=== PATIENT | female | born 1960 | race Caucasian/White ===

== ENCOUNTER 2019-05-18 10:47 | Emergency (ER) | payer MEDICAID, SELFPAY ==
[2019-05-18 10:53] VITALS: BP 131/78; PULSE 50; RESP 18; TEMP 36.4; O2SAT 96; BMI 44.4
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
--- NOTE | 2019-05-18 11:34 | ECG_ITS ---
Measurements Intervals [place] Rate: 46 P: 26 [place]: 130 QRS: -39 QRSD: 111 T: -3 QT: 452 QTc: 397 SINUS BRADYCARDIA LEFT AXIS DEVIATION [QRS AXIS < -30] MODERATE INTRAVENTRICULAR CONDUCTION DELAY [110+ ms QRS DURATION] VOLTAGE CRITERIA FOR LVH [MEETS CRITERIA IN ONE OF: R(aVL), S(V1), R(V5), R(V5 (V5/V6)+S(V1)] INTERPRETATION BASED ON A DEFAULT AGE OF 40 YEARS Compared to ECG 09/27/2018 12:28:13 Intraventricular conduction delay now present Sinus rhythm no longer present Electronically Signed On 05-18-2019 15:07:35 SIX PACK PACKER by Naun Vizcarra M.D. [id number]
--- NOTE | 2019-05-18 11:34 | XR_ITS ---
WS: [id number] PORTABLE CHEST HISTORY: chest pain COMPARISON: 09/27/2018 Lungs are clear and well expanded. No pleural effusion or pneumothorax. Cardiac size: Normal. Mediastinum/Aorta: Normal mediastinum. [place] placement in the LEFT humeral head. XR/XR chest 1V portable [id number] IMPRESSION: Unremarkable portable chest.
[2019-05-18 12:27] LABS: Basophils # 0.1 10^3/uL (0.0-0.1); Basophils % 0.9 %; Eosinophils # 0.2 10^3/uL (0.0-0.8); Hematocrit 41.1 % (37.0-47.0); Hemoglobin 12.9 g/dL (11.5-15.3); Lymphocytes # 1.7 10^3/uL (0.8-4.8); Lymphocytes % 32.7 %; Mean Corpuscular HGB Conc 31.4 g/dL (30.0-36.0); Mean Corpuscular Hemoglobin 28.7 pg (28.0-34.0); Mean Corpuscular Volume 91.3 fL (81-99); Mean Platelet Volume 10.1 fL (7.4-10.4); Monocytes # 0.4 10^3/uL (0.2-0.9); Monocytes % 8.3 %; Neutrophils # 2.9 10^3/uL (1.8-7.7); Neutrophils % 53.9 %; Nucleated Red Blood Cells % 0 %; Platelet Count 355 10^3/cmm (130-400); Red Cell Distribution Width 12.2 % (12.1-15.1); White Blood Count 5.3 10^3/uL (4.0-10.0)
[2019-05-18] MEDS: acetaminophen 500 mg Tablet PO (12:56)
[2019-05-18] MEDS: aspirin 325 mg Tablet PO (12:56)
[2019-05-18 12:58] LABS: Alanine Aminotransferase 14 U/L (0-33); Albumin Level 4.3 g/dL (3.5-5.2); Alkaline Phosphatase 91 IU/L (35-105); Anion Gap 16.3 (5-19); Aspartate Amino Transferase 16 U/L (0-32); Blood Urea Nitrogen 15 mg/dL (8-23); Calcium 9.2 mg/Dl (8.8-10.2); Carbon Dioxide 20 mmol/L (22-29); Chloride 106 mmol/L (98-107); Globulin 2.5 g/dL (1.3-4.6); Glomerular Filtration Rate 73.2 mL/min (90-130); Glucose 199 mg/dL (74-106); NT Pro B Type Natriuretic Pept 165 pg/mL (0-125); Potassium 4.3 mmol/L (3.5-5.1); Sodium 138 mmol/L (136-145); Total Bilirubin 0.2 mg/dL (0.15-1.2); Total Protein 6.8 g/dL (6.6-8.7)
[2019-05-18 13:28] LABS: Troponin(5th) Baseline 36 ng/mL (0-10)
[2019-05-18 15:03] LABS: Troponin 5 2HR 39.11 ng/mL (0-10)
[2019-05-18 15:08] LABS: Troponin 5 2HR Delta 3.11 ABS# (0-10)
[2019-05-18 15:38] VITALS: BP 133/64; PULSE 52; RESP 20; O2SAT 94
--- NOTE | 2019-05-18 17:34 | ECG_ITS ---
Measurements Intervals [place] Rate: 46 P: 24 [place]: 129 QRS: -38 QRSD: 94 T: -8 QT: 459 QTc: 405 SINUS BRADYCARDIA LEFT AXIS DEVIATION [QRS AXIS < -30] VOLTAGE CRITERIA FOR LVH [MEETS CRITERIA IN ONE OF: R(aVL), S(V1), R(V5), R (V5/V6)+S(V1)] Compared to ECG 09/27/2018 12:28:13 Sinus rhythm no longer present Electronically Signed On 05-18-2019 15:08:42 HYDROELECTRIC PLANT OPERATOR by Naun Vizcarra M.D. [id number]
--- NOTE | 2019-05-21 15:56 | DCPLANNER ---
environmental department manager had message to schedule a follow up appointment for patient with [facility]. environmental department manager called [facility], spoke with Latrice, a follow up appointment is scheduled for Wednesday, May 22, 2019 at 11:[address] Mitchell. Clinic will call patient with appointment information.
--- NOTE | 2019-05-25 14:48 | DCPLANNER ---
Patient attended appointment scheduled with [facility].
== END 2019-05-18 15:32 | disposition home or self-care (01) ==
PROVIDERS: Emergency Provider Family Medicine; Family Provider Internal Medicine; PCP Internal Medicine
DX: R07.9 Chest pain, unspecified (principal); I25.10 Atherosclerotic heart disease of native coronary artery without angina pectoris
CPT/HCPCS: 36415; 71045; 80053; 83880; 84484; 85025; 93005; 99281

== ENCOUNTER 2019-06-19 14:12 | Outpatient (CLI) | payer MEDICAID, SELFPAY ==
--- NOTE | 2019-06-19 14:17 | XR_ITS ---
WS: [id number] CHEST 2 VIEWS HISTORY: HYPOXEMIA, FEVER, COUGH COMPARISON: 05/18/2019 Lungs: Clear with no abnormality. No pleural effusion or pneumothorax. Cardiac size: Normal. Mediastinum/Aorta: Normal mediastinum. Bones: Prior anchor placement LEFT humeral head from rotator cuff repair. Mild thoracic spondylosis. XR/XR chest 2V* [id number] IMPRESSION: No acute cardiopulmonary disease. No pneumonia.
== END 2019-06-19 14:13 | disposition home or self-care (01) ==
LOC: RADWPI 14:15
PROVIDERS: Family Provider Internal Medicine; PCP Internal Medicine; Visit Provider Nurse Practitioner Family
DX: R09.02 Hypoxemia (principal); R05 Cough; R50.9 Fever, unspecified
CPT/HCPCS: 71046

== ENCOUNTER 2019-07-24 12:25 | Outpatient (CLI) | payer MEDICAID, SELFPAY ==
--- NOTE | 2019-07-24 12:33 | XR_ITS ---
WS: [id number] Right arm and humerus, 2 views, 07/24/2019 Clinical Data: R SHOULDER ARM PAIN Comparison: None. Findings: No fractures or dislocations are seen. The shaft of the humerus is intact. Soft tissues are normal. The visualized right elbow shows no abnormalities. XR/[place] [id number] Impression: Negative right arm and humerus.
--- NOTE | 2019-07-24 12:33 | XR_ITS ---
WS: [id number] Right shoulder, 2 views, 07/24/2019 Clinical Data: R SHOULDER ARM PAIN Comparison: None. Findings: No fractures or dislocations are seen. The AC joint is normal. The adjacent right clavicle, right sca pula and ribs are normal. The soft tissues are unremarkable. XR/XR shoulder RT min 2V* [id number] Impression: Negative right shoulder.
== END 2019-07-24 12:26 | disposition home or self-care (01) ==
PROVIDERS: Family Provider Internal Medicine; PCP Internal Medicine; Visit Provider Internal Medicine
DX: M25.511 Pain in right shoulder (principal); M79.621 Pain in right upper arm
CPT/HCPCS: 73030; 73060

== ENCOUNTER 2020-01-25 10:35 | Outpatient (CLI) | payer MEDICAID, SELFPAY ==
--- NOTE | 2020-01-25 10:43 | XR_ITS ---
WS: [id number] Right knee, 3 views, 01/25/2020 Clinical Data: R KNEE PAIN Comparison: None. Findings: There is lateral joint compartment narrowing with an osteophyte of the lateral tibial plateau and the lateral femoral condyle. The patella is intact with a small spur of the anterior superior and information systems auditor ior superior margins. There is a larger spur at the anterior inferior aspect. There are no fractures or dislocations. The soft tissues are normal. XR/XR knee RT 4V [id number] Impression: 1. Severe lateral joint compartment narrowing. 2. Mild posterior patellofemoral osteoarthritis.
--- NOTE | 2020-01-25 11:22 | MM_ITS ---
WS: [id number] BILATERAL DIGITAL SCREENING MAMMOGRAM WITH CAD CLINICAL INFORMATION: SCREEN HISTORY: Screening mammogram. No current complaints. COMPARISON: TECHNIQUE: Bilateral CC and MLO views. FINDINGS: Fatty-replaced breasts bilaterally. No suspicious focal mass, asymmetry, calcifications, or ui architect ural distortion. No evidence of malignancy. Lucent centered calcifications. MM/[place] [id number] IMPRESSION: BI-RADS: 2-Benign FOLLOW UP: 1 Year Follow-up Recommend return to annual screening mammography.
== END 2020-01-25 10:36 | disposition home or self-care (01) ==
PROVIDERS: PCP Internal Medicine; Visit Provider Internal Medicine
DX: Z12.31 Encounter for screening mammogram for malignant neoplasm of breast (principal); M17.11 Unilateral primary osteoarthritis, right knee
CPT/HCPCS: 73564; 77067

== ENCOUNTER 2020-02-26 09:29 | Outpatient (CLI) | payer MEDICAID, SELFPAY ==
--- NOTE | 2020-02-26 09:46 | XR_ITS ---
WS: [id number] PROCEDURE: XR chest 2V* [id number] CLINICAL INFORMATION: COUGH, VIRAL SYNDROME COMPARISON: June 19, 2019 FINDINGS: Heart: Normal cardiac silhouette. Lungs: Lungs are clear. No consolidation or pleural fluid. No acute pulmonary infiltrates. Bones: Left rotator cuff anchors. Hypertrophic changes thoracic spine with mild thoracic kyphosis. XR/XR chest 2V* [id number] IMPRESSION: Mild chronic emphysematous changes. Lungs appear well aerated. No acute pulmona ry infiltrates.
== END 2020-02-26 09:30 | disposition home or self-care (01) ==
PROVIDERS: PCP Internal Medicine; Visit Provider Nurse Practitioner Family
DX: R05 Cough (principal); B97.89 Other viral agents as the cause of diseases classified elsewhere
CPT/HCPCS: 71046

== ENCOUNTER 2020-07-08 12:17 | Outpatient (CLI) | payer MEDICAID, SELFPAY ==
--- NOTE | 2020-07-08 12:35 | USCV_ITS ---
Angelica Acevedo Age: 60 Gender: F : 1960 Exam Date: 07/08/2020 12:49 Ordering Phys: Concha Whitaker Technologist: Desirae Roman Exam Location: [facility] [place] Indication: RLE PAIN AND SWELLING HISTORY: Lower extremity swelling. Lower extremity pain. PROCEDURES: Venous duplex imaging was performed in only the right lower extremity. The following venous structures were evaluated: common femoral vein, profunda vein, proximal portion of the greater saphenous vein, superficial femoral vein, and the popliteal vein. In addition, the posterior tibial veins were evaluated. Serial compression, augmentation maneuvers, and spectral Doppler flow evaluation were performed. FINDINGS: No evidence of DVT seen in any vessel visualized at this time. CONCLUSIONS No evidence of right lower extremity DVT. Brandon Emmanuel MD (Electronically Signed) Final Date: 08 July 2020 15:10 S
== END 2020-07-08 12:18 | disposition home or self-care (01) ==
LOC: RAD 12:20
PROVIDERS: PCP Internal Medicine; Visit Provider Nurse Practitioner Family
DX: M79.604 Pain in right leg (principal); R22.41 Localized swelling, mass and lump, right lower limb
CPT/HCPCS: 93971

== ENCOUNTER 2020-08-30 19:56 | Emergency (ER) | payer MEDICAID, SELFPAY ==
[2020-08-30 20:01] VITALS: BP 169/89; PULSE 83; RESP 18; TEMP 36.4; O2SAT 97; BMI 45.7
[2020-08-30 21:31] LABS: Add Urine Microscopic? NO; Charge for UA Resulting for Rev
--- NOTE | 2020-08-30 21:33 | CTR_ITS ---
PROCEDURE INFORMATION: Exam: CT Head Without Contrast Exam date and time: 08/30/2020 10:16 PM Age: 60 years old Clinical indication: Patient HX: C/O dizziness and weakness w elev blood sugar TECHNIQUE: Imaging protocol: Computed tomography of the head without contrast. Radiation optimization: All CT scans at this facility use at least one of these dose optimization techniques: automated exposure control; mA and/or kV adjustment per patient size (includes targeted exams where dose is matched to clinical indication); or iterative reconstruction. COMPARISON: CT head wo con* [id number] 10/09/2016 5:23 PM RADIATION DOSE METRICS: Total DLP (mGy-cm): 867 FINDINGS: Brain: There is mild diffuse cerebral atrophy. Patchy areas of hypoattenuation are seen in the deep white matter of the cerebral hemispheres bilaterally compatible with deep white matter microvascular disease. There is some subtle hypoattenuation seen in the right subthalamic region appears more distinct today compared with 10/09/2016 possibly representing lacunar infarction of indeterminate age. Follow-up MRI evaluation with diffusion-weighted imaging sequences is suggested. Cerebral ventricles: No ventriculomegaly. Bones/joints: Unremarkable. No acute fracture. Paranasal sinuses: Visualized sinuses are unremarkable. No fluid levels. Mastoid air cells: Visualized mastoid air cells are well aerated. Soft tissues: Unremarkable. CT/CT head wo con* [id number] IMPRESSION: Patchy area hypoattenuation seen in the subthalamic region on the right possibly representing a lacunar infarction of indeterminate age. Follow-up evaluation with MRI including diffusion-weighted imaging sequences is suggested. Radiation Dose CTDIVOL = (mGy): DLP = 867 (mGy-cm)
--- NOTE | 2020-08-30 21:33 | ECG_ITS ---
[facility] Test Date: 2020-08-30 Pat Name: Angelica Acevedo Department: Room: Gender: Female Wind Field Manager: : 1960 Requested By: Justin Ribeiro Order Number: [id number] Shayy MD: Linda Mcpherson M.D. Measurements Intervals [place] Rate: 76 P: 41 [place]: 136 QRS: -44 QRSD: 113 T: 46 QT: 389 QTc: 439 Interpretive Statements SINUS RHYTHM LEFT AXIS DEVIATION [QRS AXIS < -30] MODERATE INTRAVENTRICULAR CONDUCTION DELAY [110+ ms QRS DURATION] VOLTAGE CRITERIA FOR LVH [MEETS CRITERIA IN ONE OF: R(aVL), S(V1), R(V5), R(V5/V6)+S(V1)] Compared to ECG 05/18/2019 13:13:41 Intraventricular conduction delay now present Sinus bradycardia no longer present Electronically Signed On 08-31-2020 10:28:09 CDT by Linda Mcpherson M.D. [id number] f
--- NOTE | 2020-08-30 21:33 | XRR_ITS ---
PROCEDURE INFORMATION: Exam: XR Chest Exam date and time: 08/30/2020 9:34 PM Age: 60 years old Clinical indication: Other: Weakness TECHNIQUE: Imaging protocol: XR of the chest. Views: 1 view. COMPARISON: CR XR chest 2V* [id number] 02/26/2020 9:53 AM FINDINGS: Lungs: Unremarkable. No consolidation. Pleural spaces: Unremarkable. No pleural effusion. No pneumothorax. Heart/Mediastinum: Unremarkable. No cardiomegaly. Bones/joints: Unremarkable. XR/XR chest 1V portable [id number] IMPRESSION: No acute findings.
--- NOTE | 2020-08-30 21:38 | W.ED.GENADLT ---
HPI - General Adult General: Chief complaint: General Medical Stated complaint: HIGH BLOOD SUGAR Time Seen by Provider: 08/30/20 21:19 Source: patient Mode of arrival: ambulatory Limitations: no limitations History of Present Illness: HPI narrative: 60-year-old female states that her blood sugars been running high throughout the day and was 550 earlier today. States that she woke up this morning and felt dizzy and weak. She states she is had some blurred vision along with some slurred speech. Patient here has had no slurred speech currently. She states that she has had no vomiting or diarrhea. Denies any headache. Denies any worsening improving factors. Associated symptoms: Deny chest pain, dyspnea, nausea, rash or vomiting Review of Systems Const: Denies: fever(s), chills, body aches or change in appetite Eyes: Denies: blurry vision or eye discomfort ENMT: Denies: throat pain or dental pain Card: Denies: chest pain Resp: Denies: dyspnea GI: Denies: abdominal pain, nausea, vomiting or diarrhea : Denies: dysuria Musc: Denies: neck pain or back pain Skin/Breast: Denies: rash Neuro: Reports: numbness in extremities and Slurred speech present Psych: Denies: depression Alec/Lymph: Denies: easy bruising All/Imm: Denies: urticaria PFSH ED PFSH: Medical History (Updated 08/30/20 @ 22:59 by Justin Ribeiro MD) CHF (congestive heart failure) Chronic diastolic heart failure secondary to coronary artery disease Coronary artery disease Hyperlipidemia Hypertension Hypothyroid Umbilical hernia Surgical History History of carpal tunnel surgery History of heart artery stent History of shoulder surgery Family History Other CAD (coronary artery disease) Cancer Hyperlipidemia Hypertension Social History Smoking and tobacco status: never smoked Alcohol intake: never Physical Exam Const: COMMON NORMALS: no acute distress, patient oriented x3, healthy appearing and alert ORIENTATION/CONSCIOUSNESS: Yes oriented to person, Yes oriented to place and Yes oriented to time HENMT: COMMON NORMALS: normocephalic and atraumatic HEAD & SCALP: normocephalic and atraumatic Eye: COMMON NORMALS: Equal, round and reactive pupils present and EOMs intact bilaterally PUPIL: Yes Equal, round and reactive pupils present Neck/C-Spine: COMMON NORMALS: full ROM and supple Chest: COMMONS NORMALS: normal inspection of the chest and normal palpation of entire chest wall Resp: COMMON NORMALS: normal respiratory effort, No retractions, No use of accessory muscles and clear to auscultation bilaterally AUSCULTATION: clear to auscultation bilaterally Cardio: COMMON NORMALS: regular rate, regular rhythm and No murmurs present (Cardio) RATE: regular rate RHYTHM: regular rhythm GI: COMMON NORMALS: Normal to inspection, nondistended, normoactive bowel sounds present, Soft to palpation, non-tender and no masses PALPATION: Yes Soft to palpation Extremity: COMMON NORMALS: normal to inspection and full ROM Neuro: COMMON NORMALS: patient oriented x3, moves all extremities and no focal motor deficits SENSORIUM/ORIENTATION: Yes alert, Yes oriented to person, Yes oriented to place and Yes oriented to time SPEECH: speech normal GAIT: Yes Normal gait present MOTOR EXAM: 5/5 motor strength present throughout Psych: COMMON NORMALS: mental status grossly normal, Normal thought process present and cooperative THOUGHT PROCESS: Normal thought process present Skin: COMMON NORMALS: no rashes or lesions noted and no wounds GENERAL SKIN EXAM: no rashes or lesions noted Course Vital Signs: Vital signs: Vital Signs Temperature 97.6 F 08/30/20 20:01 Pulse Rate 87 08/30/20 23:13 Respiratory Rate 17 08/30/20 23:13 Blood Pressure 145/79 08/30/20 23:13 Pulse Oximetry 99 08/30/20 23:13 MDM - General Adult MDM Narrative: Medical decision making narrative: Angelica presents with hyperglycemia is improved. Her blood sugar is back to normal level. All her symptoms have resolved and she feels much improved. I did go over CT findings informed her there is a concern of a possible stroke. I strongly recommended admission for an MRI. She states she feels improved and does not want stay in the hospital. She states she has a appoint with her PCP on and would rather get an MRI outpatient. I informed her that she could have a worsening stroke. She understands this and has decision made capacity. She decide to sign out AMA. Will start on glipizide and she is return if worsening or if she changes her mind. She understands agrees to plan. Lab Data: Labs: Lab Results 08/30/20 08/30/20 08/30/20 Range/Units 21:00 22:01 22:01 WBC 6.9 (4.0-10.0) 10^3/ uL RBC 4.50 (4.1-5.3) 10^6/u L Hgb 13.4 (11.5-15.3) g/dL Hct 40.7 (37.0-47.0) % MCV 90.4 (81-99) fL MCH 29.8 (28.0-34.0) pg MCHC 32.9 (30.0-36.0) g/dL RDW 12.0 L (12.1-15.1) % Plt Count 370 (130-400) 10^3/c mm MPV 10.0 (7.4-10.4) fL Neut % (Auto) 60.1 % Lymph % (Auto) 29.5 % Reynolds % (Auto) 7.1 % Eos % (Auto) 2.5 % Baso % (Auto) 0.7 % Neut # (Auto) 4.14 (1.8-7.7) 10^3/u L Lymph # (Auto) 2.0 (0.8-4.8) 10^3/u L Reynolds # (Auto) 0.5 (0.2-0.9) 10^3/u L Eos # (Auto) 0.2 (0.0-0.8) 10^3/u L Baso # (Auto) 0.1 (0.0-0.1) 10^3/u L Nucleated RBC % (a uto) 0 % Nucleated RBCs # 0.0 /100WBC Sodium 134 L (136-145) mmol/L Potassium 4.5 (3.5-5.1) mmol/L Chloride 98 (98-107) mmol/L Carbon Dioxide 27 (22-29) mmol/L Anion Gap 13.5 (5-19) BUN 17 (8-23) mg/dL Creatinine 0.7 (0.5-0.9) mg/dL GFR Calculation 84.8 L (90-130) mL/min Glucose 341 H (65-115) mg/dL POC Glucose (70-110) mg/dL Calculated Osmolal ity 293 (285-295) mOsm/k g Calcium 8.9 (8.5-10.5) mg/dL Total Bilirubin 0.3 (0.15-1.2) mg/dL AST 17 (0-32) U/L ALT 20 (0-33) U/L Alkaline Phosphata se 107 H (35-105) IU/L Total Protein 7.5 (6.6-8.7) g/dL Albumin 4.1 (3.5-5.2) g/dL Globulin 3.4 (1.3-4.6) g/dL Urine Color Yellow (Yellow) Urine Appearance Clear (CLEAR) Urine pH 5 (5-7) Ur Specific Gravit y 1.010 (1.005-1.030) Urine Protein Neg (Negative) Urine Glucose (UA) 4+ H (Normal) Urine Ketones Negative (Negative) Urine Blood Neg (Negative) Urine Nitrate Negative (Negative) Urine Bilirubin Neg (Negative) Urine Urobilinogen Norm (Negative) mg/dL Ur Leukocyte Jacklyn ase Negative (Negative) Serum Ketones (Negative) 08/30/20 08/30/20 08/30/20 Range/Units 22:01 22:08 22:46 WBC (4.0-10.0) 10^3/ uL RBC (4.1-5.3) 10^6/u L Hgb (11.5-15.3) g/dL Hct (37.0-47.0) % MCV (81-99) fL MCH (28.0-34.0) pg MCHC (30.0-36.0) g/dL RDW (12.1-15.1) % Plt Count (130-400) 10^3/c mm MPV (7.4-10.4) fL Neut % (Auto) % Lymph % (Auto) % Reynolds % (Auto) % Eos % (Auto) % Baso % (Auto) % Neut # (Auto) (1.8-7.7) 10^3/u L Lymph # (Auto) (0.8-4.8) 10^3/u L Reynolds # (Auto) (0.2-0.9) 10^3/u L Eos # (Auto) (0.0-0.8) 10^3/u L Baso # (Auto) (0.0-0.1) 10^3/u L Nucleated RBC % (a uto) % Nucleated RBCs # /100WBC Sodium (136-145) mmol/L Potassium (3.5-5.1) mmol/L Chloride (98-107) mmol/L Carbon Dioxide (22-29) mmol/L Anion Gap (5-19) BUN (8-23) mg/dL Creatinine (0.5-0.9) mg/dL GFR Calculation (90-130) mL/min Glucose (65-115) mg/dL POC Glucose 353 H 164 H (70-110) mg/dL Calculated Osmolal ity (285-295) mOsm/k g Calcium (8.5-10.5) mg/dL Total Bilirubin (0.15-1.2) mg/dL AST (0-32) U/L ALT (0-33) U/L Alkaline Phosphata se (35-105) IU/L Total Protein (6.6-8.7) g/dL Albumin (3.5-5.2) g/dL Globulin (1.3-4.6) g/dL Urine Color (Yellow) Urine Appearance (CLEAR) Urine pH (5-7) Ur Specific Gravit y (1.005-1.030) Urine Protein (Negative) Urine Glucose (UA) (Normal) Urine Ketones (Negative) Urine Blood (Negative) Urine Nitrate (Negative) Urine Bilirubin (Negative) Urine Urobilinogen (Negative) mg/dL Ur Leukocyte Jacklyn ase (Negative) Serum Ketones Negative (Negative) Imaging Data^: CT Head: Attestation: I personally reviewed and interpreted this imaging study as follows: My impression: [address] [address] [address] Scan Report Signed Patient: Angelica Acevedo Unit #: [id number] : 1960 Age/Sex: 60 / F ADM Date: 08/30/20 Loc: ER Room/Bed: Attending Dr: Ordering Provider/Ordering MD: Justin Ribeiro MD Date of Service: 08/30/20 Procedure(s): CT head wo con* [id number] Accession Number(s): [id number] Report Number: [id number] PROCEDURE INFORMATION: Exam: CT Head Without Contrast Exam date and time: 08/30/2020 10:16 PM Age: 60 years old Clinical indication: Patient HX: C/O dizziness and weakness w elev blood sugar TECHNIQUE: Imaging protocol: Computed tomography of the head without contrast. Radiation optimization: All CT scans at this facility use at least one of these dose optimization techniques: automated exposure control; mA and/or kV adjustment per patient size (includes targeted exams where dose is matched to clinical indication); or iterative reconstruction. COMPARISON: CT head wo con* [id number] 10/09/2016 5:23 PM RADIATION DOSE METRICS: Total DLP (mGy-cm): 867 FINDINGS: Brain: There is mild diffuse cerebral atrophy. Patchy areas of hypoattenuation are seen in the deep white matter of the cerebral hemispheres bilaterally compatible with deep white matter microvascular disease. There is some subtle hypoattenuation seen in the right subthalamic region appears more distinct today compared with 10/09/2016 possibly representing lacunar infarction of indeterminate age. Follow-up MRI evaluation with diffusion-weighted imaging sequences is suggested. Cerebral ventricles: No ventriculomegaly. Bones/joints: Unremarkable. No acute fracture. Paranasal sinuses: Visualized sinuses are unremarkable. No fluid levels. Mastoid air cells: Visualized mastoid air cells are well aerated. Soft tissues: Unremarkable. CT/CT head wo con* [id number] IMPRESSION: Patchy area hypoattenuation seen in the subthalamic region on the right possibly representing a lacunar infarction of indeterminate age. Follow-up evaluation with MRI including diffusion-weighted imaging sequences is suggested. EKG Data^: EKG 1: Attestation: I personally reviewed and interpreted this EKG as follows: EKG interpretation date: 08/30/20 EKG interpretation time: 22:13 Interpretation: nsr hr [address] or t wave abnormalities qrs 113 qtc 419 Computer generated interpretation: Head CT 08/30/20 21:33 IMPRESSION: Patchy area hypoattenuation seen in the subthalamic region on the right possibly representing a lacunar infarction of indeterminate age. Follow-up evaluation with MRI including diffusion-weighted imaging sequences is suggested. Radiation Dose CTDIVOL = (mGy): DLP = 867 (mGy-cm) Discharge Plan Discharge Patient Disposition: Left Against Medical Advice Clinical Impression: Hyperglycemia, Brain TIA Condition: Stable Prescriptions: New glipizide 5 mg tablet extended release 24hr 5 mg PO DAILY Qty: 30 RF: 0 No Action (DME) Diabetic Shoes Qty: 1 RF: 0 Plavix 75 mg tablet 75 mg PO DAILY Qty: 90 RF: 3 metoprolol tartrate 25 mg tablet 12.5 mg PO BID Qty: 30 RF: 1 isosorbide mononitrate 30 mg tablet extended release 24 hr See Rx Instructions .ROUTE .COMPLEX Qty: 60 RF: 1 Aspir-81 81 mg Tablet,Delayed Release (Dr/Ec) 81 mg PO DAILY RF: 0 levothyroxine 150 mcg Tablet 150 mcg PO DAILY RF: 0 Referrals: Leslie Hansen DO [Primary Care Provider] - 1-3 days Discharge Diet: Advance as tolerated Discharge Activity: Resume usual activity Patient Instructions: Hyperglycemia, Transient Ischemic Attack (ED) Coding Level of Care Code ED Hospital Medical Assistant for Philip Alexandre Exam Comprehensive NIH stroke score NIHSS Level Of Consciousness - 1a: 0 Level Of Consciousness Questions - 1b: Both Correct Level Of Consciousness Commands - 1c: Both Correct Best Gaze - 2: Normal Visual [place] - 3: No Visual Loss Facial Palsy - 4: Normal Motor Arm Right - 5: No Drift Motor Arm Left - 5: No Drift Motor Leg Right - 6: No Drift Motor Leg Left - 6: No Drift Limb Ataxia - 7: Absent Sensory - 8: Normal Best Language - 9: No Aphasia Dysarthia - 10: Normal Extinction And Inattention - 11: 0 Score Total Score: 0
[2020-08-30 21:51] LABS: Bilirubin Urine Neg (Negative); Blood Urine Neg (Negative); Glucose Urine UA 4+ (Normal); Ketones Urine Negative (Negative); Nitrate Urine Negative (Negative); Protein Urine Neg (Negative); Urine Appearance Clear (CLEAR); Urine Color Yellow (Yellow); pH Urine 5 (5-7)
[2020-08-30 21:52] LABS: Leukocyte Esterase Urine Negative (Negative); Urobilinogen Urine Norm (Negative)
[2020-08-30] MEDS: sodium chloride 0.9% 1,000 ML 999 ML IV (22:01)
[2020-08-30] MEDS: insulin regular-human 100 units/1 mL 10 UNIT IVP (22:01)
[2020-08-30 22:11] LABS: Basophils # 0.1 10^3/uL (0.0-0.1); Basophils % 0.7 %; Eosinophils # 0.2 10^3/uL (0.0-0.8); Eosinophils % 2.5 %; Hematocrit 40.7 % (37.0-47.0); Hemoglobin 13.4 g/dL (11.5-15.3); Lymphocytes % 29.5 %; Mean Corpuscular HGB Conc 32.9 g/dL (30.0-36.0); Mean Corpuscular Hemoglobin 29.8 pg (28.0-34.0); Mean Corpuscular Volume 90.4 fL (81-99); Monocytes # 0.5 10^3/uL (0.2-0.9); Monocytes % 7.1 %; Neutrophils # 4.14 10^3/uL (1.8-7.7); Neutrophils % 60.1 %; Nucleated Red Blood Cells % 0 %; Platelet Count 370 10^3/cmm (130-400); White Blood Count 6.9 10^3/uL (4.0-10.0)
[2020-08-30 22:13] LABS: Glucose Point of Care 353 mg/dL (70-110)
--- NOTE | 2020-08-30 22:16 | PC.NURSE ---
EKG taken and given to Dr. Ribeiro
[2020-08-30 22:17] VITALS: BP 112/78; PULSE 102; RESP 16; O2SAT 98
[2020-08-30 22:30] LABS: Ketone (Acetest) Serum Negative (Negative)
[2020-08-30 22:35] LABS: Alanine Aminotransferase 20 U/L (0-33); Albumin Level 4.1 g/dL (3.5-5.2); Alkaline Phosphatase 107 IU/L (35-105); Anion Gap 13.5 (5-19); Aspartate Amino Transferase 17 U/L (0-32); Blood Urea Nitrogen 17 mg/dL (8-23); Calcium 8.9 mg/dL (8.5-10.5); Carbon Dioxide 27 mmol/L (22-29); Chloride 98 mmol/L (98-107); Globulin 3.4 g/dL (1.3-4.6); Glomerular Filtration Rate 84.8 mL/min (90-130); Glucose 341 mg/dL (65-115); Osmolality Calculated 293 mOsm/kg (285-295); Potassium 4.5 mmol/L (3.5-5.1); Sodium 134 mmol/L (136-145); Total Bilirubin 0.3 mg/dL (0.15-1.2); Total Protein 7.5 g/dL (6.6-8.7)
[2020-08-30 22:49] LABS: Glucose Point of Care 164 mg/dL (70-110)
[2020-08-30 23:13] VITALS: BP 145/79; PULSE 87; RESP 17; O2SAT 99
== END 2020-08-30 23:13 | disposition left against medical advice (07) ==
PROVIDERS: Emergency Provider Emergency Medicine; PCP Internal Medicine
DX: R73.9 Hyperglycemia, unspecified (principal); Z79.02 Long term (current) use of antithrombotics/antiplatelets; Z79.82 Long term (current) use of aspirin; I11.0 Hypertensive heart disease with heart failure; I50.30 Unspecified diastolic (congestive) heart failure; I25.10 Atherosclerotic heart disease of native coronary artery without angina pectoris; E78.5 Hyperlipidemia, unspecified
CPT/HCPCS: 36416; 70450; 71045; 80053; 81003; 82009; 82962; 85025; 93005; 96361; 96374; 99283; J1815; J7030

== ENCOUNTER 2020-09-08 16:38 | Emergency (ER) | payer MEDICAID, SELFPAY ==
[2020-09-08 16:45] VITALS: BP 186/86; PULSE 87; RESP 20; TEMP 36.1; O2SAT 95; BMI 45.7
--- NOTE | 2020-09-08 18:51 | XR_ITS ---
WS: [id number] Exam: XR chest 1V portable [id number] Date/Time of Exam: 09/08/2020 7:02 PM Reason For Exam: cp Comparison 08/30/2020. Findings: The lungs are clear and fully expanded. Costophrenic angles are sharp. No infiltrates. Bronchovascula r relief appears normal. Cardiac silhouette is unremarkable. Bony elements are intact. Anchoring scre ws in the left humeral head. XR/XR chest 1V portable [id number] IMPRESSION: Unremarkable chest radiograph.
--- NOTE | 2020-09-08 18:51 | ECG_ITS ---
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1960 Requested By: Justni Ribeiro Order Number: [id number] Reading MD: JOHNATHAN FISHMAN Measurements Intervals [place] Rate: 89 P: 23 MO: 140 QRS: -41 QRSD: 97 T: 42 QT: 352 QTc: 430 Interpretive Statements SINUS RHYTHM LEFT AXIS DEVIATION [QRS AXIS < -30] PATTERN CONSISTENT WITH PULMONARY DISEASE VOLTAGE CRITERIA FOR LVH [MEETS CRITERIA IN ONE OF: R(aVL), S(V1), R(V5), R(V5/V6)+S(V1)] Compared to ECG 08/30/2020 22:13:11 Intraventricular conduction delay no longer present Electronically Signed On 09-08-2020 21:23:17 CDT by JOHNATHAN FISHMAN [id number]
--- NOTE | 2020-09-08 19:00 | ED_ITS ---
HPI - Chest Pain General: Chief Complaint: Chest Pain Stated Complaint: chest pain twice today Time Seen by Provider: 09/08/20 18:37 Source: patient Mode of arrival: ambulatory Limitations: no limitations History of Present Illness: HPI narrative: 60-year-old female who has a history of coronary disease had stent placed years ago. She states that she has had 2 severe episodes of chest pain today that felt like her previous heart attack. She states it was relieved with nitro. States her pain is currently a 3 out of 10. Denies any vomiting or diaphoresis. She denies any shortness of breath. Denies any worsening factors and it was improved with nitro. Associated symptoms: Deny abdominal pain, dyspnea, fever(s), nausea or vomiting Review of Systems Const: Denies: fever(s), chills, body aches or change in appetite Eyes: Denies: blurry vision or eye discomfort ENMT: Denies: throat pain or dental pain Card: Reports: chest pain Resp: Denies: dyspnea GI: Denies: abdominal pain, nausea, vomiting or diarrhea : Denies: dysuria Musc: Denies: neck pain or back pain Skin/Breast: Denies: rash Neuro: Denies: headache(s) Psych: Denies: depression Alec/Lymph: Denies: easy bruising All/Imm: Denies: urticaria PFSH ED PFSH: Medical History (Updated 09/08/20 @ 23:14 by Justin Ribeiro MD) CHF (congestive heart failure) Chronic diastolic heart failure secondary to coronary artery disease Coronary artery disease The EKG on 08/30/2020 revealed sinus rhythm with a left axis deviation. LVH. No acute ST-T changes. Hyperlipidemia Hypertension Hypothyroid Umbilical hernia Surgical History History of carpal tunnel surgery History of heart artery stent History of shoulder surgery Family History Father Anesthesia complication Clotting disorder CAD (coronary artery disease) Dementia Mother Clotting disorder CAD (coronary artery disease) Diabetes Brother Clotting disorder Other Hyperlipidemia Hypertension Denies family history of Chronic kidney disease (CKD) Suicide Bleeding disorder Lung disease Cancer Stroke Social History Smoking and tobacco status: never smoked Alcohol intake: never Physical Exam Const: COMMON NORMALS: no acute distress, patient oriented x3 and healthy appearing HENMT: COMMON NORMALS: normocephalic and atraumatic HEAD & SCALP: normocephalic and atraumatic Eye: COMMON NORMALS: Equal, round and reactive pupils present and EOMs intact bilaterally PUPIL: Yes Equal, round and reactive pupils present Neck/C-Spine: COMMON NORMALS: full ROM and supple Chest: COMMONS NORMALS: normal inspection of the chest and normal palpation of entire chest wall Resp: COMMON NORMALS: normal respiratory effort, No retractions, No use of accessory muscles and clear to auscultation bilaterally AUSCULTATION: clear to auscultation bilaterally Cardio: COMMON NORMALS: regular rate, regular rhythm and No murmurs present (Cardio) RATE: regular rate RHYTHM: regular rhythm GI: COMMON NORMALS: Normal to inspection, nondistended, normoactive bowel sounds present, Soft to palpation, non-tender and no masses PALPATION: Yes Soft to palpation Extremity: COMMON NORMALS: normal to inspection and full ROM Neuro: COMMON NORMALS: patient oriented x3, moves all extremities and no focal motor deficits Psych: COMMON NORMALS: mental status grossly normal, Normal thought process present and cooperative THOUGHT PROCESS: Normal thought process present Skin: COMMON NORMALS: no rashes or lesions noted and no wounds GENERAL SKIN EXAM: no rashes or lesions noted Course Vital Signs: Vital signs: Vital Signs Temperature 96.9 F L 09/08/20 16:45 Pulse Rate 63 09/08/20 23:30 Respiratory Rate 15 09/08/20 23:30 Blood Pressure 176/82 09/08/20 23:30 Pulse Oximetry 96 09/08/20 23:30 MDM - Chest Pain MDM Narrative: Medical decision making narrative: Patient presents with chest pains atypical in nature. She has been pain-free here and her EKG and troponins are normal. 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 She has no signs of acute coronary syndrome or pulmonary embolism Lab Data: Labs: Lab Results 09/08/20 09/08/20 09/08/20 Range/Units 19:15 19:15 19:15 WBC 6.6 (4.0-10.0) 10^3/ uL RBC 4.29 (4.1-5.3) 10^6/u L Hgb 12.8 (11.5-15.3) g/dL Hct 38.8 (37.0-47.0) % MCV 90.4 (81-99) fL MCH 29.8 (28.0-34.0) pg MCHC 33.0 (30.0-36.0) g/dL RDW 12.4 (12.1-15.1) % Plt Count 379 (130-400) 10^3/c mm MPV 10.3 (7.4-10.4) fL Neut % (Auto) 64.0 % Lymph % (Auto) 25.5 % Ponce % (Auto) 7.1 % Eos % (Auto) 2.1 % Baso % (Auto) 0.8 % Neut # (Auto) 4.25 (1.8-7.7) 10^3/u L Lymph # (Auto) 1.7 (0.8-4.8) 10^3/u L Ponce # (Auto) 0.5 (0.2-0.9) 10^3/u L Eos # (Auto) 0.1 (0.0-0.8) 10^3/u L Baso # (Auto) 0.1 (0.0-0.1) 10^3/u L Nucleated RBC % (a uto) 0 % Nucleated RBCs # 0.0 /100WBC Sodium Cancelled Potassium Cancelled Chloride Cancelled Carbon Dioxide Cancelled Anion Gap Cancelled BUN Cancelled Creatinine Cancelled GFR Calculation Cancelled Glucose Cancelled Calculated Osmolal ity Cancelled Calcium Cancelled Total Bilirubin Cancelled AST Cancelled ALT Cancelled Alkaline Phosphata se Cancelled Troponin T Baselin e Cancelled Troponin T 120 Min cocopah (0-10) ng/L Delta Troponin T (0-10) ABS# Total Protein Cancelled Albumin Cancelled Globulin Cancelled 09/08/20 09/08/20 09/08/20 Range/Units 20:18 20:18 22:32 WBC (4.0-10.0) 10^3/ uL RBC (4.1-5.3) 10^6/u L Hgb (11.5-15.3) g/dL Hct (37.0-47.0) % MCV (81-99) fL MCH (28.0-34.0) pg MCHC (30.0-36.0) g/dL RDW (12.1-15.1) % Plt Count (130-400) 10^3/c mm MPV (7.4-10.4) fL Neut % (Auto) % Lymph % (Auto) % Ponce % (Auto) % Eos % (Auto) % Baso % (Auto) % Neut # (Auto) (1.8-7.7) 10^3/u L Lymph # (Auto) (0.8-4.8) 10^3/u L Ponce # (Auto) (0.2-0.9) 10^3/u L Eos # (Auto) (0.0-0.8) 10^3/u L Baso # (Auto) (0.0-0.1) 10^3/u L Nucleated RBC % (a uto) % Nucleated RBCs # /100WBC Sodium 136 Potassium 4.2 Chloride 101 Carbon Dioxide 23 Anion Gap 16.2 BUN 20 Creatinine 0.7 GFR Calculation 84.8 L Glucose 244 H Calculated Osmolal ity 293 Calcium 8.8 Total Bilirubin 0.4 AST 26 ALT 22 Alkaline Phosphata se 88 Troponin T Baselin e 12 H Troponin T 120 Min cocopah 13.50 H (0-10) ng/L Delta Troponin T 1.50 (0-10) ABS# Total Protein 7.4 Albumin 3.8 Globulin 3.6 Imaging Data^: CXR: Attestation: I personally reviewed and interpreted this imaging study as follows: My impression: no acute abnornakutues EKG Data^: EKG 1: Attestation: I personally reviewed and interpreted this EKG as follows: EKG interpretation date: 09/08/20 EKG interpretation time: 16:50 Interpretation: nsr hr [address] or t wave abnormalities qrs 106 qtc 395 EKG 2: Attestation: I personally reviewed and interpreted this EKG as follows: EKG interpretation date: 09/08/20 EKG interpretation time: 19:36 Interpretation: nsr hr [address] or t wave abnormalities qrs 97 qtc 399 Discharge Plan Discharge Patient Disposition: Home Clinical Impression: Chest pain Qualifiers: Chest pain type: unspecified Qualified Code(s): R07.9 - Chest pain, unspecified Condition: Stable Prescriptions: No Action (DME) Diabetic Shoes Qty: 1 RF: 0 Lantus Solostar U-100 Insulin 100 unit/mL (3 mL) insulin pen 20 unit SUBCUT BEDTIME@2200 RF: 0 nitroglycerin [Nitrostat] 0.4 mg tablet, sublingual 0.4 mg sublingual Q5M PRN (Reason: chest pain) Qty: 25 RF: 3 Aspir-81 81 mg Tablet,Delayed Release (Dr/Ec) 81 mg PO DAILY@2200 RF: 0 levothyroxine 125 mcg tablet 125 mcg PO DAILY@0700 RF: 0 Plavix 75 mg tablet 75 mg PO DAILY@0700 RF: 0 isosorbide mononitrate 30 mg tablet extended release 24 hr 30 mg PO BID@0700,2200 RF: 0 glipizide 5 mg tablet extended release 24hr 5 mg PO DAILY Qty: 30 RF: 0 Discharge Orders: Discharge ED (Routine); Ordered 09/08/20 Ordered By: Justin Ribeiro Referrals: Leslie Hansen DO [Primary Care Provider] - 1-3 days Discharge Diet: Advance as tolerated Discharge Activity: Resume usual activity Patient Instructions: Chest Pain (ED) Coding Level of Care Code ED Revolving Inventory Clerk for Chg Fwd Exam Comprehensive
[2020-09-08 19:21] LABS: Basophils # 0.1 10^3/uL (0.0-0.1); Basophils % 0.8 %; Eosinophils # 0.1 10^3/uL (0.0-0.8); Eosinophils % 2.1 %; Hematocrit 38.8 % (37.0-47.0); Hemoglobin 12.8 g/dL (11.5-15.3); Lymphocytes # 1.7 10^3/uL (0.8-4.8); Lymphocytes % 25.5 %; Mean Corpuscular Hemoglobin 29.8 pg (28.0-34.0); Mean Corpuscular Volume 90.4 fL (81-99); Mean Platelet Volume 10.3 fL (7.4-10.4); Monocytes # 0.5 10^3/uL (0.2-0.9); Monocytes % 7.1 %; Neutrophils # 4.25 10^3/uL (1.8-7.7); Nucleated Red Blood Cells % 0 %; Platelet Count 379 10^3/cmm (130-400); Red Blood Count 4.29 10^6/uL (4.1-5.3); Red Cell Distribution Width 12.4 % (12.1-15.1); White Blood Count 6.6 10^3/uL (4.0-10.0)
[2020-09-08] MEDS: aspirin 81 mg Chew Tablet 324 MG PO (19:26)
[2020-09-08] MEDS: nitroglycerin 0.4 mg sublingual Tablet SUBLINGUAL (19:27)
--- NOTE | 2020-09-08 20:51 | ECG_ITS ---
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 Measurements Intervals [place] Rate: 74 P: 34 AL: 144 QRS: -39 QRSD: 106 T: 45 QT: 368 QTc: 409 Interpretive Statements SINUS RHYTHM MARKED LEFT AXIS DEVIATION [QRS AXIS < -30] VOLTAGE CRITERIA FOR LVH POSSIBLE SEPTAL MYOCARDIAL INFARCTION, PROBABLY OLD Compared to ECG 08/30/2020 22:13:11 Myocardial infarct finding now present Intraventricular conduction delay no longer present Electronically Signed On 09-09-2020 17:50:37 CDT by Linda Mcpherson M.D. [id number]
[2020-09-08 20:52] LABS: Alanine Aminotransferase 22 U/L (0-33); Albumin Level 3.8 g/dL (3.5-5.2); Alkaline Phosphatase 88 IU/L (35-105); Anion Gap 16.2 (5-19); Aspartate Amino Transferase 26 U/L (0-32); Blood Urea Nitrogen 20 mg/dL (8-23); Calcium 8.8 mg/dL (8.5-10.5); Carbon Dioxide 23 mmol/L (22-29); Chloride 101 mmol/L (98-107); Globulin 3.6 g/dL (1.3-4.6); Glomerular Filtration Rate 84.8 mL/min (90-130); Glucose 244 mg/dL (65-115); Osmolality Calculated 293 mOsm/kg (285-295); Potassium 4.2 mmol/L (3.5-5.1); Sodium 136 mmol/L (136-145); Total Bilirubin 0.4 mg/dL (0.15-1.2); Total Protein 7.4 g/dL (6.6-8.7)
[2020-09-08 20:53] LABS: Troponin(5th) Baseline 12 ng/L (0-10)
[2020-09-08 21:31] VITALS: BP 163/95; PULSE 78; RESP 15; O2SAT 95
[2020-09-08 22:39] VITALS: BP 168/75; PULSE 60; RESP 18; O2SAT 94
[2020-09-08 23:30] VITALS: BP 176/82; PULSE 63; RESP 15; O2SAT 96
== END 2020-09-08 23:45 | disposition home or self-care (01) ==
PROVIDERS: Emergency Provider Emergency Medicine; PCP Internal Medicine
DX: R07.9 Chest pain, unspecified (principal); Z79.02 Long term (current) use of antithrombotics/antiplatelets; Z79.82 Long term (current) use of aspirin; Z79.4 Long term (current) use of insulin; I11.0 Hypertensive heart disease with heart failure; I50.32 Chronic diastolic (congestive) heart failure; I25.10 Atherosclerotic heart disease of native coronary artery without angina pectoris; E78.5 Hyperlipidemia, unspecified
CPT/HCPCS: 36415; 71045; 80053; 84484; 85025; 93005; 99284

== ENCOUNTER 2020-09-19 13:09 | Outpatient (CLI) | payer MEDICAID, SELFPAY ==
--- NOTE | 2020-09-19 13:30 | USCV_ITS ---
Angelica Acevedo Age: 60 Gender: F : 1960 Exam Date: 09/19/2020 13:21 Ordering Phys: Rebel Mitchell MD ([email or web address]) Technologist: Alysha Talavera Exam Location: [facility] [place] Indication: disorder of arteries and arterioles Risk Factors: diabetes Previous Vascular Surgery: none Right Brachial BP: / Left Brachial BP: / Right Left Velocity (cm/s) Spectral Plaque Velocity (cm/s) Spectral Plaque Syst/Diast Broadening Syst/Diast Broadening 115.80/14.30 Prox CCA 103.90/ 22.30 84.90/ 16.50 Mid CCA 66.80 / 11.70 90.40/ 19.80 Distal CCA 52.80 / 9.30 87.50/ 24.60 Prox ICA 95.90 / 12.10 74.70/ 14.90 Mid ICA 83.80 / 20.90 72.60/ 17.10 Distal ICA 71.60 / 15.10 133.40 ECA 85.40 0.76 ICA/CCA 0.92 Antegrade Vertebral Antegrade 61.50/ 15.40 cm/s 55.10/ 11.00 cm/s Tri Subclavian Tri 192.5 78.20 0 FINDINGS Minimal plaques of the bifurcations bilaterally. Intimal thickening in the common carotid arteries bilaterally. Antegrade flow in the vertebral arteries bilaterally. Slightly elevated Doppler flow velocities in the right subclavian artery CONCLUSIONS Minimal plaques of the bifurcations bilaterally. Intimal thickening in the common carotid arteries bilaterally. No significant stenosis in the extracranial arteries based on the above findings Elevated velocity in the right subclavian artery, could be physiological Dr Rebel Mitchell MD [facility] (Electronically Signed) Final Date: 19 Sep 2020 16:57 S
--- NOTE | 2020-09-19 14:15 | USCV_ITS ---
Angelica Acevedo Age: 60 Gender: F : 1960 Exam Date: 09/19/2020 13:46 Ordering Phys: Rebel Mitchell MD ([email or web address]) Technologist: Alysha Talavera Exam Location: [facility] Indication: other chest pain BP: 127 / 67 HR: 54 Rhythm: Sinus Technical Quality: Adequate MEASUREMENTS (Male / Female) Normal Values 2D ECHO LV Diastolic Diameter PLAX 4.6 cm 4.2 - 5.9 / 3.9 - 5.3 cm LV Systolic Diameter PLAX 2.4 cm IVS Diastolic Thickness 1.0 cm 0.6 - 1.0 / 0.6 - 0.9 cm IVS Systolic Thickness 1.3 cm LVPW Diastolic Thickness 1.0 cm 0.6 - 1.0 / 0.6 - 0.9 cm LVPW Systolic Thickness 1.6 cm LVOT Diameter 2.3 cm LV Ejection Fraction 2D Teich 78.7 % LV Ejection Fraction MOD 2C 46.2 % LV Ejection Fraction 2C AL 49.1 % LA Diameter 4.0 cm LA Width 3.5 cm LA Height 5.6 cm RA Width 2.6 cm Aorta at Sinotubular Diameter 2.8 cm M-MODE LV Diastolic Diameter MM 4.9 cm 4.2 - 5.9 / 3.9 - 5.3 cm LV Systolic Diameter MM 3.1 cm LV Ejection Fraction MM Teich 66.9 % IVS Diastolic Thickness MM 0.7 cm 0.6 - 1.0 / 0.6 - 0.9 cm IVS Systolic Thickness MM 1.1 cm LVPW Diastolic Thickness MM 0.8 cm 0.6 - 1.0 / 0.6 - 0.9 cm LVPW Systolic Thickness MM 1.5 cm Aortic Annulus Diameter 2.8 cm LA Ao Ratio MM 1.5 MV E Point Septal Separation 0.5 cm DOPPLER AV Peak Velocity 141.0 cm/s LVOT Peak Velocity 87.0 cm/s AV Area Cont Eq vti 3.7 cm squared AV Area Cont Eq pk 2.6 cm squared MV Peak Velocity 73.0 cm/s MV Area PHT 4.8 cm squared Mitral E to A Ratio 1.1 MV E' Velocity 72.0 cm/s TR Peak Velocity 67.0 cm/s TR Peak Gradient 1.8 mmHg Right Atrial Pressure 3.0 mmHg Pulmonary Artery Systolic Pressu 4.8 mmHg PV Peak Velocity 76.0 cm/s RV Acceleration Time 0.1 s RV Ejection Time 0.3 s RV AcT/ET 0.2 FINDINGS Left Ventricle Normal left ventricular size and systolic function, EF 55 %. No regional wall motion abnormalities. Right Ventricle The right ventricle is normal in size and function. Right Atrium The right atrium is normal in size. Left Atrium The left atrium is normal in size. Mitral Valve Trace mitral valve regurgitation. Aortic Valve No gross abnormalities noted Tricuspid Valve No gross abnormalities noted Pulmonic Valve Pulmonic valve not well visualized. Pericardium Normal pericardium without effusion. Aorta Normal ascending aorta dimension. CONCLUSIONS Normal left ventricular size and systolic function, EF 55 %. No regional wall motion abnormalities. Trace mitral valve regurgitation. Normal chamber sizes No significant stenotic or regurgitant lesions There is no pericardial effusion. Comparison with the previous study from 08/26/2017 is difficult because of the difference in technical quality. Possibly no significant change. Dr Rebel Mitchell MD FACC (Electronically Signed) Final Date: 19 Sep 2020 17:04 S
== END 2020-09-19 13:10 | disposition home or self-care (01) ==
PROVIDERS: PCP Internal Medicine; Visit Provider Internal Medicine Cardiovascular Disease
DX: I77.9 Disorder of arteries and arterioles, unspecified (principal); R07.89 Other chest pain; G45.9 Transient cerebral ischemic attack, unspecified; I34.0 Nonrheumatic mitral (valve) insufficiency
CPT/HCPCS: 93306; 93880

== ENCOUNTER → 2020-09-25 13:22 | Outpatient (BNVA) | payer MEDICAID, SELFPAY | PROVIDERS: PCP Nurse Practitioner; Visit Provider Internal Medicine Pulmonary Disease | DX: R06.02 Shortness of breath (principal); Z20.822 Contact with and (suspected) exposure to COVID-19 | CPT/HCPCS: 87635 ==

== ENCOUNTER → 2020-09-26 11:41 | Outpatient (BNVA) | payer MEDICAID, SELFPAY | PROVIDERS: PCP Nurse Practitioner; Visit Provider Nurse Practitioner | DX: E11.65 Type 2 diabetes mellitus with hyperglycemia (principal); Z79.4 Long term (current) use of insulin; E55.9 Vitamin D deficiency, unspecified; I69.30 Unspecified sequelae of cerebral infarction; I10 Essential (primary) hypertension | CPT/HCPCS: 80053; 82306; 82607; 83036; 84443 ==

== ENCOUNTER 2020-09-30 07:09 | Outpatient (CLI) | payer MEDICAID, SELFPAY ==
--- NOTE | 2020-09-30 09:17 | PFTS_ITS ---
Date of Study:09/30/20 Date of Dictation: MECHANICS: Forced vital capacity (FVC) is mildly reduced. Forced expiratory volume in one second (FEV1) is normal. FEV1/FVC is normal. FLOW VOLUME LOOP: Normal. LUNG VOLUMES: Not measured DIFFUSING CAPACITY FOR CARBON MONOXIDE: Normal INTERPRETATION: The prebronchodilator spirometry is consistent with moderate restriction. The postbronchodilator spirometry is consistent with minimal restriction. The patient has a significant postbronchodilator response. Gas exchange (DLCO) is normal. MTDD
== END 2020-09-30 07:10 | disposition home or self-care (01) ==
LOC: RT 07:12
PROVIDERS: PCP Nurse Practitioner; Visit Provider Internal Medicine Pulmonary Disease
DX: R06.02 Shortness of breath (principal)
CPT/HCPCS: 94060; 94729; J7611

== ENCOUNTER → 2020-10-15 08:02 | Outpatient (BNVA) | payer MEDICAID, SELFPAY | PROVIDERS: PCP Nurse Practitioner; Visit Provider Nurse Practitioner | DX: I69.398 Other sequelae of cerebral infarction (principal); H53.8 Other visual disturbances | CPT/HCPCS: 99204 ==

== ENCOUNTER → 2020-10-17 11:16 | Outpatient (BNVA) | payer MEDICAID, SELFPAY | PROVIDERS: PCP Nurse Practitioner; Visit Provider Nurse Practitioner Family | DX: E11.65 Type 2 diabetes mellitus with hyperglycemia (principal); R42 Dizziness and giddiness; Z79.4 Long term (current) use of insulin; R39.11 Hesitancy of micturition; M17.11 Unilateral primary osteoarthritis, right knee | CPT/HCPCS: 73562; 80053; 81003; 85025; 87077; 87086; 87184 ==

== ENCOUNTER 2020-11-05 14:31 | Outpatient (CLI) | payer MEDICAID, SELFPAY ==
--- NOTE | 2020-11-05 15:00 | US_ITS ---
WS: [id number] THYROID ULTRASOUND HISTORY: E03.8 - Other specified hypothyroidism COMPARISON: 01/25/2018 Right lobe: 1.6 cm x 1.6 cm x 5.3 cm (w x ap x l). Volume: 7.2 cm3. Very slightly enlarged RIGHT thyroid is similar to the prior study. Coarsened hepatic echotexture wit h no nodule. No increased vascularity. Left lobe: 1.1 cm x 1.3 cm x 4.2 cm (w x ap x l). Volume: 3.2 cm3. Coarsened echotexture. No nodules or increased vascularity. No adenopathy. Isthmus: 0.7 cm. Prominent isthmus similar to the prior study. US/US thyroid [id number] IMPRESSION: 1. Mildly enlarged heterogeneous RIGHT thyroid and isthmus consistent with goi ter most likely. 2. No suspicious thyroid nodules. 3. Thyroid ultrasound is very similar to the prior study from 01/25/2018.
== END 2020-11-05 14:32 | disposition home or self-care (01) ==
LOC: RAD 14:34
PROVIDERS: PCP Family Medicine; Visit Provider Nurse Practitioner
DX: E03.8 Other specified hypothyroidism (principal); E04.9 Nontoxic goiter, unspecified
CPT/HCPCS: 76536

== ENCOUNTER 2020-11-14 12:23 | Outpatient (CLI) | payer MEDICAID, SELFPAY ==
[2020-11-14 13:01] LABS: Basophils # 0.1 10^3/uL (0.0-0.1); Basophils % 0.7 %; Eosinophils # 0.3 10^3/uL (0.0-0.8); Eosinophils % 3.7 %; Hematocrit 38.1 % (37.0-47.0); Hemoglobin 12.4 g/dL (11.5-15.3); Lymphocytes # 1.4 10^3/uL (0.8-4.8); Lymphocytes % 15.5 %; Mean Corpuscular HGB Conc 32.5 g/dL (30.0-36.0); Mean Corpuscular Hemoglobin 30.2 pg (28.0-34.0); Mean Corpuscular Volume 92.9 fL (81-99); Mean Platelet Volume 9.9 fL (7.4-10.4); Monocytes # 0.6 10^3/uL (0.2-0.9); Monocytes % 6.9 %; Neutrophils # 6.43 10^3/uL (1.8-7.7); Nucleated Red Blood Cells % 0 %; Platelet Count 389 10^3/cmm (130-400); Red Cell Distribution Width 11.9 % (12.1-15.1); White Blood Count 8.8 10^3/uL (4.0-10.0)
[2020-11-14 13:17] LABS: Alanine Aminotransferase 10 U/L (0-33); Albumin Level 3.7 g/dL (3.5-5.2); Alkaline Phosphatase 83 IU/L (35-105); Anion Gap 15.4 (5-19); Aspartate Amino Transferase 14 U/L (0-32); Blood Urea Nitrogen 17 mg/dL (8-23); C Reactive Protein 16.7 mg/L (0.0-4.9); Calcium 8.6 mg/dL (8.5-10.5); Carbon Dioxide 26 mmol/L (22-29); Chloride 102 mmol/L (98-107); Cholesterol 128 mg/dL (0-200); Globulin 3.5 g/dL (1.3-4.6); Glomerular Filtration Rate 72.7 mL/min (90-130); Glucose 112 mg/dL (65-115); Osmolality Calculated 290 mOsm/kg (285-295); Potassium 4.4 mmol/L (3.5-5.1); Sodium 139 mmol/L (136-145); Total Bilirubin 0.5 mg/dL (0.15-1.2); Total Protein 7.2 g/dL (6.6-8.7)
[2020-11-14 14:00] LABS: Erythrocyte Sedimentation Rate 58 mm/hr (0-15)
[2020-11-20 09:21] LABS: Alternaria Alternata (M6) Ige <0.10 kU/L; Alternaria Class 0; Anti-Double Strand DNA AB 2 IU/mL; Bermuda Class 0/1; Bermuda Grass (G2) Ige 0.32 kU/L; Cat Dander (E1) Ige 0.45 kU/L; Cat Dander Class 1; Centromere B Antibody <1.0 NEG AI (<1.0 NEG); Common Ragweed (Short) (W1) Ig 0.25 kU/L; Cyclic Citrullinated Peptide <16 UNITS; D. Farinae Class 0/1; Dermatophagoides Class 0/1; Dermatophagoides Farinae (D2) 0.15 kU/L; Dermatophagoides Pteronyssinus 0.15 kU/L; Dog Dander (E5) Ige 1.22 kU/L; Dog Dander Class 2; Elm (T8) Ige 0.41 kU/L; Elm Class 1; English Plantain (W9) Ige 0.37 kU/L; English Plantain Class 1; House Dust (Greer) (H1) Ige 0.41 kU/L; House Dust (Hollister- Stier) 0.56 kU/L; House Dust Class 1; Immunoglobulin E 3809 kU/L (<OR=114); Immunoglobulin E 3836 kU/L (<OR=114); JO-1 Antibody <1.0 NEG AI (<1.0 NEG); Johnson Grass (G10) Ige 0.41 kU/L; Johnson Grass Cl 1; June Grass Class 1; June Grass(Kentucky Blue) (G8) 0.54 kU/L; Lamb'S Quarters (Goose Foot) 0.69 kU/L; Lamb'S Quarters Class 1; Maple (Box Elder) (T1) Ige 0.54 kU/L; Maple Class 1; Meadow Fescue (G4) Ige 0.62 kU/L; Meadow Fescue Class 1; Mucor Racemosus Class 0/1; Oak (T7) Ige 0.41 kU/L; Oak Class 1; Orchard Grass (Cocksfoot) (G3) 0.47 kU/L; Penicillium Class 0; Penicillium Notatum (M1) Ige <0.10 kU/L; Perennial Rye Grass Class 2; Ragweeed Class 0/1; Rough Marsh Elder (W16) Ige 0.46 kU/L; Rough Marsh Elder Class 1; SCL 70 <1.0 NEG AI (<1.0 NEG); SS A Ro Sjogrens Antibody <1.0 NEG AI (<1.0 NEG); SS-B/LA IGG <1.0 NEG AI (<1.0 NEG); Sm/RNP Antibody <1.0 NEG AI (<1.0 NEG); Smith Antibody <1.0 NEG AI (<1.0 NEG); Sweet Vernal Class 1; Sweet Vernal Grass (G1) Ige 0.51 kU/L; Timothy Grass (G6) Ige 0.47 kU/L; Timothy Grass Class 1
[2020-11-20 09:22] LABS: Anti-Nuclear Antibody Screen NEGATIVE (NEGATIVE)
== END 2020-11-14 12:24 | disposition home or self-care (01) ==
PROVIDERS: Internal Medicine Pulmonary Disease; PCP Family Medicine; Visit Provider Emergency Medicine
DX: M25.541 Pain in joints of right hand (principal); M25.542 Pain in joints of left hand; M79.89 Other specified soft tissue disorders; R06.02 Shortness of breath; J30.89 Other allergic rhinitis; I69.30 Unspecified sequelae of cerebral infarction
CPT/HCPCS: 36415; 80053; 82465; 82785; 85025; 85651; 86003; 86038; 86140; 86225; 86235; 86431; 87635

== ENCOUNTER → 2020-12-15 14:10 | Outpatient (BNVA) | payer MEDICAID, SELFPAY | PROVIDERS: PCP Nurse Practitioner; Visit Provider Nurse Practitioner | DX: E11.65 Type 2 diabetes mellitus with hyperglycemia (principal); Z79.4 Long term (current) use of insulin; E55.9 Vitamin D deficiency, unspecified; E03.8 Other specified hypothyroidism | CPT/HCPCS: 80053; 80061; 82306; 83036; 84443 ==

== ENCOUNTER 2020-12-16 14:48 | Outpatient (CLI) | payer MEDICAID, SELFPAY ==
--- NOTE | 2020-12-16 14:54 | CT_ITS ---
WS: [id number] CT scan of the neck. Additional two-dimensional coronal and sagittal reconstruction was performed. 12/16/2020 Clinical Data: LOCALIZED SWELLING MASS AND OR LUMP NECK Comparison: None. DLP: 1747.[address] scans at [facility] use at least one of these dose optimization techniques: automat ed exposure control; mA and/or kV adjustment per patient size (includes targeted exams where dose is matched to clinical indication); or iterative reconstruction. Findings: There is bilateral lymphadenopathy throughout the neck. The largest node measures 1.2 cm. The salivar y glands are unremarkable. There is no prevertebral soft tissue swelling. The larynx is symmetric. Th e thyroid gland appears normal. The floor of the mouth and parapharyngeal spaces are normal. The oral cavity is unremarkable. There is osteoarthritic change of the cervical spine but there is no prevertebral soft tissue swellin g. The lung apices show no abnormalities. The skull base is intact. The mastoid air cells, internal a uditory canals, paranasal sinuses and intraorbital contents are not remarkable. The sella turcica is normal. CT/CT neck wo con [id number] Impression: 1. Extensive lymphadenopathy 2. Negative for masses of the neck.
== END 2020-12-16 14:49 | disposition home or self-care (01) ==
PROVIDERS: PCP Nurse Practitioner; Visit Provider Specialist
DX: R22.1 Localized swelling, mass and lump, neck (principal)
CPT/HCPCS: 70490

== ENCOUNTER → 2020-12-23 16:03 | Outpatient (BNVA) | payer MEDICAID, SELFPAY | PROVIDERS: PCP Nurse Practitioner; Visit Provider Nurse Practitioner | DX: Z20.822 Contact with and (suspected) exposure to COVID-19 (principal); E11.65 Type 2 diabetes mellitus with hyperglycemia; Z79.4 Long term (current) use of insulin; E03.8 Other specified hypothyroidism; I10 Essential (primary) hypertension; E55.9 Vitamin D deficiency, unspecified | CPT/HCPCS: 87635 ==

== ENCOUNTER → 2021-01-13 10:56 | Outpatient (BNVA) | payer MEDICAID, SELFPAY | PROVIDERS: PCP Nurse Practitioner; Visit Provider Internal Medicine | DX: R13.10 Dysphagia, unspecified (principal); R94.6 Abnormal results of thyroid function studies; E03.8 Other specified hypothyroidism; I10 Essential (primary) hypertension | CPT/HCPCS: 83516; 84439; 86376 ==

== ENCOUNTER → 2021-03-16 14:44 | Outpatient (BNVA) | payer MEDICAID, SELFPAY | PROVIDERS: PCP Nurse Practitioner; Visit Provider Internal Medicine | DX: E11.65 Type 2 diabetes mellitus with hyperglycemia (principal); Z79.4 Long term (current) use of insulin; E03.8 Other specified hypothyroidism | CPT/HCPCS: 36415; 84439; 84443 ==

== ENCOUNTER → 2021-03-17 08:21 | Outpatient (BNVA) | payer MEDICAID, SELFPAY | PROVIDERS: PCP Nurse Practitioner; Visit Provider Nurse Practitioner | DX: E11.65 Type 2 diabetes mellitus with hyperglycemia (principal); Z79.4 Long term (current) use of insulin | CPT/HCPCS: 80053; 80061 ==

== ENCOUNTER → 2021-04-03 10:36 | Outpatient (BNVA) | payer MEDICAID, SELFPAY | PROVIDERS: PCP Nurse Practitioner; Visit Provider Nurse Practitioner | DX: R05.9 Cough, unspecified (principal); Z20.822 Contact with and (suspected) exposure to COVID-19 | CPT/HCPCS: 87400; 87635 ==

== ENCOUNTER 2021-04-13 16:04 | Emergency (ER) | payer MEDICAID, SELFPAY ==
[2021-04-13 16:40] VITALS: BP 112/79; PULSE 99; RESP 18; TEMP 36.4; O2SAT 93; BMI 41.3
--- NOTE | 2021-04-13 17:40 | XRR_ITS ---
PROCEDURE INFORMATION: Exam: XR Chest Exam date and time: 04/13/2021 5:40 PM Age: 60 years old Clinical indication: Shortness of breath; Additional info: Covid+ TECHNIQUE: Imaging protocol: XR of the chest. Views: 1 view. COMPARISON: CR XR chest 1V portable [id number] 09/08/2020 7:12 PM FINDINGS: Lungs: Left mid to lower lung field airspace infiltrate. Pleural spaces: Unremarkable. No pleural effusion. No pneumothorax. Heart/Mediastinum: Unremarkable. No cardiomegaly. Bones/joints: Unremarkable. XR/XR chest 1V portable [id number] IMPRESSION: Left mid to lower lung field airspace infiltrate. Radiation Dose CTDIVOL = (mGy): DLP = (mGy-cm)
--- NOTE | 2021-04-13 17:40 | ECG_ITS ---
[facility] Test Date: 2021-04-13 Pat Name: Angelica Acevedo Department: Room: Gender: Female Java Sdet: : 1960 Requested By: Sunny Brown Order Number: [id number] Shayy MD: Linda Mcpherson M.D. Measurements Intervals [place] Rate: 97 P: 20 ID: [id number] QRS: -42 QRSD: 103 T: 64 QT: 361 QTc: 459 Interpretive Statements SINUS RHYTHM LEFT AXIS DEVIATION [QRS AXIS < -30] PATTERN CONSISTENT WITH PULMONARY DISEASE VOLTAGE CRITERIA FOR LVH [MEETS CRITERIA IN ONE OF: R(aVL), S(V1), R(V5), R(V5/V6)+S(V1)] Compared to ECG 09/08/2020 19:36:10 No significant changes Electronically Signed On 04-14-2021 17:58:18 APPLIANCE REPAIR TECHNICIAN by Linda Mcpherson M.D. [email or web address]
--- NOTE | 2021-04-13 17:52 | CTR_ITS ---
PROCEDURE INFORMATION: Exam: CTA Chest With Contrast Exam date and time: 04/13/2021 5:52 PM Age: 60 years old Clinical indication: Shortness of breath; Prior surgery; Surgery type: Stents; Additional info: Eval blod clots per pcp TECHNIQUE: Imaging protocol: Computed tomographic angiography of the chest with contrast. 3D rendering (Not supervised by radiologist): MIP and/or 3D reconstructed images were created by the technologist. Radiation optimization: All CT scans at this facility use at least one of these dose optimization techniques: automated exposure control; mA and/or kV adjustment per patient size (includes targeted exams where dose is matched to clinical indication); or iterative reconstruction. Contrast material: OMNI 350; Contrast volume: 72 ml; Contrast route: INTRAVENOUS (IV); COMPARISON: CTA Chest-Pulmonary Emb [id number] 08/26/2017 1:38 AM RADIATION DOSE METRICS: Total DLP (mGy-cm): 541.7 FINDINGS: Pulmonary arteries: Normal. No pulmonary emboli. Aorta: Unremarkable. No aortic aneurysm. No aortic dissection. Lungs: Bilateral left greater than right airspace infiltrates. Pleural spaces: Unremarkable. No pneumothorax. No pleural effusion. Heart: Coronary artery atherosclerotic calcifications. Lymph nodes: Unremarkable. No enlarged lymph nodes. Liver: Hepatic steatosis. Gallbladder and bile ducts: Cholelithiasis suspected. Bones/joints: Unremarkable. No acute fracture. Soft tissues: Unremarkable. CT/CT angio chest PE protcl [id number] IMPRESSION: 1. Negative for pulmonary embolus. 2. Coronary artery atherosclerotic calcifications. 3. Bilateral left greater than right airspace infiltrates. 4. Hepatic steatosis. 5. Cholelithiasis suspected. Radiation Dose CTDIVOL = (mGy): DLP = 541.7 (mGy-cm)
--- NOTE | 2021-04-13 18:43 | ED_ITS ---
HPI - General Adult General: Chief complaint: COVID symptoms Stated complaint: PCP SENT OVER TO TEST FOR BLOOD CLOT IN LUNGS Time Seen by Provider: 04/13/21 17:47 History of Present Illness: HPI narrative: CC: Generalized weakness, fatigue, diarrhea, nausea/vomiting HPI: This is a [60] yo patient w/presenting to the ED with malaise, generalized weakness , decreased appetite, nausea/vomiting, and occasional dyspnea x 5 days days. Patient was positive for Covid 10 days ago. Patient was told to come to the emergency room to evaluate for blood clots by patient's primary care provider. Patient denies hemoptysis, pleuritic chest pain, leg swelling, recent immobilization or surgery. Onset: 10 days ago Duration: ongoing for the last 10 days Location: home Severity: mild/moderate Review of Systems Narrative: Constitutional: +subjective fever, +generalized weakness HEENT: No vision changes CV: No chest pain, no palpitations PULM: cough, +dyspnea. GI: No abdominal pain, +N/+V/+D. +decreased appetite : No dysuria MSKEL: No muscle pain SKIN: No new rashes, no lesions. NEURO: No headache, no focal weakness. HEME: No visible bruises PSYCH: Normal mood PFSH ED PFSH: Medical History Adult onset hypothyroidism Chronic diastolic heart failure secondary to coronary artery disease Coronary artery disease The EKG on 08/30/2020 revealed sinus rhythm with a left axis deviation. LVH. No acute ST-T changes. Daytime sleepiness Diabetes mellitus with hyperglycemia, with long-term current use of insulin History of CVA with residual deficit Left side weakness 08/22/20 Hyperlipidemia Hypertension Multiple environmental allergies Umbilical hernia Surgical History History of carpal tunnel surgery Right History of heart artery stent History of shoulder surgery Left Family History Father Anesthesia complication Clotting disorder CAD (coronary artery disease) Dementia Mother Clotting disorder CAD (coronary artery disease) Diabetes Brother Clotting disorder Other Hyperlipidemia Hypertension Denies family history of Chronic kidney disease (CKD) Suicide Bleeding disorder Lung disease Cancer Stroke Social History Second hand smoke exposure: No Smoking risk assessment/counseling performed?: Yes Alcohol intake: never Desire information about alcohol rehabilitation?: No Counseling given: No Desire information about substance/drug rehabilitation?: No Counseling given: No Adopted: No Caregiver/support person: No Lives independently: Yes Household members: none Housing: House Marital status: Number of children: 0 service: No Current occupational status: retired and disabled Pets and animals: Yes History of recent travel: No Current gender identity: Female Physical Exam Narrative: EXAM NARRATIVE: Head: Atraumatic Eyes: PERRL, conjunctiva without injection ENT: Mucous membrane moist NECK: Supple without lymphadenopathy LUNGS: Coarse lung sounds, no crackles/wheezes/rhonchi on exam CV: RRR ABDOMEN: Soft, nontender EXTREMITY: Normal ROM SKIN: No rash or erythema NEURO: Awake and alert. No focal motor deficits. PSYCH: Normal mood and affect. Course Vital Signs: Vital signs: Vital Signs Temperature 98.1 F 04/13/21 18:53 Pulse Rate 94 04/13/21 18:53 Respiratory Rate 21 H 04/13/21 18:53 Blood Pressure 120/76 04/13/21 18:53 Pulse Oximetry 99 04/13/21 18:53 MDM - General Adult MDM Narrative: Medical decision making narrative: [60]yo patient presenting to the ED with shortness of breath, cough, and malaise concerning for COVID. Given History, Exam, and Workup presentation most consistent with pneumonia.Presentation not consistent with PE, COPD exacerbation, Pneumothorax, TB, Atypical ACS, Esophageal Rupture, Toxic Exposure, Foreign Body Airway Obstruction. Workup: labs, XR chest, and CTA chest (per request of PCP) Intervention: Tylenol 1gram, PO challenge, serial reassessment [8:00pm] On reassessment, XR with possible l sided airspace consolidation. CTA chest showed similar findings. Negative PE on CTA. Given concern for superimposed focal L sided PNA, patient will be discharged with antibiotics. Patient symptomatically improved after IVF and GI cocktail. Patient is able to tolerate p.o. without any difficulty. Signs of dehydration currently. No signs of increased work of breathing. Patient was found to have requirements at baseline of 2 L of home oxygen. Patient will be discharged home with portable oxygen tank as well as pulse ox with instruction on how to use. Rx: Tylenol 500mg Q6HRs PRN fever/pain, doxycycline 100mg BID x 5 days, a ugmentin BID x 5 days for complicated PNA Disposition: Discharge. Strict return instructions discussed at bedside including any signs of respiratory distress, dehydration, persistent fever, or any new or concerning symptoms. Patient in agreement with the plan and reassures me that the patient will follow up a primary care provider in 24-48 hrs for revaluation. Imaging Data^: Other Imaging: Radiologist's impression: [employer] [id number] Scan ReportSigned Patient: Emilee Acevedo #: [id number]: 1960cct#:[id number]/Sex: 60 / FADM Date: 04/13/21Loc: ERRoom/Bed:Attending Dr: Ordering Provider/Ordering MD: Vj Wilder MD Date of Service: 04/13/21 Procedure(s): CT angio chest PE protcl [id number] Accession Number(s): [id number] Report Number: [id number] PROCEDURE INFORMATION: Exam: CTA Chest With Contrast Exam date and time: 04/13/2021 5:52 PM Age: 60 years old Clinical indication: Shortness of breath; Prior surgery; Surgery type: Stents; Additional info: Eval blod clots per pcp TECHNIQUE: Imaging protocol: Computed tomographic angiography of the chest with contrast. 3D rendering (Not supervised by radiologist): MIP and/or 3D reconstructed images were created by the technologist. Radiation optimization: All CT scans at this facility use at least one of these dose optimization techniques: automated exposure control; mA and/or kV adjustment per patient size (includes targeted exams where dose is matched to clinical indication); or iterative reconstruction. Contrast material: OMNI 350; Contrast volume: 72 ml; Contrast route: INTRAVENOUS (IV); COMPARISON: CTA Chest-Pulmonary Emb [id number] 08/26/2017 1:38 AM RADIATION DOSE METRICS: Total DLP (mGy-cm): 541.7 FINDINGS: Pulmonary arteries: Normal. No pulmonary emboli. Aorta: Unremarkable. No aortic aneurysm. No aortic dissection. Lungs: Bilateral left greater than right airspace infiltrates. Pleural spaces: Unremarkable. No pneumothorax. No pleural effusion. Heart: Coronary artery atherosclerotic calcifications. Lymph nodes: Unremarkable. No enlarged lymph nodes. Liver: Hepatic steatosis. Gallbladder and bile ducts: Cholelithiasis suspected. Bones/joints: Unremarkable. No acute fracture. Soft tissues: Unremarkable. CT/CT angio chest PE protcl [id number] IMPRESSION: 1. Negative for pulmonary embolus. 2. Coronary artery atherosclerotic calcifications. 3. Bilateral left greater than right airspace infiltrates. 4. Hepatic steatosis. 5. Cholelithiasis suspected. Radiation Dose CTDIVOL = (mGy): DLP = 541.7 (mGy-cm) Dictated By:Jude Bowles MDSigned By:Jude Bowles MDSigned Date/Time:04/13/211925DD/ [address] [address]ERhb ReportSigned Patient: Emilee Acevedo #: [id number]: 1960cct#:[id number]/Sex: 60 / FADM Date: 04/13/21Loc: ERRoom/Bed:Attending Dr: Ordering Provider/Ordering MD: Sunny Erazo NP Date of Service: 04/13/21 Procedure(s): XR chest 1V portable [id number] Accession Number(s): [id number] Report Number: [id number] PROCEDURE INFORMATION: Exam: XR Chest Exam date and time: 04/13/2021 5:40 PM Age: 60 years old Clinical indication: Shortness of breath; Additional info: Covid+ TECHNIQUE: Imaging protocol: XR of the chest. Views: 1 view. COMPARISON: CR XR chest 1V portable [id number] 09/08/2020 7:12 PM FINDINGS: Lungs: Left mid to lower lung field airspace infiltrate. Pleural spaces: Unremarkable. No pleural effusion. No pneumothorax. Heart/Mediastinum: Unremarkable. No cardiomegaly. Bones/joints: Unremarkable. XR/XR chest 1V portable [id number] IMPRESSION: Left mid to lower lung field airspace infiltrate. Radiation Dose CTDIVOL = (mGy): DLP = (mGy-cm) Dictated By:Jude Bowles MDSigned By:Jude Bowles MDSigned Date/Time:04/13/211818DD/ 39 Discharge Plan Discharge Patient Disposition: Home Clinical Impression: Generalized weakness, Fatigue, Malaise, Diarrhea, Nausea, COVID, Pneumonia Condition: Stable Prescriptions: New Zofran 4 mg tablet 4 mg PO TID PRN (Reason: nausea and vomiting) 4 Days Qty: 12 RF: 0 Augmentin 875-125 mg tablet 1 tab PO Q12H 5 Days Qty: 10 RF: 0 acetaminophen 500 mg tablet 500 mg PO Q6H PRN (Reason: pain) 5 Days Qty: 20 RF: 0 doxycycline hyclate 100 mg capsule 100 mg PO BID 5 Days Qty: 10 RF: 0 No Action (DME) Diabetic shoes with 3 inserts See Rx Instructions .ROUTE .MEDSUPPLY Qty: 1 RF: 0 (DME) pen needle, diabetic 33 gauge x 5/32 needle See Rx Instructions .ROUTE .MEDSUPPLY Qty: 100 RF: 2 atorvastatin [Lipitor] 40 mg tablet 40 mg PO DAILY Qty: 30 RF: 2 ergocalciferol (vitamin D2) 1,250 mcg (50,000 unit) capsule 1,250 mcg PO .weekly Qty: 4 RF: 2 furosemide [Lasix] 20 mg tablet 20 mg PO QAM PRN (Reason: edema) Qty: 30 RF: 2 levothyroxine 100 mcg tablet 100 mcg PO DAILY@0700 Qty: 30 RF: 2 Victoza 3-Johnny 0.6 mg/0.1 mL (18 mg/3 mL) pen injector 1.2 mg SUBCUT DAILY Qty: 9 RF: 2 valsartan [Diovan] 160 mg tablet 160 mg PO DAILY Qty: 30 RF: 2 metoprolol tartrate 25 mg tablet 25 mg PO BID 30 Days Qty: 60 RF: 5 albuterol sulfate 90 mcg/actuation HFA aerosol inhaler 2 puff inhalation Q6H PRN (Reason: shortness of breath or wheezing) Qty: 8.5 RF: 3 cholecalciferol (vitamin D3) 125 mcg (5,000 unit) capsule 125 mcg PO .Q7days RF: 0 promethazine-DM 6.25-15 mg/5 mL syrup 5 ml PO Q6H Qty: 120 RF: 0 albuterol sulfate 2.5 mg /3 mL (0.083 %) solution for nebulization 2.5 mg inhalation Q4H PRN (Reason: shortness of breath or wheezing) Qty: 75 RF: 2 nitroglycerin [Nitrostat] 0.4 mg tablet, sublingual 0.4 mg sublingual Q5M PRN (Reason: chest pain) Qty: 25 RF: 3 Aspir-81 81 mg Tablet,Delayed Release (Dr/Ec) 81 mg PO DAILY@2200 RF: 0 isosorbide mononitrate 30 mg tablet extended release 24 hr 30 mg PO BID@0700,2200 RF: 0 Discharge Orders: Discharge ED (Routine); Ordered 04/13/21 Ordered By: Vj Wilder Other Ambulatory Orders: DME: Oxygen (Order) Location: None Selected Ordered By: Vj Wilder Referrals: Marlon Wagoner FNP-C [Primary Care Provider] - Discharge Diet: Advance as tolerated Discharge Activity: Resume usual activity Patient Instructions: COVID-19 (Coronavirus Disease 2019) (ED) Activity Restrictions/Additional Instructions: Come back to the emergency room if your symptoms worsen, have any shortness of breath, fever/chills, dehydration, inability tolerate p.o., any difficulty breathing, or any new or concerning complaints. Coding Level of Care Code ED Embossing Unit Operator for Philip Alexandre
[2021-04-13] MEDS: diphenhydrAMINE 50 mg/mL SDV 1mL IVP (18:48)
[2021-04-13 18:53] VITALS: BP 120/76; PULSE 94; RESP 21; TEMP 36.7; O2SAT 94; O2SAT 99
[2021-04-13] MEDS: iohexol 350 mg/mL 100 mL Btl IV (19:18)
[2021-04-13] MEDS: sodium chloride 0.9% 1,000 ML 999 ML IV (19:20)
[2021-04-13] MEDS: ondansetron 2 mg/ML SDV 2 mL 4 MG IVP (19:21)
[2021-04-13 20:42] LABS: Hematocrit 44.7 % (37.0-47.0); Hemoglobin 14.8 g/dL (11.5-15.3); Mean Corpuscular HGB Conc 33.1 g/dL (30.0-36.0); Mean Corpuscular Hemoglobin 29.2 pg (28.0-34.0); Mean Corpuscular Volume 88.3 fl (81-99); Mean Platelet Volume 11.5 fL (7.4-10.4); Platelet Count 258 10^3/cmm (130-400); Red Blood Count 5.06 10^6/uL (4.1-5.3)
[2021-04-13 21:05] LABS: Troponin T (5th) Once 19 ng/L (0-10)
[2021-04-13 21:07] LABS: Alanine Aminotransferase 7 U/L (0-33); Albumin Level 3.5 g/dL (3.5-5.2); Alkaline Phosphatase 59 IU/L (35-105); Aspartate Amino Transferase 15 U/L (0-32); Blood Urea Nitrogen 43 mg/dL (8-23); C Reactive Protein 76.5 mg/L (0.0-4.9); Calcium 7.8 mg/dL (8.5-10.5); Carbon Dioxide 20 mmol/L (22-29); Chloride 95 mmol/L (98-107); Creatine Phosphokinase 52 U/L (26-192); Glomerular Filtration Rate 38.1 mL/min (90-130); Glucose 138 mg/dL (65-115); Osmolality Calculated 289 mOsm/kg (285-295); Sodium 133 mmol/L (136-145); Total Bilirubin 0.9 mg/dL (0.15-1.2); Total Protein 6.5 g/dL (6.6-8.7)
[2021-04-13 21:09] LABS: Anion Gap 21.8 (5-19); Potassium 3.8 mmol/L (3.5-5.1)
[2021-04-13 21:10] LABS: Band Neutrophils Absolute 0.2 10^3/cmm (0.0-1.2); Lymphocytes 6 %; Monocytes Absolute 0.3 10^3/cmm (0.1-0.6); Segmented Neutrophils 80 %; Total Cells Counted 100 (0-100)
[2021-04-13 21:11] LABS: Absolute Neutrophil 4.2 10^3/cmm (1.4-6.5); Eosinophils 0 %; Lymphocytes Absolute 0.6 10^3/cmm (1.2-3.4); Platelet Estimate Normal (Normal)
[2021-04-13 21:17] VITALS: PULSE 92; RESP 20
== END 2021-04-13 21:21 | disposition home or self-care (01) ==
PROVIDERS: Nurse Practitioner Family; Emergency Provider Emergency Medicine; PCP Nurse Practitioner
DX: R53.1 Weakness (principal); R53.83 Other fatigue; R53.81 Other malaise; R19.7 Diarrhea, unspecified; R11.0 Nausea; U07.1 COVID-19; J18.9 Pneumonia, unspecified organism; J44.9 Chronic obstructive pulmonary disease, unspecified; E11.9 Type 2 diabetes mellitus without complications; Z79.4 Long term (current) use of insulin
CPT/HCPCS: 71045; 71275; 80048; 80053; 82550; 84484; 85007; 85025; 86140; 93005; 96361; 96374; 96375; 99284; J1200; J2405; J2930; J7030; Q9967

== ENCOUNTER 2021-05-12 10:14 | Outpatient (CLI) | payer MEDICAID, SELFPAY ==
--- NOTE | 2021-05-12 10:20 | XR_ITS ---
WS: [id number] Chest 2 views, 05/12/2021 Clinical Data: followup COVID Comparison: Orbital chest, 04/13/2021. Findings: No nodules, masses or effusions are seen. The heart is normal. The pulmonary vascularity is not increased. No pneumothorax is seen. There is minimal patchy opacity in the periphery of the left lung but there is great improvement compared to the prior x-ray. The aortic arch and descending thor acic aorta show tortuosity. There are 4 orthopedic anchors in the left humeral head. XR/XR chest 2V* [id number] Impression: Minimal patchy opacity in periphery of the left lung which is a marked improvem ent from before.
== END 2021-05-12 10:15 | disposition home or self-care (01) ==
PROVIDERS: PCP Family Medicine Adult Medicine; Visit Provider Family Medicine Adult Medicine
DX: U07.1 COVID-19 (principal)
CPT/HCPCS: 71046; 80061; 83036

== ENCOUNTER 2021-07-17 09:52 | Outpatient (CLI) | payer MEDICAID, SELFPAY ==
[2021-07-17 10:39] LABS: Estmated Average Glucose 131; Hemoglobin A1C 6.2 % (4.0-6.0)
[2021-07-17 11:09] LABS: Alanine Aminotransferase 13 U/L (0-33); Alkaline Phosphatase 93 IU/L (35-105); Anion Gap 15.3 (5-19); Aspartate Amino Transferase 24 U/L (0-32); Blood Urea Nitrogen 19 mg/dL (8-23); Calcium 9.4 mg/dL (8.5-10.5); Carbon Dioxide 28 mmol/L (22-29); Chloride 102 mmol/L (98-107); Chol HDL Ratio 4.87 mg/dL (0.0-4.40); Cholesterol 253 mg/dL (0-200); Globulin 3.8 g/dL (1.3-4.6); Glomerular Filtration Rate 84.5 mL/min (90-130); Glucose 119 mg/dL (65-115); HDL Cholesterol 52 mg/dL (60-100); LDL Cholesterol Calculated 166 mg/dL (50-129); LDL HDL Ratio 3.19 RATIO (0.00-3.22); Osmolality Calculated 293 mOsm/kg (285-295); Potassium 5.3 mmol/L (3.5-5.1); Sodium 140 mmol/L (136-145); Thyroid Stimulating Hormone 1.86 uIU/mL (0.27-4.20); Total Bilirubin 0.4 mg/dL (0.15-1.2); Total Protein 7.8 g/dL (6.6-8.7); Triglycerides 176 mg/dL (0-150)
[2021-07-17 11:25] LABS: 25 Hydroxy Vitamin D > 100 ng/mL (30-100)
[2021-07-17 11:32] LABS: Free T4 Free Thyroxine 1.35 ng/dL (0.82-1.77)
== END 2021-07-17 09:53 | disposition home or self-care (01) ==
PROVIDERS: Nurse Practitioner; PCP Family Medicine Adult Medicine; Referring Provider Internal Medicine; Visit Provider Family Medicine Adult Medicine
DX: E55.9 Vitamin D deficiency, unspecified (principal); E03.8 Other specified hypothyroidism; E78.5 Hyperlipidemia, unspecified; E11.65 Type 2 diabetes mellitus with hyperglycemia; Z79.4 Long term (current) use of insulin
CPT/HCPCS: 36415; 80053; 80061; 82306; 83036; 84439; 84443

== ENCOUNTER → 2021-08-31 11:30 | Outpatient (BNVA) | payer MEDICAID, SELFPAY | PROVIDERS: PCP Family Medicine Adult Medicine; Visit Provider Internal Medicine Cardiovascular Disease | DX: I25.118 Atherosclerotic heart disease of native coronary artery with other forms of angina pectoris (principal); I11.0 Hypertensive heart disease with heart failure; I50.32 Chronic diastolic (congestive) heart failure; E11.65 Type 2 diabetes mellitus with hyperglycemia; Z79.4 Long term (current) use of insulin; E78.2 Mixed hyperlipidemia; Z95.5 Presence of coronary angioplasty implant and graft; Z79.82 Long term (current) use of aspirin; M25.561 Pain in right knee | CPT/HCPCS: 73562; 99214 ==

== ENCOUNTER → 2021-09-18 10:53 | Outpatient (BNVA) | payer MEDICAID, SELFPAY | PROVIDERS: PCP Family Medicine Adult Medicine; Visit Provider Internal Medicine | DX: E11.65 Type 2 diabetes mellitus with hyperglycemia (principal); E11.69 Type 2 diabetes mellitus with other specified complication; E78.2 Mixed hyperlipidemia; R13.10 Dysphagia, unspecified; E01.0 Iodine-deficiency related diffuse (endemic) goiter; Z79.899 Other long term (current) drug therapy | CPT/HCPCS: 99214 ==

== ENCOUNTER → 2021-10-19 09:31 | Outpatient (BNVA) | payer MEDICAID, SELFPAY | PROVIDERS: PCP Family Medicine Adult Medicine; Visit Provider Internal Medicine Pulmonary Disease | DX: R06.02 Shortness of breath (principal); I50.32 Chronic diastolic (congestive) heart failure; I25.10 Atherosclerotic heart disease of native coronary artery without angina pectoris; Z95.5 Presence of coronary angioplasty implant and graft; R40.0 Somnolence; J45.909 Unspecified asthma, uncomplicated; E78.5 Hyperlipidemia, unspecified; I10 Essential (primary) hypertension | CPT/HCPCS: 71046; 99214 ==

== ENCOUNTER 2021-10-29 08:01 | Outpatient (CLI) | payer MEDICAID, SELFPAY ==
--- NOTE | 2021-10-29 08:00 | US_ITS ---
WS: [id number] THYROID ULTRASOUND HISTORY: History of Rufina's. Follow-up. COMPARISON: 11/05/2020 Right lobe: 1.6 cm x 1.4 cm x 4.2 cm (w x ap x l). Volume: 5.1 cm3. Heterogeneous lobular gland without a discrete nodule. No increased vascularity. Left lobe: 1.5 cm x 1.2 cm x 4.1 cm (w x ap x l). Volume: 3.8 cm3. Heterogeneous nodular thyroid lobe without a discrete nodule. Similar to the prior study. No increase d vascularity. Isthmus: 0.5 cm. Small LEFT submandibular region lymph nodes. US/US thyroid [id number] IMPRESSION: 1. Heterogeneous thyroid without discrete nodule. No increased vascularity. Co nsistent with patient's history of Rufina's.
[2021-10-29 09:36] LABS: D Dimer 0.43 ug/mIFEU (0-0.59)
== END 2021-10-29 08:02 | disposition home or self-care (01) ==
LOC: RAD 08:04
PROVIDERS: PCP Family Medicine Adult Medicine; Referring Provider Internal Medicine Pulmonary Disease; Visit Provider Internal Medicine
DX: R07.81 Pleurodynia (principal); E11.65 Type 2 diabetes mellitus with hyperglycemia; E03.8 Other specified hypothyroidism; Z79.4 Long term (current) use of insulin; E78.5 Hyperlipidemia, unspecified
CPT/HCPCS: 76536; 85378

== ENCOUNTER 2021-12-26 14:30 | Emergency (ER) | payer MEDICAID, SELFPAY ==
[2021-12-26 14:36] VITALS: BP 193/66; PULSE 64; RESP 16; TEMP 36.2; O2SAT 98
[2021-12-26 14:41] VITALS: BP 193/66; PULSE 64; RESP 16; TEMP 36.2; O2SAT 98
--- NOTE | 2021-12-26 14:42 | W.ED.DENTAL ---
HPI - Dental/Oral General: Chief complaint: Dental/Oral Stated complaint: Tooth Infection Time Seen by Provider: 12/26/21 14:40 History of Present Illness: 61-year-old female comes in today for complaints of dental pain. Patient has swelling and tenderness to the left central incisor. Patient reports pain and discomfort started yesterday. Patient reports nausea. Patient appears nontoxic. Patient appears in mild to moderate pain. Review of Systems General: Reports: 10 or more systems reviewed and unremarkable except in HPI and below ENMT: Reports: dental pain PFSH ED PFSH: Medical History Adult onset hypothyroidism Atherosclerosis of coronary artery of [place] heart without angina pectoris Atypical chest pain Chronic diastolic heart failure secondary to coronary artery disease Decreased GFR Diabetes mellitus with hyperglycemia, with long-term current use of insulin Fatigue [place], bilateral History of CVA with residual deficit Left side weakness 08/22/20 Hyperlipidemia Hypertension Morbid obesity with BMI of 40.0-44.9, adult Multiple environmental allergies Osteoarthritis involving multiple joints on both sides of body Pes planus of both feet Tooth abscess Umbilical hernia Surgical History History of carpal tunnel surgery Right History of heart artery stent History of shoulder surgery Left Family History Father Anesthesia complication Clotting disorder CAD (coronary artery disease) Dementia Mother Clotting disorder CAD (coronary artery disease) Diabetes Brother Clotting disorder Other Hyperlipidemia Hypertension Denies family history of Chronic kidney disease (CKD) Suicide Bleeding disorder Lung disease Cancer Stroke Social History Smoking and tobacco status: never smoked Second hand smoke exposure: No Smoking risk assessment/counseling performed?: Yes Alcohol intake: never Desire information about alcohol rehabilitation?: No Counseling given: No Desire information about substance/drug rehabilitation?: No Counseling given: No Adopted: No Caregiver/support person: No Lives independently: Yes Household members: none Housing: House Marital status: Number of children: 0 service: No Current occupational status: retired and disabled Pets and animals: Yes History of recent travel: No Current gender identity: Female Physical Exam Const: COMMON NORMALS: alert HENMT: TEETH & GINGIVA: Yes abnormal tooth and associated gingiva (Left central incisor decay, surrounding gingival swelling and redness) Neck/C-Spine: COMMON NORMALS: full ROM and no meningeal signs Resp: COMMON NORMALS: normal respiratory effort and clear to auscultation bilaterally AUSCULTATION: clear to auscultation bilaterally Cardio: COMMON NORMALS: regular rate and regular rhythm RATE: regular rate RHYTHM: regular rhythm Neuro: SENSORIUM/ORIENTATION: Yes alert MENINGEAL SIGNS: Yes no meningeal signs Skin: COMMON NORMALS: no rashes or lesions noted GENERAL SKIN EXAM: no rashes or lesions noted Course Vital Signs: Vital signs: Vital Signs Temperature 97.2 F L 12/26/21 14:41 Pulse Rate 64 12/26/21 14:41 Respiratory Rate 16 12/26/21 14:41 Blood Pressure 193/66 12/26/21 14:41 Pulse Oximetry 98 12/26/21 14:41 Oxygen Delivery Me thod 12/26/21 14:41 MDM - Dental/Oral Medical Decision Making Patient comes in today for dental pain. On exam patient has poor dentition. Patient has significant decay to the left central incisor with surrounding erythema. Airway is intact. Vital signs are unremarkable except for some elevation of blood pressure. Differential diagnosis includes dental abscess, tooth ache, airway compromise. No signs of serious illness or injuries noted. Patient does have some swelling to the gingiva of the upper left central incisor. Patient be started on antibiotics and written for a few hydrocodone for pain. Patient's pain and use of ibuprofen has probably increase patient's blood pressure. This was reviewed with patient. Recommended acetaminophen along with the hydrocodone for further pain relief. Patient reported understanding and agreed to plan. Discharge Plan Discharge Patient Disposition: Home Clinical Impression: Toothache, Abscess, dental Condition: Stable Prescriptions: New amoxicillin-pot clavulanate 875-125 mg tablet 1 tab PO BID Qty: 14 0RF hydrocodone-acetaminophen 5-325 mg tablet 1 tab PO Q8H PRN (Reason: pain) Qty: 6 0RF No Action (DME) Diabetic shoes with 3 sets of inserts See Rx Instructions .Route .MEDSUPPLY Qty: 1 0RF Rx Instructions: As directed by ANU&O isosorbide mononitrate 30 mg tablet extended release 24 hr 30 mg PO BID@0700,2200 Qty: 60 5RF aspirin 81 mg tablet,delayed release (DR/EC) 81 mg PO DAILY@2200 Qty: 90 3RF (DME) Diabetic shoes with 3 inserts See Rx Instructions .ROUTE .MEDSUPPLY Qty: 1 0RF Rx Instructions: As directed furosemide [Lasix] 20 mg tablet 20 mg PO QAM PRN (Reason: edema & blood pressure) Qty: 30 5RF (DME) pen needle, diabetic 33 gauge x 5/32 needle See Rx Instructions .ROUTE .MEDSUPPLY Qty: 100 2RF Rx Instructions: 1 time day erythromycin 500 mg tablet 500 mg PO TID Qty: 30 0RF celecoxib 200 mg capsule 200 mg PO BID Qty: 30 0RF (DME) mucus clearing device Device See Rx Instructions .Route Qty: 1 0RF Rx Instructions: As directed guaifenesin 200 mg/5 mL liquid 400 mg PO Q6H PRN (Reason: cough) Qty: 118 3RF budesonide-formoterol [Symbicort] 80-4.5 mcg/actuation HFA aerosol inhaler 1 puff inhalation BID Qty: 10.2 3RF nitroglycerin [Nitrostat] 0.4 mg tablet, sublingual 0.4 mg sublingual Q5M PRN (Reason: chest pain) Qty: 25 3RF Rx Instructions: do not exceed 3 doses per episode atorvastatin 80 mg tablet 80 mg PO DAILY Qty: 90 2RF levothyroxine 100 mcg tablet See Rx Instructions .ROUTE .COMPLEX Qty: 30 5RF Dose Instruction: TAKE ONE TABLET BY MOUTH DAILY AT 7:00AM FOR LOW THYROID Rx Instructions: TAKE ONE TABLET BY MOUTH DAILY AT 7:00AM FOR LOW THYROID diphenhydramine HCl [Benadryl Allergy] 25 mg tablet 50 mg PO ONCE PRN (Reason: allergy symptoms) Qty: 2 0RF Rx Instructions: Take 50mg 1 hour prior to CTA for dye allergy prednisone 50 mg tablet 50 mg PO DIRECTED PRN (Reason: Allergy protocol) Qty: 3 0RF Rx Instructions: Take 50mg 13hrs, 7hrs, and 1 hr prior to CTA for iodine allergy metoprolol tartrate 25 mg tablet See Rx Instructions .ROUTE .COMPLEX Qty: 60 5RF Dose Instruction: TAKE ONE TABLET BY MOUTH TWICE DAILY Rx Instructions: TAKE ONE TABLET BY MOUTH TWICE DAILY Discharge Orders: Discharge ED (Routine); Ordered 12/26/21 Ordered By: Sunny Erazo Referrals: Pepe Denise MD [Primary Care Provider] - Discharge Diet: Usual diet Discharge Activity: Increase activity as tolerated Patient Instructions: Dental Abscess (ED), Opioid Safety Activity Restrictions/Additional Instructions: Take medications as directed. Drink plenty of water with medications. Follow-up with dentist for definitive care. Return to ER for new concerns or worsening symptoms such as fever greater than 100.4, persistent nausea and vomiting, or uncontrolled pain. Coding Level of Care Code ED Geotechnical Laboratory Technician for Philip Alexandre
[2021-12-26] MEDS: amoxicillin-clav 875-125 mg Tablet 1 TAB PO (14:57)
[2021-12-26] MEDS: cloNIDine 0.1 mg Tablet PO (14:57)
== END 2021-12-26 15:00 | disposition home or self-care (01) ==
PROVIDERS: Emergency Provider Nurse Practitioner Family; PCP Family Medicine Adult Medicine
DX: K04.7 Periapical abscess without sinus (principal); Z79.82 Long term (current) use of aspirin; I25.10 Atherosclerotic heart disease of native coronary artery without angina pectoris; I11.0 Hypertensive heart disease with heart failure; I50.32 Chronic diastolic (congestive) heart failure; E11.9 Type 2 diabetes mellitus without complications; Z86.73 Personal history of transient ischemic attack (TIA), and cerebral infarction without residual deficits; E78.5 Hyperlipidemia, unspecified
CPT/HCPCS: 99283

== ENCOUNTER → 2022-01-21 09:24 | Outpatient (BNVA) | payer MEDICAID, SELFPAY | PROVIDERS: PCP Family Medicine Adult Medicine; Visit Provider Internal Medicine Pulmonary Disease | DX: J45.909 Unspecified asthma, uncomplicated (principal); R06.02 Shortness of breath; I50.32 Chronic diastolic (congestive) heart failure; I25.10 Atherosclerotic heart disease of native coronary artery without angina pectoris; Z95.5 Presence of coronary angioplasty implant and graft; R40.0 Somnolence; J82.83 Eosinophilic asthma; M25.641 Stiffness of right hand, not elsewhere classified; M25.642 Stiffness of left hand, not elsewhere classified; E66.01 Morbid (severe) obesity due to excess calories; Z68.41 Body mass index [BMI] 40.0-44.9, adult; Z91.14 Patient's other noncompliance with medication regimen | CPT/HCPCS: 99214 ==

== ENCOUNTER → 2022-01-26 11:17 | Outpatient (BNVA) | payer MEDICAID, SELFPAY | PROVIDERS: PCP Family Medicine Adult Medicine; Visit Provider Podiatrist Foot & Ankle Surgery | DX: E11.65 Type 2 diabetes mellitus with hyperglycemia (principal); I73.9 Peripheral vascular disease, unspecified; M21.41 Flat foot [pes planus] (acquired), right foot; M21.42 Flat foot [pes planus] (acquired), left foot; Z79.4 Long term (current) use of insulin; L60.3 Nail dystrophy; M20.41 Other hammer toe(s) (acquired), right foot; M20.42 Other hammer toe(s) (acquired), left foot | CPT/HCPCS: 11721 ==

== ENCOUNTER 2022-01-29 08:58 | Outpatient (CLI) | payer MEDICAID, SELFPAY ==
--- NOTE | 2022-01-29 09:33 | XR_ITS ---
WS: [id number] XR chest 2V insp/exp [id number] REASON FOR EXAM: cough FINDINGS: The heart and mediastinum are within normal limits. There is calcified granulomatous disease bilaterally. There appears to be appropriate hemidiaphragmatic movement and change in lung volume in the inspirati on and expiration images. There are reticular interstitial lung opacities which appear to be chronic in nature. Possible peribronchial cuffing. XR/XR chest 2V insp/exp [id number] IMPRESSION: No acute chest abnormality. Possible interstitial lung and small airway disease. This could be further eval uated with unenhanced CT of the chest as clinically warranted.
== END 2022-01-29 08:59 | disposition home or self-care (01) ==
LOC: RAD 08:59
PROVIDERS: PCP Family Medicine Adult Medicine; Visit Provider Family Medicine Adult Medicine
DX: R05.9 Cough, unspecified (principal)
CPT/HCPCS: 71046

== ENCOUNTER 2022-03-19 08:22 | Outpatient (CLI) | payer MEDICAID, SELFPAY ==
--- NOTE | 2022-03-19 08:30 | CT_ITS ---
WS: [id number] Exam: CT chest wo con [id number] Date/Time of Exam: 03/19/2022 8:30 AM Reason For Exam: to check for intersitial lung disease DLP: 2.[address] scans at [facility] use at least one of these dose optimization techniques: automated e xposure control; mA and/or kV adjustment per patient size (includes targeted exams where dose is matc hed to clinical indication); or iterative reconstruction. High-resolution noncontrast CT scan of the chest is performed. Compared to CT scan of the chest perfo ed 04/13/2021. The lungs are clear and fully inflated. No sign of interstitial lung disease. There is mild bronchiec tasis in the lower lung zones. No infiltrates or pleural effusions. The airway is patent. The thoraci c aorta is normal in caliber. No mediastinal or hilar lymphadenopathy. No destructive bone lesions ar e chest wall defects. Spondylosis of the T-spine. Small hiatal hernia noted. Coronary artery atherosc lerosis noted. CT/CT chest wo con [id number] IMPRESSION: 1. No pulmonary mass nodule or infiltrate. 2. No sign of interstitial lung disease. Mild bronchiectasis in the lower lung zones. 3. No lymphadenopathy in the chest or other significant finding.
== END 2022-03-19 08:23 | disposition home or self-care (01) ==
PROVIDERS: PCP Family Medicine Adult Medicine; Visit Provider Internal Medicine Pulmonary Disease
DX: J47.9 Bronchiectasis, uncomplicated (principal)
CPT/HCPCS: 71250

== ENCOUNTER → 2022-04-23 11:36 | Outpatient (BNVA) | payer MEDICAID, SELFPAY | PROVIDERS: PCP Family Medicine Adult Medicine; Visit Provider Family Medicine Adult Medicine | DX: E01.0 Iodine-deficiency related diffuse (endemic) goiter (principal); E03.8 Other specified hypothyroidism; E11.69 Type 2 diabetes mellitus with other specified complication; E78.2 Mixed hyperlipidemia; R59.1 Generalized enlarged lymph nodes; E55.9 Vitamin D deficiency, unspecified; R76.8 Other specified abnormal immunological findings in serum; I25.118 Atherosclerotic heart disease of native coronary artery with other forms of angina pectoris | CPT/HCPCS: 80061; 82306; 83036; 84439; 84443 ==

== ENCOUNTER → 2022-05-03 12:51 | Outpatient (BNVA) | payer MEDICAID, SELFPAY | PROVIDERS: PCP Family Medicine Adult Medicine; Visit Provider Internal Medicine | DX: E11.69 Type 2 diabetes mellitus with other specified complication (principal); E78.2 Mixed hyperlipidemia; E55.9 Vitamin D deficiency, unspecified; E03.8 Other specified hypothyroidism; R13.10 Dysphagia, unspecified; E66.01 Morbid (severe) obesity due to excess calories; Z68.41 Body mass index [BMI] 40.0-44.9, adult; I50.32 Chronic diastolic (congestive) heart failure; Z79.890 Hormone replacement therapy | CPT/HCPCS: 99214 ==

== ENCOUNTER 2022-05-20 14:17 | Emergency (ER) | payer MEDICAID, SELFPAY ==
[2022-05-20] VITALS (7 sets, daily range): BP systolic 165–246; BP diastolic 75–114; PULSE 52–100; RESP 16–22; TEMP 36.4; O2SAT 95–98
--- NOTE | 2022-05-20 14:39 | ECG_ITS ---
[facility] Test Date: 2022-05-20 Pat Name: Angelica Acevedo Department: Room: Gender: Female Outsole Cutter Machine: : 1960 Requested By: Eliceo Boles Order Number: [id number] Shayy MD: David Mcnamara M.D. Measurements Intervals [place] Rate: 55 P: 47 WI: 133 QRS: -38 QRSD: 132 T: 31 QT: 411 QTc: 396 Interpretive Statements SINUS BRADYCARDIA LEFT AXIS DEVIATION [QRS AXIS < -30] INTRAVENTRICULAR CONDUCTION DELAY [130+ ms QRS DURATION] VOLTAGE CRITERIA FOR LVH [MEETS CRITERIA IN ONE OF: R(aVL), S(V1), R(V5), R(V5/V6)+S(V1)] Compared to ECG 04/13/2021 18:21:03 Intraventricular conduction delay now present Sinus rhythm no longer present Electronically Signed On 05-20-2022 19:00:48 APPLIANCE LINE ASSEMBLER by David Mcnamara M.D. [id number] f
[2022-05-20 14:49] LABS: Glucose Point of Care 281 mg/dL (70-110)
--- NOTE | 2022-05-20 16:17 | CTR_ITS ---
PROCEDURE INFORMATION: Exam: CT Head Without Contrast Exam date and time: 05/20/2022 4:58 PM Age: 61 years old Clinical indication: Pain; Headache; Additional info: KNAPP TECHNIQUE: Imaging protocol: Computed tomography of the head without contrast. Radiation optimization: All CT scans at this facility use at least one of these dose optimization techniques: automated exposure control; mA and/or kV adjustment per patient size (includes targeted exams where dose is matched to clinical indication); or iterative reconstruction. COMPARISON: CT head wo con* [id number] 08/30/2020 10:36 PM RADIATION DOSE METRICS: Total DLP (mGy-cm): 1019.48 FINDINGS: Brain: No hemorrhage. No edema. Moderate diffuse cerebral atrophy. No significant white matter disease. No mass effect. Cerebral ventricles: No ventriculomegaly. Paranasal sinuses: Visualized sinuses are unremarkable. No fluid levels. Mastoid air cells: Visualized mastoid air cells are well aerated. Bones/joints: Unremarkable. No acute fracture. Soft tissues: Unremarkable. CT/CT head wo con* [id number] IMPRESSION: No acute intracranial abnormality.
--- NOTE | 2022-05-20 16:23 | W.ED.HA ---
HPI - Headache General: Chief Complaint: Headache Stated Complaint: weakness Time Seen by Provider: 05/20/22 16:16 Source: patient Mode of arrival: ambulatory Limitations: no limitations History of Present Illness: 61-year-old female states that she has been having a headache over the last 2 days. She states her headaches currently is a 6 out of 10 she has had some dizziness and fogginess no focal neurodeficits. She is hypertensive here she has a history of high blood pressure she denies any vomiting or diarrhea denies any chest pain. Associated symptoms: Deny chest pain, fever(s), nausea, rash or vomiting Review of Systems Const: Denies: fever(s), chills, body aches or change in appetite Eyes: Denies: blurry vision or eye discomfort ENMT: Denies: throat pain or dental pain Card: Denies: chest pain Resp: Denies: dyspnea GI: Denies: abdominal pain, nausea, vomiting or diarrhea : Denies: dysuria Musc: Denies: neck pain or back pain Skin/Breast: Denies: rash Neuro: Reports: headache(s) Psych: Denies: depression Alec/Lymph: Denies: easy bruising All/Imm: Denies: urticaria PFSH ED PFSH: Medical History Adult onset hypothyroidism Atherosclerosis of coronary artery of [place] heart without angina pectoris Atypical chest pain Behavior disturbance Chronic cough Chronic diastolic heart failure secondary to coronary artery disease COVID-19 COVID Pos test 04/03/2021 Diabetes type 2, uncontrolled GERD (gastroesophageal reflux disease) History of CVA with residual deficit Left side weakness 08/22/20 Hypertension IBS (irritable bowel syndrome) Morbid obesity with BMI of 40.0-44.9, adult Osteoarthritis involving multiple joints on both sides of body Pes planus of both feet PND (post-nasal drip) Umbilical hernia Surgical History History of carpal tunnel surgery Right History of heart artery stent History of shoulder surgery Left Family History Father Anesthesia complication Clotting disorder CAD (coronary artery disease) Dementia Mother Clotting disorder CAD (coronary artery disease) Diabetes Brother Clotting disorder Other Hyperlipidemia Hypertension Denies family history of Chronic kidney disease (CKD) Suicide Bleeding disorder Lung disease Cancer Stroke Social History Smoking and tobacco status: never smoked Second hand smoke exposure: No Smoking risk assessment/counseling performed?: Yes Alcohol intake: never Desire information about alcohol rehabilitation?: No Counseling given: No Desire information about substance/drug rehabilitation?: No Counseling given: No Adopted: No Caregiver/support person: No Lives independently: Yes Household members: none Housing: House Marital status: Number of children: 0 service: No Current occupational status: retired and disabled Pets and animals: Yes History of recent travel: No Current gender identity: Female Physical Exam Const: COMMON NORMALS: no acute distress, patient oriented x3 and healthy appearing HENMT: COMMON NORMALS: normocephalic and atraumatic HEAD & SCALP: normocephalic and atraumatic Eye: COMMON NORMALS: Equal, round and reactive pupils present and EOMs intact bilaterally PUPIL: Yes Equal, round and reactive pupils present Neck/C-Spine: COMMON NORMALS: full ROM and supple Chest: COMMONS NORMALS: normal inspection of the chest and normal palpation of entire chest wall Resp: COMMON NORMALS: normal respiratory effort, No retractions, No use of accessory muscles and clear to auscultation bilaterally AUSCULTATION: clear to auscultation bilaterally Cardio: COMMON NORMALS: regular rate, regular rhythm and No murmurs present (Cardio) RATE: regular rate RHYTHM: regular rhythm GI: COMMON NORMALS: Normal to inspection, nondistended, normoactive bowel sounds present, Soft to palpation, non-tender and no masses PALPATION: Yes Soft to palpation Extremity: COMMON NORMALS: normal to inspection and full ROM Neuro: COMMON NORMALS: patient oriented x3, moves all extremities and no focal motor deficits CRANIAL NERVES: Yes CN normal except as noted SPEECH: speech normal GAIT: Yes Normal gait present MOTOR EXAM: 5/5 motor strength present throughout Psych: COMMON NORMALS: mental status grossly normal, Normal thought process present and cooperative THOUGHT PROCESS: Normal thought process present Skin: COMMON NORMALS: no rashes or lesions noted and no wounds GENERAL SKIN EXAM: no rashes or lesions noted Course Vital Signs: Vital signs: Vital Signs Temperature 97.6 F 05/20/22 14:35 Pulse Rate 71 05/20/22 18:00 Respiratory Rate 22 H 05/20/22 18:00 Blood Pressure 165/76 05/20/22 18:00 Pulse Oximetry 97 05/20/22 16:30 MDM - Headache Medical Decision Making Patient presents here with hypertension she also had a mild headache is resolved here after her blood pressure improved she is refused CT angio head neck or CT head normal no signs of subarachnoid hemorrhage she stable for discharge she is to follow-up with PCP and return if worsening. Lab Data 05/20/22 17:30 05/20/22 17:[address] 05/20/22 16:17 IMPRESSION: No acute intracranial abnormality. Laboratory Results WBC 7.6 10^3/uL (4.0-10.0) 05/20/22 17:30 RBC 4.43 10^6/uL (4.1-5.3) 05/20/22 17:30 Hgb 13.4 g/dL (11.5-15.3) 05/20/22 17:30 Hct 42.2 % (37.0-47.0) 05/20/22 17:30 MCV 95.3 fl (81-99) 05/20/22 17:30 MCH 30.2 pg (28.0-34.0) 05/20/22 17:30 MCHC 31.8 g/dL (30.0-36.0) 05/20/22 17:30 RDW 13.2 % (12.1-15.1) 05/20/22 17:30 Plt Count 382 10^3/cmm (130-400) 05/20/22 17: MPV 10.2 fL (7.4-10.4) 05/20/22 17:30 Neut % (Auto) 64.1 % 05/20/22 17:30 Lymph % (Auto) 25.8 % 05/20/22 17:30 [place]ion % (Auto) 6.6 % 05/20/22 17:30 Eos % (Auto) 2.9 % 05/20/22 17:30 Baso % (Auto) 0.5 % 05/20/22 17:30 Neut # (Auto) 4.89 10^3/uL (1.8-7.7) 05/20/22 17:30 Lymph # (Auto) 2.0 10^3/uL (0.8-4.8) 05/20/22 17:30 [place]ion # (Auto) 0.5 10^3/uL (0.2-0.9) 05/20/22 17:30 Eos # (Auto) 0.2 10^3/uL (0.0-0.8) 05/20/22 17:30 Baso # (Auto) 0.0 10^3/uL (0.0-0.1) 05/20/22 17:30 Nucleated RBC % (auto) 0 % 05/20/22 17:30 Nucleated RBCs # 0.0 /100WBC 05/20/22 17:30 POC Glucose 281 mg/dL (70-110) H 05/20/22 14:47 Discharge Plan Discharge Patient Disposition: Home Clinical Impression: Headache, Hypertension Condition: Stable Prescriptions: No Action (DME) Diabetic shoes with 3 sets of inserts See Rx Instructions .Route .MEDSUPPLY Qty: 1 0RF Rx Instructions: As directed by ANU&O aspirin 81 mg tablet,delayed release (DR/EC) 81 mg PO DAILY@2200 Qty: 90 3RF (DME) Diabetic shoes with 3 inserts See Rx Instructions .ROUTE .MEDSUPPLY Qty: 1 0RF Rx Instructions: As directed (DME) pen needle, diabetic 33 gauge x 5/32 needle See Rx Instructions .ROUTE .MEDSUPPLY Qty: 100 2RF Rx Instructions: 1 time day isosorbide mononitrate 30 mg tablet extended release 24 hr 30 mg PO BID@0700,2200 Qty: 60 5RF metoprolol tartrate 25 mg tablet 25 mg PO BID Qty: 60 5RF Victoza 3-Johnny 0.6 mg/0.1 mL (18 mg/3 mL) pen injector See Rx Instructions SUBCUT DAILY 90 Days Qty: 27 3RF Rx Instructions: subcutaneously daily; 0.6mg daily for 1 week, 1.2 daily for 1 week and then 1.8mg daily fluticasone propionate 50 mcg/actuation spray,suspension 1 spray intranasal BID Qty: 16 3RF Rx Instructions: administer into each nostril omeprazole magnesium 20 mg capsule,delayed release(DR/EC) 20 mg PO BID Qty: 60 4RF furosemide [Lasix] 20 mg tablet 40 mg PO QAM PRN (Reason: edema & blood pressure) Qty: 60 5RF potassium chloride 20 mEq tablet extended release 20 meq PO DAILY Qty: 30 5RF dicyclomine 10 mg/5 mL solution 20 mg PO BID Qty: 473 0RF (DME) mucus clearing device Device See Rx Instructions .Route Qty: 1 0RF Rx Instructions: As directed guaifenesin 200 mg/5 mL liquid 400 mg PO Q6H PRN (Reason: cough) Qty: 118 3RF nitroglycerin [Nitrostat] 0.4 mg tablet, sublingual 0.4 mg sublingual Q5M PRN (Reason: chest pain) Qty: 25 3RF Rx Instructions: do not exceed 3 doses per episode levothyroxine 100 mcg tablet See Rx Instructions .ROUTE .COMPLEX Qty: 30 5RF Dose Instruction: TAKE ONE TABLET BY MOUTH DAILY AT 7:00AM FOR LOW THYROID Rx Instructions: TAKE ONE TABLET BY MOUTH DAILY AT 7:00AM FOR LOW THYROID rosuvastatin 20 mg tablet 20 mg PO DAILY Qty: 30 5RF (DME) OneTouch Ultra Test Strip See Rx Instructions .Route Qty: 400 3RF Rx Instructions: 2 to 3 times a day Discharge Orders: Discharge ED (Routine); Ordered 05/20/22 Ordered By: Justin Ribeiro Referrals: Pepe Denise MD [Primary Care Provider] - Discharge Diet: Advance as tolerated Discharge Activity: Resume usual activity Patient Instructions: Hypertension (ED) Coding Level of Care Code ED Morning Caregiver for Chg Fwd Exam Comprehensive
[2022-05-20] MEDS: hyDRALAzine 20 mg/mL INJ 1 mL 10 MG IVP (17:27)
[2022-05-20 17:39] LABS: Basophils % 0.5 %; Eosinophils # 0.2 10^3/uL (0.0-0.8); Eosinophils % 2.9 %; Hematocrit 42.2 % (37.0-47.0); Hemoglobin 13.4 g/dL (11.5-15.3); Lymphocytes % 25.8 %; Mean Corpuscular HGB Conc 31.8 g/dL (30.0-36.0); Mean Corpuscular Hemoglobin 30.2 pg (28.0-34.0); Mean Corpuscular Volume 95.3 fl (81-99); Mean Platelet Volume 10.2 fL (7.4-10.4); Monocytes # 0.5 10^3/uL (0.2-0.9); Monocytes % 6.6 %; Neutrophils # 4.89 10^3/uL (1.8-7.7); Neutrophils % 64.1 %; Nucleated Red Blood Cells % 0 %; Platelet Count 382 10^3/cmm (130-400); Red Blood Count 4.43 10^6/uL (4.1-5.3); Red Cell Distribution Width 13.2 % (12.1-15.1); White Blood Count 7.6 10^3/uL (4.0-10.0)
[2022-05-20 18:49] LABS: Alanine Aminotransferase 16 U/L (0-33); Albumin Level 4.1 g/dL (3.5-5.2); Alkaline Phosphatase 107 U/L (35-105); Aspartate Amino Transferase 20 U/L (0-32); Blood Urea Nitrogen 20 mg/dL (8-23); Calcium 9.7 mg/dL (8.5-10.5); Carbon Dioxide 25 mmol/L (22-29); Chloride 100 mmol/L (98-107); Creatinine Clr Calc Pharmacy 100.2964; Globulin 4.4 g/dL (1.3-4.6); Glomerular Filtration Rate 84.5 mL/min (90-130); Glucose 195 mg/dL (65-115); Osmolality Calculated 290 mOsm/kg (285-295); Sodium 136 mmol/L (136-145); Total Bilirubin 0.5 mg/dL (0.15-1.2); Total Protein 8.5 g/dL (6.6-8.7)
== END 2022-05-20 18:40 | disposition home or self-care (01) ==
PROVIDERS: Emergency Provider Emergency Medicine; PCP Family Medicine Adult Medicine
DX: R51.9 Headache, unspecified (principal); Z79.82 Long term (current) use of aspirin; I25.10 Atherosclerotic heart disease of native coronary artery without angina pectoris; I11.0 Hypertensive heart disease with heart failure; I50.32 Chronic diastolic (congestive) heart failure; E11.9 Type 2 diabetes mellitus without complications; Z86.73 Personal history of transient ischemic attack (TIA), and cerebral infarction without residual deficits
CPT/HCPCS: 36416; 70450; 80053; 82962; 85025; 93005; 96374; 99285; J0360

== ENCOUNTER 2022-08-22 13:31 | Emergency (ER) | payer MEDICAID, SELFPAY ==
[2022-08-22] VITALS (29 sets, daily range): BP systolic 146–175; BP diastolic 63–78; PULSE 57–74; RESP 14–26; TEMP 36.6; O2SAT 92–98
--- NOTE | 2022-08-22 13:44 | ECG_ITS ---
[facility] Test Date: 2022-08-22 Pat Name: Angelica Acevedo Department: Room: Gender: Female Pricing Strategist: : 1960 Requested By: Mikael Hanson Order Number: [id number] Shayy MD: Rebel Mitchell M.D. Measurements Intervals [place] Rate: 71 P: 48 [place]: 141 QRS: -25 QRSD: 108 T: 31 QT: 400 QTc: 437 Interpretive Statements SINUS RHYTHM BORDERLINE LEFT AXIS DEVIATION [QRS AXIS < -20] VOLTAGE CRITERIA FOR LVH [MEETS CRITERIA IN ONE OF: R(aVL), S(V1), R(V5), R(V5/V6)+S(V1)] INTERPRETATION BASED ON A DEFAULT AGE OF 40 YEARS Compared to ECG 05/20/2022 14:39:35 Sinus bradycardia no longer present Intraventricular conduction delay no longer present Electronically Signed On 08-22-2022 22:09:38 CDT by Rebel Mitchell M.D. [id number] f
--- NOTE | 2022-08-22 13:52 | XRR_ITS ---
PROCEDURE INFORMATION: Exam: XR Chest Exam date and time: 08/22/2022 2:03 PM Age: 62 years old Clinical indication: Pain; Chest pressure; Additional info: Chest pain TECHNIQUE: Imaging protocol: Radiologic exam of the chest. Views: 1 view. COMPARISON: CT chest [facility] [id number] 03/19/2022 8:32 AM FINDINGS: Lungs: Unremarkable. No consolidation. Pleural spaces: Unremarkable. No pleural effusion. No pneumothorax. Heart/Mediastinum: Cardiac silhouette appears mildly enlarged on this portable chest. Bones/joints: Unremarkable. XR/XR chest 1V portable [id number] IMPRESSION: Mild cardiomegaly otherwise negative chest.
--- NOTE | 2022-08-22 14:15 | ED_ITS ---
HPI - Chest Pain General: Chief Complaint: Chest Pain Stated Complaint: Used Nitro today, need to be seen. Time Seen by Provider: 08/22/22 13:44 History of Present Illness: Patient presents to the ER with complaints of chest pain x1 that radiated into her left arm. Pain started approximately 4 AM this morning and was resolved with 1 nitro. Patient says her left arm after that felt like he was being constricted. Patient does see Dr. Mitchell. Patient has had 1 PA in the past. She is currently pain-free at this moment MD complaint: chest pain Pertinent past history: coronary artery disease and prior PA Onset (ago): hour(s) (10 hours ago) Timing of current episode: episodic and now resolved Prior episodes: Yes Onset: during rest Pain location: left chest Pain radiation: left arm Severity: mild Quality: aching Relieving factors: nitroglycerin Exacerbating factors: nothing Associated symptoms: Reports no associated symptoms; Deny abdominal pain, dyspnea, fever(s), nausea, palpitations or vomiting Treatment prior to arrival: nitroglycerin Review of Systems General: Reports: 10 or more systems reviewed and unremarkable except in HPI and below Const: Denies: fever(s) or chills Eyes: Denies: change in vision ENMT: Denies: throat pain or odynophagia Card: Reports: chest pain; Denies: palpitations or irregular heart rhythm Resp: Denies: dyspnea, productive cough or non-productive cough GI: Denies: abdominal pain, nausea, vomiting or diarrhea : Denies: flank pain Musc: Denies: neck pain or back pain Skin/Breast: Denies: rash or pruritus Neuro: Denies: headache(s), numbness in extremities or weakness in extremities PFSH ED PFSH: Medical History Adult onset hypothyroidism Atherosclerosis of coronary artery of [place] heart without angina pectoris Atypical chest pain Behavior disturbance Chronic cough Chronic diastolic heart failure secondary to coronary artery disease COVID-19 COVID Pos test 04/03/2021 Diabetes type 2, uncontrolled GERD (gastroesophageal reflux disease) Headache History of CVA with residual deficit Left side weakness 08/22/20 Hospital discharge follow-up Hypertension IBS (irritable bowel syndrome) Morbid obesity with BMI of 40.0-44.9, adult Osteoarthritis involving multiple joints on both sides of body Pes planus of both feet PND (post-nasal drip) Umbilical hernia Surgical History History of carpal tunnel surgery Right History of heart artery stent History of shoulder surgery Left Family History Father Anesthesia complication Clotting disorder CAD (coronary artery disease) Dementia Mother Clotting disorder CAD (coronary artery disease) Diabetes Brother Clotting disorder Other Hyperlipidemia Hypertension Denies family history of Chronic kidney disease (CKD) Suicide Bleeding disorder Lung disease Cancer Stroke Social History Smoking and tobacco status: never smoked Second hand smoke exposure: No Smoking risk assessment/counseling performed?: Yes Alcohol intake: never Desire information about alcohol rehabilitation?: No Counseling given: No Desire information about substance/drug rehabilitation?: No Counseling given: No Adopted: No Caregiver/support person: No Lives independently: Yes Household members: none Housing: House Marital status: Number of children: 0 service: No Current occupational status: retired and disabled Pets and animals: Yes Current gender identity: Female Physical Exam Const: COMMON NORMALS: no acute distress, average body habitus, patient oriented x3, no limitations, healthy appearing, alert and well nourished HENMT: COMMON NORMALS: normocephalic, atraumatic, hearing grossly normal bilaterally, external ears normal, Normal external nose present and moist oral mucous membranes HEAD & SCALP: normocephalic and atraumatic NOSE: Normal external nose present EXTERNAL EAR: Yes external ears normal Neck/C-Spine: COMMON NORMALS: full ROM, no lymphadenopathy, supple, no meningeal signs, no JVD and Thyroid normal THYROID: Thyroid normal Chest: COMMONS NORMALS: normal inspection of the chest and normal palpation of entire chest wall Resp: COMMON NORMALS: normal respiratory effort, No retractions, No use of accessory muscles and clear to auscultation bilaterally AUSCULTATION: clear to auscultation bilaterally Cardio: COMMON NORMALS: no JVD, regular rate, regular rhythm, S1 normal heart sound present, S2 normal heart sound present, No gallops present (Cardio), No clicks present (Cardio), No murmurs present (Cardio) and No rub (Cardio) RATE: regular rate RHYTHM: regular rhythm HEART SOUNDS: S1 normal heart sound present and S2 normal heart sound present GI: COMMON NORMALS: Normal to inspection, nondistended, normoactive bowel sounds present, Soft to palpation, non-tender, No hepatosplenomegaly present and no masses PALPATION: Yes Soft to palpation and Yes No hepatosplenomegaly present Neuro: COMMON NORMALS: patient oriented x3, CN's II-XII intact bilaterally, moves all extremities, no focal motor deficits and no sensory deficits noted SENSORIUM/ORIENTATION: Yes alert MENINGEAL SIGNS: Yes no meningeal signs Psych: COMMON NORMALS: mental status grossly normal, Normal thought process present, cooperative, normal affect and speech normal SPEECH: Yes normal speech THOUGHT PROCESS: Normal thought process present Course Vital Signs: Vital signs: Vital Signs Temperature 97.9 F 08/22/22 13:42 Pulse Rate 62 08/22/22 16:00 Respiratory Rate 19 H 08/22/22 16:00 Blood Pressure 151/64 08/22/22 16:00 Pulse Oximetry 95 08/22/22 16:00 Oxygen Delivery Me thod 08/22/22 13:42 MDM - Chest Pain Medical Decision Making Patient presents to the ER with complaints of chest pain and left arm tightness. Patient reports awakening with the symptoms proximate 4 AM. Took 1 nitro pain resolved and went back to sleep. Patient reports took another nitro approximate 1 hour later when the pain came back. Patient is currently pain-free. Serial EKGs serial lab work was obtained and all of which was essentially benign. Patient left her dog in the car during her ER visit and did not want to stay any longer. Patient left before we get the results back of the 2-hour troponin we will call her if it is anything other than negative. 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 Differential Diagnosis Unlikely acute massive pulmonary embolism, acute respiratory failure, acute myocardial infarction, cardiac arrest or sudden cardiac Lab Data 08/22/22 14:15 08/22/22 14:15 Radiology Impressions Chest X-Ray 08/22/22 13:52 IMPRESSION: Mild cardiomegaly otherwise negative chest. Laboratory Results WBC 8.7 10^3/uL (4.0-10.0) 08/22/22 14:15 RBC 4.52 10^6/uL (4.1-5.3) 08/22/22 14:15 Hgb 13.6 g/dL (11.5-15.3) 08/22/22 14:15 Hct 41.5 % (37.0-47.0) 08/22/22 14:15 MCV 91.8 fl (81-99) 08/22/22 14:15 MCH 30.1 pg (28.0-34.0) 08/22/22 14:15 MCHC 32.8 g/dL (30.0-36.0) 08/22/22 14:15 RDW 12.4 % (12.1-15.1) 08/22/22 14:15 Plt Count 378 10^3/cmm (130-400) 08/22/22 14:15 MPV 9.6 fL (7.4-10.4) 08/22/22 14:15 Neut % (Auto) 71.5 % 08/22/22 14:15 Lymph % (Auto) 19.7 % 08/22/22 14:15 [place] % (Auto) 5.5 % 08/22/22 14:15 Eos % (Auto) 2.4 % 08/22/22 14:15 Baso % (Auto) 0.6 % 08/22/22 14:15 Neut # (Auto) 6.20 10^3/uL (1.8-7.7) 08/22/22 14:15 Lymph # (Auto) 1.7 10^3/uL (0.8-4.8) 08/22/22 14:15 [place] # (Auto) 0.5 10^3/uL (0.2-0.9) 08/22/22 14:15 Eos # (Auto) 0.2 10^3/uL (0.0-0.8) 08/22/22 14:15 Baso # (Auto) 0.1 10^3/uL (0.0-0.1) 08/22/22 14:15 Nucleated RBC % (auto) 0 % 08/22/22 14:15 Nucleated RBCs # 0.0 /100WBC 08/22/22 14:15 PT 12.90 SECONDS (12.1-14.9) 08/22/22 14:15 INR 0.95 (0.8-1.2) 08/22/22 14:15 Sodium 133 mmol/L (136-145) L 08/22/22 14:15 Potassium 4.4 mmol/L (3.5-5.1) 08/22/22 14:15 Chloride 98 mmol/L (98-107) 08/22/22 14:15 Carbon Dioxide 23 mmol/L (22-29) 08/22/22 14:15 Anion Gap 16.4 (5-19) 08/22/22 14:15 BUN 20 mg/dL (8-23) 08/22/22 14:15 Creatinine 0.8 mg/dL (0.5-0.9) 08/22/22 14:15 GFR Calculation 72.2 mL/min (90-130) L 08/22/22 14:15 Glucose 120 mg/dL (65-115) H 08/22/22 14:15 Calculated Osmolality 280 mOsm/kg (285-295) L 08/22/22 14:15 Calcium 9.0 mg/dL (8.5-10.5) 08/22/22 14:15 Total Bilirubin 0.4 mg/dL (0.15-1.2) 08/22/22 14:15 AST 19 U/L (0-32) 08/22/22 14:15 ALT 14 U/L (0-33) 08/22/22 14:15 Alkaline Phosphatase 74 U/L (35-105) 08/22/22 14:15 Troponin T Baseline 11 ng/L (0-10) H 08/22/22 14:15 NT-Pro-B Natriuret Pep 166 pg/mL (0-125) H 08/22/22 14:15 Total Protein 7.3 g/dL (6.6-8.7) 08/22/22 14:15 Albumin 3.7 g/dL (3.5-5.2) 08/22/22 14:15 Globulin 3.6 g/dL (1.3-4.6) 08/22/22 14:15 EKG Data EKG 1: I personally reviewed and interpreted this EKG as follows: EKG interpretation date: 08/22/22 EKG interpretation time: 14:11 Prior EKG tracings: not available for review Interpretation: EKG showed normal sinus rhythm at 89 bpm, ND interval 137, QRS duration 112, QTc 390, incomplete right bundle branch block, probable lateral myocardial infarction of indeterminate age with Q waves in 1 and aVL V5 and V6 EKG 2: I personally reviewed and interpreted this EKG as follows: EKG interpretation date: 08/22/22 EKG interpretation time: 15:30 Prior EKG tracings: available for review Interpretation: EKG showed normal sinus bradycardia at rate of 58 bpm, ND interval 122, QRS duration 121, QTc of 422, possible right ventricular conduction delay, LVH, possible antiseptal infarct probably old with Q waves in V1 through V4 Discharge Plan Discharge Patient Disposition: Home Clinical Impression: Chest pain Condition: Stable Prescriptions: No Action (DME) Diabetic shoes with 3 sets of inserts See Rx Instructions .Route .MEDSUPPLY Qty: 1 0RF Rx Instructions: As directed by ANU&O aspirin 81 mg tablet,delayed release (DR/EC) 81 mg PO DAILY@2200 Qty: 90 3RF (DME) Diabetic shoes with 3 inserts See Rx Instructions .ROUTE .MEDSUPPLY Qty: 1 0RF Rx Instructions: As directed (DME) pen needle, diabetic 33 gauge x 5/32 needle See Rx Instructions .ROUTE .MEDSUPPLY Qty: 100 2RF Rx Instructions: 1 time day isosorbide mononitrate 30 mg tablet extended release 24 hr 30 mg PO BID@0700,2200 Qty: 60 5RF metoprolol tartrate 25 mg tablet 25 mg PO BID Qty: 60 5RF Victoza 3-Johnny 0.6 mg/0.1 mL (18 mg/3 mL) pen injector See Rx Instructions SUBCUT DAILY 90 Days Qty: 27 3RF Rx Instructions: subcutaneously daily; 0.6mg daily for 1 week, 1.2 daily for 1 week and then 1.8mg daily fluticasone propionate 50 mcg/actuation spray,suspension 1 spray intranasal BID Qty: 16 3RF Rx Instructions: administer into each nostril omeprazole magnesium 20 mg capsule,delayed release(DR/EC) 20 mg PO BID Qty: 60 4RF furosemide [Lasix] 20 mg tablet 40 mg PO QAM PRN (Reason: edema & blood pressure) Qty: 60 5RF potassium chloride 20 mEq tablet extended release 20 meq PO DAILY Qty: 30 5RF dicyclomine 10 mg/5 mL solution 20 mg PO BID Qty: 473 0RF (DME) mucus clearing device Device See Rx Instructions .Route Qty: 1 0RF Rx Instructions: As directed guaifenesin 200 mg/5 mL liquid 400 mg PO Q6H PRN (Reason: cough) Qty: 118 3RF nitroglycerin [Nitrostat] 0.4 mg tablet, sublingual 0.4 mg sublingual Q5M PRN (Reason: chest pain) Qty: 25 3RF Rx Instructions: do not exceed 3 doses per episode levothyroxine 100 mcg tablet See Rx Instructions .ROUTE .COMPLEX Qty: 30 5RF Dose Instruction: TAKE ONE TABLET BY MOUTH DAILY AT 7:00AM FOR LOW THYROID Rx Instructions: TAKE ONE TABLET BY MOUTH DAILY AT 7:00AM FOR LOW THYROID rosuvastatin 20 mg tablet 20 mg PO DAILY Qty: 30 5RF (DME) OneTouch Ultra Test Strip See Rx Instructions .Route Qty: 400 3RF Rx Instructions: 2 to 3 times a day (DME) pen needle, diabetic [BD Ultra-Fine Micro Pen Needle] 32 gauge x 1/4 needle See Rx Instructions .Route Qty: 100 3RF Rx Instructions: using daily Discharge Orders: Discharge ED (Routine); Ordered 08/22/22 Ordered By: Iam Salazar Referrals: Pepe Denise MD [Primary Care Provider] - 1 week Patient Instructions: Chest Pain (ED) Coding Level of Care Code ED Pulp Piler for Philip Alexandre
[2022-08-22 14:27] LABS: Basophils # 0.1 10^3/uL (0.0-0.1); Basophils % 0.6 %; Eosinophils # 0.2 10^3/uL (0.0-0.8); Eosinophils % 2.4 %; Hematocrit 41.5 % (37.0-47.0); Hemoglobin 13.6 g/dL (11.5-15.3); Lymphocytes # 1.7 10^3/uL (0.8-4.8); Lymphocytes % 19.7 %; Mean Corpuscular HGB Conc 32.8 g/dL (30.0-36.0); Mean Corpuscular Hemoglobin 30.1 pg (28.0-34.0); Mean Corpuscular Volume 91.8 fl (81-99); Mean Platelet Volume 9.6 fL (7.4-10.4); Monocytes # 0.5 10^3/uL (0.2-0.9); Monocytes % 5.5 %; Neutrophils % 71.5 %; Nucleated Red Blood Cells % 0 %; Platelet Count 378 10^3/cmm (130-400); Red Blood Count 4.52 10^6/uL (4.1-5.3); Red Cell Distribution Width 12.4 % (12.1-15.1); White Blood Count 8.7 10^3/uL (4.0-10.0)
[2022-08-22 14:42] LABS: INR 0.95 (0.8-1.2)
[2022-08-22 14:50] LABS: Troponin(5th) Baseline 11 ng/L (0-10)
[2022-08-22 14:55] LABS: Alanine Aminotransferase 14 U/L (0-33); Albumin Level 3.7 g/dL (3.5-5.2); Alkaline Phosphatase 74 U/L (35-105); Anion Gap 16.4 (5-19); Aspartate Amino Transferase 19 U/L (0-32); Blood Urea Nitrogen 20 mg/dL (8-23); Carbon Dioxide 23 mmol/L (22-29); Chloride 98 mmol/L (98-107); Creatinine Clr Calc Pharmacy 86.6196; Globulin 3.6 g/dL (1.3-4.6); Glomerular Filtration Rate 72.2 mL/min (90-130); Glucose 120 mg/dL (65-115); NT Pro B Type Natriuretic Pept 166 pg/mL (0-125); Osmolality Calculated 280 mOsm/kg (285-295); Potassium 4.4 mmol/L (3.5-5.1); Sodium 133 mmol/L (136-145); Total Bilirubin 0.4 mg/dL (0.15-1.2); Total Protein 7.3 g/dL (6.6-8.7)
--- NOTE | 2022-08-22 15:52 | ECG_ITS ---
[facility] Test Date: 2022-08-22 Pat Name: Angelica Acevedo Department: Room: Gender: Female Faculty Dean: : [id number] Requested By: Iam Salazar Order Number: [id number] Shayy MD: Rebel Mitchell M.D. Measurements Intervals [place] Rate: 58 P: 47 ID: [id number] QRS: -8 QRSD: 121 T: 5 QT: 424 QTc: 420 Interpretive Statements SINUS BRADYCARDIA POSSIBLE RIGHT VENTRICULAR CONDUCTION DELAY [RSR (QR) IN V1/V2] VOLTAGE CRITERIA FOR LVH [MEETS CRITERIA IN ONE OF: R(aVL), S(V1), R(V5), R(V5/V6)+S(V1)] POSSIBLE ANTEROSEPTAL MYOCARDIAL INFARCTION , PROBABLY OLD [30 ms Q WAVE IN V1-V4] Compared to ECG 08/22/2022 13:40:52 Myocardial infarct finding now present Sinus rhythm no longer present Electronically Signed On 08-22-2022 22:20:53 CDT by Rebel Mitchell M.D. [id number]
[2022-08-22 17:07] LABS: Troponin 5 2HR 9.83 ng/L (0-10)
[2022-08-22 17:29] LABS: Troponin 5 2HR Delta -1.17 ABS# (0-10)
== END 2022-08-22 17:07 | disposition home or self-care (01) ==
PROVIDERS: Emergency Provider Emergency Medicine; PCP Family Medicine Adult Medicine
DX: R07.9 Chest pain, unspecified (principal); Z79.82 Long term (current) use of aspirin; I25.10 Atherosclerotic heart disease of native coronary artery without angina pectoris; I11.0 Hypertensive heart disease with heart failure; I50.32 Chronic diastolic (congestive) heart failure; E11.9 Type 2 diabetes mellitus without complications; Z86.73 Personal history of transient ischemic attack (TIA), and cerebral infarction without residual deficits
CPT/HCPCS: 71045; 80053; 83880; 84484; 85025; 85610; 93005; 99285

== ENCOUNTER → 2022-09-09 14:19 | Outpatient (BNVA) | payer MEDICAID, SELFPAY | PROVIDERS: PCP Family Medicine Adult Medicine; Visit Provider Internal Medicine | DX: E11.69 Type 2 diabetes mellitus with other specified complication (principal); E55.9 Vitamin D deficiency, unspecified; E78.2 Mixed hyperlipidemia; E03.8 Other specified hypothyroidism; R13.10 Dysphagia, unspecified; E66.01 Morbid (severe) obesity due to excess calories; Z68.41 Body mass index [BMI] 40.0-44.9, adult; Z79.890 Hormone replacement therapy; Z79.899 Other long term (current) drug therapy | CPT/HCPCS: 99214 ==

== ENCOUNTER 2022-09-10 08:08 | Outpatient (CLI) | payer MEDICAID, SELFPAY ==
--- NOTE | 2022-09-10 08:22 | XR_ITS ---
WS: [id number] Exam: XR chest 2V* [id number] Date/Time of Exam: 09/10/2022 8:25 AM Reason For Exam: CHRONIC COUGH Comparison 08/22/2022. The lungs are clear and fully expanded. Normal cardiomediastinal silhouette. No pleural effusions. An choring screws in the left humeral head. Bony structures are otherwise intact. Spondylosis of the gerardo ras spine. XR/XR chest 2V* [id number] IMPRESSION: 1. No acute cardiopulmonary finding. No change.
== END 2022-09-10 08:09 | disposition home or self-care (01) ==
LOC: RAD 08:13
PROVIDERS: PCP Family Medicine Adult Medicine; Visit Provider Family Medicine
DX: R05.3 Chronic cough (principal)
CPT/HCPCS: 71046

== ENCOUNTER 2022-09-10 08:15 | Outpatient (CLI) | payer MEDICAID, SELFPAY ==
[2022-09-10 09:40] LABS: Alanine Aminotransferase 16 U/L (0-33); Albumin Level 3.9 g/dL (3.5-5.2); Alkaline Phosphatase 65 U/L (35-105); Anion Gap 15.2 (5-19); Aspartate Amino Transferase 24 U/L (0-32); Blood Urea Nitrogen 26 mg/dL (8-23); Carbon Dioxide 23 mmol/L (22-29); Chloride 106 mmol/L (98-107); Chol HDL Ratio 5.58 mg/dL (0.0-4.40); Cholesterol 223 mg/dL (0-200); Free T4 Free Thyroxine 1.29 ng/dL (0.82-1.77); Globulin 3.6 g/dL (1.3-4.6); Glucose 158 mg/dL (65-115); HDL Cholesterol 40 mg/dL (60-100); LDL Cholesterol Calculated 150 mg/dL (50-129); LDL HDL Ratio 3.75 RATIO (0.00-3.22); Osmolality Calculated 298 mOsm/kg (285-295); Potassium 4.2 mmol/L (3.5-5.1); Sodium 140 mmol/L (136-145); Thyroid Stimulating Hormone 2.08 uIU/mL (0.27-4.20); Total Bilirubin 0.3 mg/dL (0.15-1.2); Total Protein 7.5 g/dL (6.6-8.7); Triglycerides 165 mg/dL (0-150)
[2022-09-10 10:40] LABS: Estmated Average Glucose 157; Hemoglobin A1C 7.1 % (4.0-6.0)
== END 2022-09-10 08:16 | disposition home or self-care (01) ==
PROVIDERS: PCP Family Medicine Adult Medicine; Visit Provider Internal Medicine
DX: E11.69 Type 2 diabetes mellitus with other specified complication (principal); E55.9 Vitamin D deficiency, unspecified; E78.2 Mixed hyperlipidemia
CPT/HCPCS: 36415; 80053; 80061; 83036; 84439; 84443

== ENCOUNTER 2022-09-15 08:34 | Outpatient (CLI) | payer MEDICAID, SELFPAY | END 2022-09-15 08:35 | disposition home or self-care (01) | LOC: RT 08:36 | PROVIDERS: PCP Family Medicine; Visit Provider Family Medicine | DX: R05.3 Chronic cough (principal) | CPT/HCPCS: 94010 ==

== ENCOUNTER → 2022-09-28 13:57 | Outpatient (BNVA) | payer MEDICAID, SELFPAY | PROVIDERS: PCP Family Medicine; Visit Provider Internal Medicine Cardiovascular Disease | DX: I25.118 Atherosclerotic heart disease of native coronary artery with other forms of angina pectoris (principal); G47.33 Obstructive sleep apnea (adult) (pediatric); E03.8 Other specified hypothyroidism; E66.01 Morbid (severe) obesity due to excess calories; Z68.41 Body mass index [BMI] 40.0-44.9, adult; I11.0 Hypertensive heart disease with heart failure; I50.32 Chronic diastolic (congestive) heart failure; I69.30 Unspecified sequelae of cerebral infarction | CPT/HCPCS: 99214 ==

== ENCOUNTER 2022-10-26 11:35 | Outpatient (CLI) | payer MEDICAID, SELFPAY ==
--- NOTE | 2022-10-26 11:49 | CT_ITS ---
WS: [id number] CT HEAD NONCONTRAST HISTORY: CONCUSSION W/O LOSS OF CONSCIOUSNESS TECHNIQUE: Contiguous axial imaging performed through the brain in 2.5 mm imaging. Bone and soft tiss ue windows. Sagittal and coronal reformats reviewed. All CT scans at [facility] use at least one of these dose optimization techniques: automated exposure control; mA and/or kV adjustment per pa tient size (includes targeted exams where dose is matched to clinical indication); or iterative recon struction. DLP: 1021.25 mGy.cm COMPARISON: 05/20/2022 No acute intracranial hemorrhage, midline shift or mass effect. Mild atrophy and small vessel ischemic disease. No progression since the prior examinations. No prior large territory infarct. Ventricles: Normal size with no hydrocephalus. No inferior displacement of cerebellar tonsils. Paranasal sinuses: As visualized are clear. Mastoid air cells: Well pneumatized. Calvarium and scalp: Skull is intact with no soft tissue edema or swelling. CT/CT head wo con* [id number] IMPRESSION: 1. No acute intracranial hemorrhage or edema. 2. No skull fracture. 3. Mild atrophy and mild small vessel ischemic disease is chronic.
--- NOTE | 2022-10-26 12:18 | CT_ITS ---
WS: [id number] CT FACIAL BONES HISTORY: HEAD TRAUMA, RIGHT ZYGOMATIC ARCH BRUISE AND LUMP TECHNIQUE: Images obtained from the supraorbital location through the mandible. Soft tissue and bone windows are reviewed. Coronal and sagittal reformats have also been submitted. DLP: 486.[address] scans at [facility] use at least one of these dose optimization techniques: automated e xposure control; mA and/or kV adjustment per patient size (includes targeted exams where dose is matc hed to clinical indication); or iterative reconstruction. COMPARISON: None available. No facial bone fracture. Zygomatic arches and nasal bones are normal. No soft tissue abnormalities. N o air-fluid levels within the paranasal sinuses. No soft tissue lacerations or hematoma. Upper cervic al spine is negative for acute fracture. CT/CT facial bones wo con* [id number] IMPRESSION: Negative facial bone CT. No acute fracture or hematoma.
== END 2022-10-26 11:36 | disposition home or self-care (01) ==
LOC: RAD 11:36
PROVIDERS: PCP Family Medicine; Visit Provider Family Medicine
DX: S06.0X0A Concussion without loss of consciousness, initial encounter (principal); W20.8XXA Other cause of strike by thrown, projected or falling object, initial encounter; R22.0 Localized swelling, mass and lump, head; R11.2 Nausea with vomiting, unspecified
CPT/HCPCS: 70450; 70486

== ENCOUNTER → 2022-11-19 09:01 | Outpatient (BNVA) | payer MEDICAID, SELFPAY | PROVIDERS: PCP Family Medicine; Visit Provider Internal Medicine Pulmonary Disease | DX: J45.30 Mild persistent asthma, uncomplicated (principal); I50.32 Chronic diastolic (congestive) heart failure; I25.10 Atherosclerotic heart disease of native coronary artery without angina pectoris; Z95.5 Presence of coronary angioplasty implant and graft; R40.0 Somnolence; J82.83 Eosinophilic asthma; E66.01 Morbid (severe) obesity due to excess calories; Z68.42 Body mass index [BMI] 45.0-49.9, adult; Z77.22 Contact with and (suspected) exposure to environmental tobacco smoke (acute) (chronic) | CPT/HCPCS: 99214 ==

== ENCOUNTER → 2023-01-04 08:12 | Outpatient (BNVA) | payer MEDICAID, SELFPAY | PROVIDERS: PCP Family Medicine; Visit Provider Podiatrist Foot & Ankle Surgery | DX: E11.8 Type 2 diabetes mellitus with unspecified complications (principal); M21.42 Flat foot [pes planus] (acquired), left foot; M21.41 Flat foot [pes planus] (acquired), right foot; E11.65 Type 2 diabetes mellitus with hyperglycemia; L60.3 Nail dystrophy; Z79.4 Long term (current) use of insulin; I73.9 Peripheral vascular disease, unspecified; M20.41 Other hammer toe(s) (acquired), right foot; M20.42 Other hammer toe(s) (acquired), left foot | CPT/HCPCS: 11721 ==

== ENCOUNTER 2023-01-20 09:42 | Outpatient (CLI) | payer MEDICAID, SELFPAY ==
--- NOTE | 2023-01-20 10:01 | XR_ITS ---
WS: [id number] Sacrum and coccyx, 3 views, Clinical Data: COCCYDYNIA Comparison: None. Findings: No fractures or dislocations are seen. The SI joints and pubic symphysis are unremarkable. No bone de struction or erosion is seen. Impression: Negative sacrum and coccyx.
== END 2023-01-20 09:43 | disposition home or self-care (01) ==
PROVIDERS: PCP Family Medicine; Visit Provider Family Medicine
DX: M53.3 Sacrococcygeal disorders, not elsewhere classified (principal)
CPT/HCPCS: 72220

== ENCOUNTER 2023-03-16 15:58 | Inpatient (IN) | payer MEDICAID, SELFPAY ==
[2023-03-16 16:13] VITALS: BP 162/81; PULSE 75; RESP 17; TEMP 36.5; O2SAT 96; BMI 40.8
--- NOTE | 2023-03-16 16:32 | CTR_ITS ---
PROCEDURE INFORMATION: Exam: CT Head Without Contrast Exam date and time: 03/16/2023 4:52 PM Age: 62 years old Clinical indication: Altered mental status/memory loss; Additional info: AMS, onset 2 days ago--expressive aphasia TECHNIQUE: Imaging protocol: Computed tomography of the head without contrast. Radiation optimization: All CT scans at this facility use at least one of these dose optimization techniques: automated exposure control; mA and/or kV adjustment per patient size (includes targeted exams where dose is matched to clinical indication); or iterative reconstruction. REPORTING DATA: Count of CT and Cardiac NM exams in prior 12 months: This patient has received 4 known CTs and 0 known cardiac nuclear medicine studies in the 12 months prior to the current study. COMPARISON: CT head wo con* [id number] 10/26/2022 12:19 PM RADIATION DOSE METRICS: Total DLP (mGy-cm): 1022 FINDINGS: Brain: There is new asymmetric hypodensity in the left temporal lobe for example on series 5, image number 15 and series 13, image number 8 suspicious for possible ischemia given history. No hemorrhage. No midline shift or mass effect. Cerebral ventricles: No ventriculomegaly. Paranasal sinuses: No significant inflammation. No fluid levels. Mastoid air cells: Visualized mastoid air cells are well aerated. Bones/joints: Unremarkable. No acute fracture. Soft tissues: Unremarkable. CT/CT head wo con* [id number] IMPRESSION: New asymmetric hypodensity is seen in the left temporal lobe suspicious for possible acute ischemia given history. Recommend MRI brain correlation.
--- NOTE | 2023-03-16 16:32 | W.ED.GENADLT ---
HPI - General Adult General: Chief complaint: General Medical Stated complaint: Carlos sent for possible ams Time Seen by Provider: 03/16/23 16:05 History of Present Illness: 62-year-old female presents emergency department with her costume director. The patient is having significant difficulty with her speech. The costume director states that she initially started having difficulty 2 days ago and called him the day before presenting to the emergency department today stating that she was having increased difficulty with thinking and speaking. Pressure states that approximately 4 hours prior to arrival here in the emergency department today she called again and he became concerned as she seemed to be more agitated and having increased difficulty finding her words. Patient states that she did have a ENT procedure 2 days ago and feels like her difficulty started after the procedure. I am unable to verify in fact that she had any procedure as her costume director states he does not know if she had a procedure or any type of recent office visit. Review of Systems General: Reports: ROS unobtainable due to mental status PFSH ED PFSH: Medical History Adult onset hypothyroidism Atherosclerosis of coronary artery of [place] heart without angina pectoris Atypical chest pain Behavior disturbance Chronic cough Chronic diastolic heart failure secondary to coronary artery disease COVID-19 COVID Pos test 04/03/2021 Diabetes type 2, uncontrolled Fall GERD (gastroesophageal reflux disease) Headache History of CVA with residual deficit Left side weakness 08/22/20 Hospital discharge follow-up Hypertension IBS (irritable bowel syndrome) Morbid obesity with BMI of 40.0-44.9, adult Osteoarthritis involving multiple joints on both sides of body Pes planus of both feet PND (post-nasal drip) Umbilical hernia Surgical History History of carpal tunnel surgery Right History of heart artery stent History of shoulder surgery Left Family History Father Anesthesia complication Clotting disorder CAD (coronary artery disease) Dementia Mother Clotting disorder CAD (coronary artery disease) Diabetes Brother Clotting disorder Other Hyperlipidemia Hypertension Denies family history of Chronic kidney disease (CKD) Suicide Bleeding disorder Lung disease Cancer Stroke Social History Smoking and tobacco/nicotine status: never used tobacco/nicotine Second hand smoke exposure: No Alcohol intake: never Substance/Drug Use: never Adopted: No Caregiver/support person: No Lives independently: Yes Household members: none Housing: House Marital status: Number of children: 0 service: No Current occupational status: retired and disabled Pets and animals: Yes Do you think of yourself as: Straight/Heterosexual Current gender identity: Female Physical Exam Const: COMMON NORMALS: patient oriented x3 (Alert to person, place unable to determine if she is aware of the time as s), alert and well nourished HENMT: COMMON NORMALS: normocephalic, atraumatic, Normal external nose present, Normal nasal mucous membranes and turbinates present and moist oral mucous membranes HEAD & SCALP: normocephalic and atraumatic NOSE: Normal external nose present and Normal nasal mucous membranes and turbinates present Eye: COMMON NORMALS: Equal, round and reactive pupils present, EOMs intact bilaterally and normal visual sadler by confrontation PUPIL: Yes Equal, round and reactive pupils present Neck/C-Spine: COMMON NORMALS: full ROM, no lymphadenopathy, supple and no meningeal signs Chest: COMMONS NORMALS: normal inspection of the chest and normal palpation of entire chest wall Resp: COMMON NORMALS: normal respiratory effort and clear to auscultation bilaterally AUSCULTATION: clear to auscultation bilaterally Cardio: COMMON NORMALS: regular rate, regular rhythm, S1 normal heart sound present, S2 normal heart sound present and Peripheral pulses 2+ throughout RATE: regular rate RHYTHM: regular rhythm HEART SOUNDS: S1 normal heart sound present and S2 normal heart sound present PERIPHERAL PULSES: Peripheral pulses 2+ throughout GI: COMMON NORMALS: Normal to inspection, nondistended, normoactive bowel sounds present, Soft to palpation and non-tender PALPATION: Yes Soft to palpation : COMMON NORMALS: Yes no CVA tenderness BLADDER/KIDNEY EXAM: Yes no CVA tenderness Back/Pelvis: COMMON NORMALS: no CVA tenderness, thoracic and lumbar spine normal to inspection, no thoracic nor lumbar tenderness and thoraco-lumbar ROM normal Extremity: COMMON NORMALS: normal to inspection, full ROM and capillary refill normal Neuro: COMMON NORMALS: patient oriented x3 (Alert to person, place unable to determine if she is aware of the time as s) SENSORIUM/ORIENTATION: Yes alert MENINGEAL SIGNS: Yes no meningeal signs, No nuccal rigidity, No Brudzinski's sign present and No Kernig's sign presnet CRANIAL NERVES: Yes CN normal except as noted COORDINATION/BALANCE: [id number] test normal, ggjf-bi-[id number] test normal and tandem gait normal SPEECH: expressive aphasia GAIT: Yes Normal gait present SENSORY EXAM: Yes extremities and Trunk sensory exam abnormal MOTOR EXAM: 5/5 motor strength present throughout COORDINATION: [id number] test normal, [id number] test normal and tandem gait normal Psych: SPEECH: Yes incoherent THOUGHT PROCESS: confused Skin: COMMON NORMALS: no rashes or lesions noted GENERAL SKIN EXAM: no rashes or lesions noted Course Vital Signs: Vital signs: Vital Signs Temperature 97.5 F L 03/18/23 20:00 Pulse Rate 49 L 03/18/23 20:00 Respiratory Rate 15 03/18/23 20:00 Blood Pressure 148/75 03/18/23 20:00 Pulse Oximetry 94 03/18/23 20:00 Oxygen Delivery Me thod Room Air 03/18/23 20:00 MDM - General Adult Medical Decision Making Physical exam completed and documented, given her question of timing initially with her onset of symptoms we did complete a CT scan of the head without contrast which demonstrated an acute finding in the left temporal region. Patient is extremely allergic to contrast dye and is absolutely refusing any CT scan of her head and neck with IV contrast. She states that she does stop breathing and that her heart is stopped in the past. Differential Diagnosis CVA, hypoglycemia, Medical Records I reviewed the patient's medical records. Lab Data I reviewed the patient's lab results. 03/17/23 11:15 03/17/23 11:[address] 03/16/23 16:32 IMPRESSION: New asymmetric hypodensity is seen in the left temporal lobe suspicious for possible acute ischemia given history. Recommend MRI brain correlation. ADDENDUM: 03/16/23 [id number] THIS REPORT CONTAINS FINDINGS THAT MAY BE CRITICAL TO PATIENT CARE. The findings were verbally communicated via telephone conference with LINA Vera at 5:28 PM CDT on 03/16/2023. The findings were acknowledged and understood. Chest X-Ray 03/17/23 11:05 IMPRESSION: No acute findings. KUB X-Ray 03/17/23 11:05 IMPRESSION: 1. Normal bowel gas pattern 2. Mild stool burden. 3. No radio-dense foreign body. Laboratory Results WBC 8.07 10^3/uL (3.29-11.43) 03/16/23 16:41 RBC 4.77 10^6/uL (3.85-5.65) 03/16/23 16:41 Hgb 14.20 g/dL (11.27-16.99) 03/16/23 16:41 Hct 43.8 % (36-47) 03/16/23 16:41 MCV 91.8 fl (85-98) 03/16/23 16:41 MCH 29.8 pg (27-33) 03/16/23 16:41 MCHC 32.4 g/dL (30-55) 03/16/23 16:41 RDW 12.0 % (12.1-15.1) L 03/16/23 16:41 Plt Count 411 10^3/cmm (157-399) H 03/16/23 16:41 MPV 9.6 fL (7.4-10.4) 03/16/23 16:41 Neut % (Auto) 72.1 % 03/16/23 16:41 Lymph % (Auto) 18.1 % 03/16/23 16:41 [place] % (Auto) 7.2 % 03/16/23 16:41 Eos % (Auto) 1.6 % 03/16/23 16:41 Baso % (Auto) 0.6 % 03/16/23 16:41 Neut # (Auto) 5.82 10^3/uL (1.8-7.7) 03/16/23 16:41 Lymph # (Auto) 1.5 10^3/uL (0.8-4.8) 03/16/23 16:41 [place] # (Auto) 0.6 10^3/uL (0.2-0.9) 03/16/23 16:41 Eos # (Auto) 0.1 10^3/uL (0.0-0.8) 03/16/23 16:41 Baso # (Auto) 0.1 10^3/uL (0.0-0.1) 03/16/23 16:41 Nucleated RBC % (auto) 0 % 03/16/23 16:41 Nucleated RBCs # 0.0 /100WBC 03/16/23 16:41 Sodium 136 mmol/L (136-145) 03/16/23 16:41 Potassium 4.5 mmol/L (3.5-5.1) 03/16/23 16:41 Chloride 102 mmol/L (98-107) 03/16/23 16:41 Carbon Dioxide 22 mmol/L (22-29) 03/16/23 16:41 Anion Gap 16.5 (5-19) 03/16/23 16:41 BUN 23 mg/dL (8-23) 03/16/23 16:41 Creatinine 1.0 mg/dL (0.5-0.9) H 03/16/23 16:41 GFR Calculation 55.8 mL/min (90-130) L 03/16/23 16:41 Glucose 153 mg/dL (65-115) H 03/16/23 16:41 POC Glucose 157 mg/dL (70-110) H 03/16/23 16:37 Calculated Osmolality 289 mOsm/kg (285-295) 03/16/23 16:41 Calcium 9.0 mg/dL (8.5-10.5) 03/16/23 16:41 Iron 53 ug/dL (37-145) 03/16/23 16:41 TIBC 337 mcg/dl 03/16/23 16:41 % Saturation 15.7 % (20-50) L 03/16/23 16:41 Unsat Iron Binding 284 ug/dL (112-347) 03/16/23 16:41 Total Bilirubin 0.6 mg/dL (0.15-1.2) 03/16/23 16:41 AST 19 U/L (0-32) 03/16/23 16:41 ALT 10 U/L (0-33) 03/16/23 16:41 Alkaline Phosphatase 73 U/L (35-105) 03/16/23 16:41 Total Protein 7.8 g/dL (6.6-8.7) 03/16/23 16:41 Albumin 3.7 g/dL (3.5-5.2) 03/16/23 16:41 Globulin 4.1 g/dL (1.3-4.6) 03/16/23 16:41 Vitamin B12 264 pg/mL (232-1245) 03/16/23 16:41 Procalcitonin 0.04 ng/mL (0-0.5) 03/16/23 16:41 TSH Cancelled 03/16/23 16:41 All radiology interpretation(s) finalized by discharge ED provider radiology interpretation(s): FINDINGS: Brain: There is new asymmetric hypodensity in the left temporal lobe for example on series 5, image number 15 and series 13, image number 8 suspicious for possible ischemia given history. No hemorrhage. No midline shift or mass effect. Cerebral ventricles: No ventriculomegaly. Paranasal sinuses: No significant inflammation. No fluid levels. Mastoid air cells: Visualized mastoid air cells are well aerated. Bones/joints: Unremarkable. No acute fracture. Soft tissues: Unremarkable. CT/CT head wo con* [id number] IMPRESSION: New asymmetric hypodensity is seen in the left temporal lobe suspicious for possible acute ischemia given history. Recommend MRI brain correlation. Discharge Plan Discharge Patient Disposition: Admitted As Inpatient Admit Provider: Derrek Farr Clinical Impression: Acute CVA (cerebrovascular accident), AMS (altered mental status) Condition: Stable Coding Level of Care Code ED Valver for Philip Alexandre
[2023-03-16 16:48] LABS: Glucose Point of Care 157 mg/dL (70-110)
[2023-03-16 16:56] LABS: Basophils # 0.1 10^3/uL (0.0-0.1); Basophils % 0.6 %; Eosinophils # 0.1 10^3/uL (0.0-0.8); Eosinophils % 1.6 %; Hematocrit 43.8 % (36-47); Lymphocytes # 1.5 10^3/uL (0.8-4.8); Lymphocytes % 18.1 %; Mean Corpuscular HGB Conc 32.4 g/dL (30-55); Mean Corpuscular Hemoglobin 29.8 pg (27-33); Mean Corpuscular Volume 91.8 fl (85-98); Mean Platelet Volume 9.6 fL (7.4-10.4); Monocytes # 0.6 10^3/uL (0.2-0.9); Monocytes % 7.2 %; Neutrophils # 5.82 10^3/uL (1.8-7.7); Neutrophils % 72.1 %; Nucleated Red Blood Cells % 0 %; Platelet Count 411 10^3/cmm (157-399); Red Blood Count 4.77 10^6/uL (3.85-5.65); White Blood Count 8.07 10^3/uL (3.29-11.43)
[2023-03-16 16:57] VITALS: BP 145/62
[2023-03-16 17:25] LABS: Alanine Aminotransferase 10 U/L (0-33); Albumin Level 3.7 g/dL (3.5-5.2); Alkaline Phosphatase 73 U/L (35-105); Blood Urea Nitrogen 23 mg/dL (8-23); Carbon Dioxide 22 mmol/L (22-29); Chloride 102 mmol/L (98-107); Globulin 4.1 g/dL (1.3-4.6); Glomerular Filtration Rate 55.8 mL/min (90-130); Glucose 153 mg/dL (65-115); Osmolality Calculated 289 mOsm/kg (285-295); Sodium 136 mmol/L (136-145); Total Bilirubin 0.6 mg/dL (0.15-1.2); Total Protein 7.8 g/dL (6.6-8.7)
[2023-03-16 17:35] LABS: Anion Gap 16.5 (5-19); Aspartate Amino Transferase 19 U/L (0-32); Potassium 4.5 mmol/L (3.5-5.1)
--- NOTE | 2023-03-16 18:30 | PM.CONSULT ---
Providers/Reason For Consult Consulting Physician/Specialty*: Aditya Walker MD neurology and epilepsy Reason for Consult*: Acute left temporal lobe infarction With intermittent receptive aphasia and paraphasias since 03/14/2023 Emergency department room 5 Primary Care Provider: Cj Gonzalez MD History of Present Illness History of Present Illness Angelica Acevedo is a 62 year old female with a history of a remote stroke 2-1/2 years ago. Approximately 2 days prior to presenting to the [facility] emergency room the patient was reported to display strange behavior on 03/14/2023. On 03/15/2023 the patient was reported to display more strange behavior associated with trouble communicating. 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 emergency room for evaluation. Noncontrast head CT performed on 03/16/2023 revealed acute stroke in the left temporal area. The patient was uncooperative in the emergency room and repeatedly attempted to leave the emergency department throughout emergency room physician's evaluation as well as during my neurological evaluation. She displayed played intermittent confusion During the neurological assessment and during questioning. The patient displayed paraphasias and some receptive aphasia. Patient answered some questions appropriately but At other times her answers were incorrect and at times her conversation did not coincide with the questions being presented. The patient was walking up and down the hallway and security had to be called. Patient repeatedly was attempting to leave through the locked exit door. The patient stated that she had to get home to her support animal. In view of the patient's report of change in her mental status 2 days prior to presenting to the [facility] emergency room, patient was not a candidate for tenecteplase or thrombectomy. The patient is also severely allergic to IV contrast dye which resulted in anaphylactic type reaction with respiratory/airway closure, CT angiogram could not be obtained. I was informed by the ER physician that MRA with gadolinium can be performed in the morning of 03/17/2023. But patient may not be cooperative for the study. I recommend the patient Not be released from the hospital secondary to potential harm to self. I recommended obtaining carotid duplex study or MRA of the great vessels of the neck on 03/17/2023 and started aspirin and Lipitor per NIH stroke protocol. Also recommended patient undergo 2D echocardiogram and I agree with using sedation temporarily to keep patient from potentially harming herself and prevent patient from removing her IV Hep-Lock. Past medical history: Cerebral infarction 2-1/2 years ago ENT procedure 03/14/2023 Diabetes mellitus Drug allergies: Iodinated contrast medium which resulted in anaphylactic type reaction Sulfonamide antibiotics which resulted in chest pain Walnuts which resulted in a cough Soy type reaction unknown Whey type of reaction unknown Outpatient medications on the formulary:(Note due to the patient's current medical condition the medications could not be reconciled) Norvasc 5 mg p.o. daily Aspirin 81 mg p.o. daily Albuterol 90 mcg per accusation 2 puffs every 6 hours as needed Dicyclomine 20 mg p.o. twice daily Dulagutide 0.5 mg subcutaneously every 7 days Lasix 40 mg p.o. daily Nitroglycerin 0.4 mg sublingual as needed Spironolactone 25 mg p.o. every morning Crestor 20 mg p.o. daily Metoprolol 50 mg p.o. twice daily Isosorbide mononitrate 30 mg p.o. twice a day Habits: Unknown Family history: Unable to obtain secondary to patient's change in mental status and agitation Social history: Patient reports that she lives alone with her support dog Medications/Allergies Home Medications Medication Instructions Recorded Confirmed Last Taken Type Diabetic shoes with 3 inserts #1 ea 04/28/21 01/04/23 Unknown Rx aspirin 81 mg tablet,delayed 81 mg PO DAILY@2200 circulation 04/28/21 01/04/23 Unknown Rx release #90 tabs pen needle, diabetic 33 gauge x #100 ea 04/28/21 01/04/23 Unknown Rx 5/32 Diabetic shoes with 3 sets of #1 ea 05/26/21 01/04/23 Unknown Rx inserts nitroglycerin 0.4 mg sublingual 0.4 mg sublingual Q5M PRN chest 04/21/22 01/04/23 Unknown Rx tablet (Nitrostat) pain #25 tabs dicyclomine 10 mg/5 mL oral 20 mg (10 mL) PO BID abdominal 05/14/22 01/04/23 Unknown Rx solution problems/cramping #473 mL furosemide 20 mg tablet (Lasix) 40 mg PO QAM PRN edema & blood 05/14/22 01/04/23 Unknown Rx pressure #60 tabs omeprazole magnesium 20 mg 20 mg PO BID acid reflux #60 caps 05/14/22 01/04/23 Unknown Rx capsule,delayed release potassium chloride 20 mEq 20 meq PO DAILY K replacement #30 05/14/22 01/04/23 Unknown Rx tablet,extended release tabs pen needle, diabetic 32 gauge x #100 ea 05/31/22 01/04/23 Unknown Rx 1/4 (BD Ultra-Fine Micro Pen Needle) blood sugar diagnostic (OneTouch #400 ea 08/25/22 01/04/23 Unknown Rx Verio test strips) naproxen 500 mg tablet,delayed 500 mg PO BID PRN pain #30 tabs 08/25/22 01/04/23 Unknown Rx release (EC-Naproxen) spironolactone 25 mg tablet 25 mg PO QAM edema #30 tabs 08/25/22 01/04/23 Unknown Rx rosuvastatin 20 mg tablet 20 mg PO DAILY #90 tabs 09/14/22 01/04/23 Unknown Rx metoprolol tartrate 25 mg tablet 50 mg PO BID blood pressure 09/28/22 01/04/23 Unknown History levothyroxine 100 mcg tablet See Rx Instructions .Route 10/27/22 01/04/23 Unknown Rx .COMPLEX #30 tabs albuterol sulfate 90 mcg/actuation 2 puff inhalation Q6H PRN 11/19/22 01/04/23 Unknown Rx aerosol inhaler shortness of breath or wheezing #8.5 grams budesonide-formoterol HFA 80 2 puff inhalation BID #10.2 grams 11/19/22 01/04/23 Unknown Rx mcg-4.5 mcg/actuation aerosol inhaler (Symbicort) guaifenesin 600 mg tablet, 600 mg PO BID PRN congestion #30 11/19/22 01/04/23 Unknown Rx extended release 12 hr (Mucinex) tabs dulaglutide 0.75 mg/0.5 mL 0.75 mg (0.5 mL) SUBCUT Q7D 30 11/25/22 01/04/23 Unknown Rx subcutaneous pen injector days #2.5 mL (Trulicity) dulaglutide 1.5 mg/0.5 mL 1.5 mg (0.5 mL) SUBCUT Q7D 30 days 11/25/22 01/04/23 Unknown Rx subcutaneous pen injector #2.5 mL (Trulicity) dulaglutide 3 mg/0.5 mL 3 mg (0.5 mL) SUBCUT Q7D 30 days 11/25/22 01/04/23 Unknown Rx subcutaneous pen injector #2.5 mL (Trulicity) isosorbide mononitrate 30 mg 30 mg PO BID@0700,2200 circulation 12/10/22 01/04/23 Unknown Rx tablet,extended release 24 hr #60 tabs amlodipine 5 mg tablet See Rx Instructions .Route 02/28/23 Unknown Rx .COMPLEX #30 tabs liraglutide 0.6 mg/0.1 mL (18 mg/3 1.8 mg (0.3 mL) SUBCUT DAILY #6 mL 02/28/23 Unknown Rx mL) subcutaneous pen injector (Victoza 2-Johnny) liraglutide 0.6 mg/0.1 mL (18 mg/3 0.6 mg (0.1 mL) SUBCUT DAILY #9 mL 02/28/23 Unknown Rx mL) subcutaneous pen injector (Victoza 3-Johnny) liraglutide 0.6 mg/0.1 mL (18 mg/3 1.2 mg (0.2 mL) SUBCUT DAILY #9 mL 02/28/23 Unknown Rx mL) subcutaneous pen injector (Victoza 3-Johnny) Allergies Allergy/AdvReac Type Severity Reaction Status Date / Time soy Allergy Unknown Unknown Verified 03/16/23 16:18 whey Allergy Unknown Unknown Verified 03/16/23 16:18 Iodinated Contrast Media Allergy Unknown Verified 03/16/23 16:18 Sulfa (Sulfonamide Allergy chest pain Verified 03/16/23 16:18 Antibiotics) walnuts Allergy Intermediate ADR-Cough Uncoded 03/16/23 16:18 PFSH Acute PFSH: Medical History Adult onset hypothyroidism Atherosclerosis of coronary artery of [place] heart without angina pectoris Atypical chest pain Behavior disturbance Chronic cough Chronic diastolic heart failure secondary to coronary artery disease COVID-19 COVID Pos test 04/03/2021 Diabetes type 2, uncontrolled Fall GERD (gastroesophageal reflux disease) Headache History of CVA with residual deficit Left side weakness 08/22/20 Hospital discharge follow-up Hypertension IBS (irritable bowel syndrome) Morbid obesity with BMI of 40.0-44.9, adult Osteoarthritis involving multiple joints on both sides of body Pes planus of both feet PND (post-nasal drip) Umbilical hernia Surgical History History of carpal tunnel surgery Right History of heart artery stent History of shoulder surgery Left Family History Father Anesthesia complication Clotting disorder CAD (coronary artery disease) Dementia Mother Clotting disorder CAD (coronary artery disease) Diabetes Brother Clotting disorder Other Hyperlipidemia Hypertension Denies family history of Chronic kidney disease (CKD) Suicide Bleeding disorder Lung disease Cancer Stroke Social History Smoking and tobacco/nicotine status: never used tobacco/nicotine Second hand smoke exposure: No Alcohol intake: never Substance/Drug Use: never Adopted: No Caregiver/support person: No Lives independently: Yes Household members: none Housing: House Marital status: Number of children: 0 service: No Current occupational status: retired and disabled Pets and animals: Yes Do you think of yourself as: Straight/Heterosexual Current gender identity: Female Vitals/I&O/Wt Last Vital Signs Temp 97.7 F 03/16/23 16:13 Pulse 75 03/16/23 16:13 Resp 17 03/16/23 16:13 BP 145/62 03/16/23 16:57 Pulse Ox 96 03/16/23 16:13 O2 Del Method Room Air 03/16/23 16:13 Weight last 48 hrs Weight 242 lb 3.2 oz Weight 223 lb Physical Exam Narrative: NIH score =3 Vital signs stable. Patient is alert but not cooperative. She will participate in some of the neurological assessment and examination. Patient knew her age and date of and name. She was unable to tell me her age she thought she was either in her 20s or 30s. Patient could tell me the year. Head atraumatic. Neck supple. Cranial nerves II through XII grossly intact. Pupils 3 to 4 mm reactive to light and accommodation. Extraocular movements intact. Throat clear. Motor testing 5/5 bilaterally. There was no ataxia. Deep tendon reflexes Grossly symmetrical. Plantar responses could not be assessed secondary to lack of patient cooperation. Patient sit on the edge of the foot of the bed with her feet on the floor and would not lie on the gurney. Lungs clear. Pulse symmetrical in the upper extremities bilaterally. Data 03/16/23 16:41 03/16/23 16:41 A&P Assessment and plan (1) Acute CVA (cerebrovascular accident): Impression: 1. Acute versus subacute left temporal lobe infarction reported on noncontrast head CT 03/16/2023 2. Receptive aphasia with paraphasias and agitation 3. Clinically patient displays decreased ability to comprehend the seriousness of her illness and in my medical opinion with a reasonable degree of medical certainty, patient is not safe to make formative decisions with regards to her health. In my medical opinion with a reasonably of medical certainty, it is not safe for patient to be released on her own recognizance 4. History of remote stroke 2-1/2 years ago 5. History of ENT procedure 03/14/2023 Plan: 1. Clinically patient displays decreased ability to comprehend the seriousness of her illness and in my medical opinion with a reasonable degree of medical certainty, patient is not able to make formative decisions with regards to her health due to her medical condition. In my medical opinion with a reasonably of medical certainty, it is not safe for patient to be released on her own recognizance 2. Agree with current treatment plan to hold patient in the hospital for observation and treatment since the patient, in my medical opinion with a reasonable degree of medical certainty, is not competent to make formative decisions regarding her health due to her acute illness. 3. Agree with starting aspirin 325 mg p.o. every morning with food with cholesterol-lowering agent per NIH stroke protocol 4. Recommend obtaining carotid duplex study to assess for carotid or vertebral artery stenosis 5. Recommend obtaining 2D echocardiogram with bubble study if not performed in the recent past to assess for embolic source for stroke 6. Note: Since the patient's symptoms were reported to began on 03/14/2023, patient was not a candidate for tenecteplase or thrombectomy Consult Attestations Medical Necessity Statement: Patient evaluated by neurology for acute/subacute stroke Coding Level of Care Code 85854 Diagnoses Acute CVA (cerebrovascular accident) I63.9
[2023-03-16] MEDS: haloperidol inj 5 mg/mL INJ 1 mL IVP (18:37)
--- NOTE | 2023-03-16 19:29 | PC.NURSE ---
PT WAS TRYING TO LEAVE. DR FLORES, NEUROLOGIST, AND MYSELF TRIED TO REDIRECT PT. [employer] BROUGHT IN SERVICE DOG AND PT FINALLY WENT BACK TO ROOM. PT DID PULL IV OUT HERSELF. PT IS CURRENTLY IN ROOM, WITH [employer] AND SERVICE DOG.
--- NOTE | 2023-03-16 19:31 | PC.NURSE ---
PT ALSO WILL NOT ALLOW ME TO LEAVE CARDIAC, BP OR O2 MONITORING ON.
[2023-03-16 20:00] VITALS: BP 99/64; PULSE 68; O2SAT 98
[2023-03-16 21:37] VITALS: BP 173/67; PULSE 60; RESP 18; TEMP 36.7; O2SAT 97
--- NOTE | 2023-03-16 22:00 | PC.NURSE ---
96 Hour Hold Involuntary rights have been read to patient and a copy of the same has been provided to her. CALI Ellis was present at the time of reading and presentation.
[2023-03-16 22:30] VITALS: O2SAT 97
--- NOTE | 2023-03-16 22:30 | P.HP_ITS ---
Providers/Chief Complaint Admitting Physician: Derrek Farr MD Primary Care Provider: Cj Gonzalez MD Chief Complaint: Carlos sent for possible ams History of Present Illness Angelica Acevedo is a 62 year old female with a history of past stroke. She is brought to the ER today by her utility sales and service manager with c/o ? behavior changes starting on 03/14/2023 which have been progressively worsening. Patient has had difficulty communicating and appears confused. Ct head on arrival showed acute stroke in the left temporal area. The patient was uncooperative in the emergency room and repeatedly attempted to leave the emergency department , she was placed on a 96 hr hold in the ER as she did not exhibit capacity to make medical decisions. Neurological exam was notable for confusion, paraphasias and some receptive aphasia. Patient answered some questions appropriately but At other times her answers were incorrect and at times her conversation did not coincide with the questions being presented. She was not a candidate for tenecteplase or thrombectomy given time of onset > 48 hrs. She has been started on aspirin and Lipitor per [facility] stroke protocol.? No further history is available at this time. Review of Systems General: Reports: ROS unobtainable due to medical condition Medications/Allergies Home Medications Medication Instructions Recorded Confirmed Last Taken Type Diabetic shoes with 3 inserts #1 ea 04/28/21 01/04/23 Unknown Rx aspirin 81 mg tablet,delayed 81 mg PO DAILY@2200 circulation 04/28/21 01/04/23 Unknown Rx release #90 tabs pen needle, diabetic 33 gauge x #100 ea 04/28/21 01/04/23 Unknown Rx 5/32 Diabetic shoes with 3 sets of #1 ea 05/26/21 01/04/23 Unknown Rx inserts nitroglycerin 0.4 mg sublingual 0.4 mg sublingual Q5M PRN chest 04/21/22 01/04/23 Unknown Rx tablet (Nitrostat) pain #25 tabs dicyclomine 10 mg/5 mL oral 20 mg (10 mL) PO BID abdominal 05/14/22 01/04/23 Unknown Rx solution problems/cramping #473 mL furosemide 20 mg tablet (Lasix) 40 mg PO QAM PRN edema & blood 05/14/22 01/04/23 Unknown Rx pressure #60 tabs omeprazole magnesium 20 mg 20 mg PO BID acid reflux #60 caps 05/14/22 01/04/23 Unknown Rx capsule,delayed release potassium chloride 20 mEq 20 meq PO DAILY K replacement #30 05/14/22 01/04/23 Unknown Rx tablet,extended release tabs pen needle, diabetic 32 gauge x #100 ea 05/31/22 01/04/23 Unknown Rx 1/4 (BD Ultra-Fine Micro Pen Needle) blood sugar diagnostic (OneTouch #400 ea 08/25/22 01/04/23 Unknown Rx Verio test strips) naproxen 500 mg tablet,delayed 500 mg PO BID PRN pain #30 tabs 08/25/22 01/04/23 Unknown Rx release (EC-Naproxen) spironolactone 25 mg tablet 25 mg PO QAM edema #30 tabs 08/25/22 01/04/23 Unknown Rx rosuvastatin 20 mg tablet 20 mg PO DAILY #90 tabs 09/14/22 01/04/23 Unknown Rx metoprolol tartrate 25 mg tablet 50 mg PO BID blood pressure 09/28/22 01/04/23 Unknown History levothyroxine 100 mcg tablet See Rx Instructions .Route 10/27/22 01/04/23 Unknown Rx .COMPLEX #30 tabs albuterol sulfate 90 mcg/actuation 2 puff inhalation Q6H PRN 11/19/22 01/04/23 Unknown Rx aerosol inhaler shortness of breath or wheezing #8.5 grams budesonide-formoterol HFA 80 2 puff inhalation BID #10.2 grams 11/19/22 01/04/23 Unknown Rx mcg-4.5 mcg/actuation aerosol inhaler (Symbicort) guaifenesin 600 mg tablet, 600 mg PO BID PRN congestion #30 11/19/22 01/04/23 Unknown Rx extended release 12 hr (Mucinex) tabs dulaglutide 0.75 mg/0.5 mL 0.75 mg (0.5 mL) SUBCUT Q7D 30 11/25/22 01/04/23 Unknown Rx subcutaneous pen injector days #2.5 mL (Trulicity) dulaglutide 1.5 mg/0.5 mL 1.5 mg (0.5 mL) SUBCUT Q7D 30 days 11/25/22 01/04/23 Unknown Rx subcutaneous pen injector #2.5 mL (Trulicity) dulaglutide 3 mg/0.5 mL 3 mg (0.5 mL) SUBCUT Q7D 30 days 11/25/22 01/04/23 Unknown Rx subcutaneous pen injector #2.5 mL (Trulicity) isosorbide mononitrate 30 mg 30 mg PO BID@0700,2200 circulation 12/10/22 01/04/23 Unknown Rx tablet,extended release 24 hr #60 tabs amlodipine 5 mg tablet See Rx Instructions .Route 02/28/23 Unknown Rx .COMPLEX #30 tabs liraglutide 0.6 mg/0.1 mL (18 mg/3 1.8 mg (0.3 mL) SUBCUT DAILY #6 mL 02/28/23 Unknown Rx mL) subcutaneous pen injector (Victoza 2-Johnny) liraglutide 0.6 mg/0.1 mL (18 mg/3 0.6 mg (0.1 mL) SUBCUT DAILY #9 mL 02/28/23 Unknown Rx mL) subcutaneous pen injector (Victoza 3-Johnny) liraglutide 0.6 mg/0.1 mL (18 mg/3 1.2 mg (0.2 mL) SUBCUT DAILY #9 mL 02/28/23 Unknown Rx mL) subcutaneous pen injector (Victoza 3-Johnny) Allergies Allergy/AdvReac Type Severity Reaction Status Date / Time soy Allergy Unknown Unknown Verified 03/16/23 16:18 whey Allergy Unknown Unknown Verified 03/16/23 16:18 Iodinated Contrast Media Allergy Unknown Verified 03/16/23 16:18 Sulfa (Sulfonamide Allergy chest pain Verified 03/16/23 16:18 Antibiotics) walnuts Allergy Intermediate ADR-Cough Uncoded 03/16/23 16:18 PFSH Acute 2 PFSH: Medical History Adult onset hypothyroidism Atherosclerosis of coronary artery of [place] without angina pectoris Atypical chest pain Behavior disturbance Chronic cough Chronic diastolic heart failure secondary to coronary artery disease COVID-19 COVID Pos test 04/03/2021 Diabetes type 2, uncontrolled Fall GERD (gastroesophageal reflux disease) Headache History of CVA with residual deficit Left side weakness 08/22/20 Hospital discharge follow-up Hypertension IBS (irritable bowel syndrome) Morbid obesity with BMI of 40.0-44.9, adult Osteoarthritis involving multiple joints on both sides of body Pes planus of both feet PND (post-nasal drip) Umbilical hernia Surgical History History of carpal tunnel surgery Right History of heart artery stent History of shoulder surgery Left Family History Father Anesthesia complication Clotting disorder CAD (coronary artery disease) Dementia Mother Clotting disorder CAD (coronary artery disease) Diabetes Brother Clotting disorder Other Hyperlipidemia Hypertension Denies family history of Chronic kidney disease (CKD) Suicide Bleeding disorder Lung disease Cancer Stroke Social History Smoking and tobacco/nicotine status: never used tobacco/nicotine Second hand smoke exposure: No Alcohol intake: never Substance/Drug Use: never Adopted: No Caregiver/support person: No Lives independently: Yes Household members: none Housing: House Marital status: Number of children: 0 service: No Current occupational status: retired and disabled Pets and animals: Yes Do you think of yourself as: Straight/Heterosexual Current gender identity: Female Vitals/I&O/Wt Last Vital Signs Temp 98.2 F 03/17/23 00:00 Pulse 62 03/17/23 00:00 Resp 15 03/17/23 00:00 BP 155/61 03/17/23 00:00 Pulse Ox 97 03/17/23 00:00 O2 Del Method Room Air 03/17/23 00:00 03/16/23 03/16/23 03/17/23 14:59 22:59 06:59 Output Total 0 / 0 Balance 0 / 0 Weight last 48 hrs Weight 109.86 kg Weight 101.151 kg Physical Exam Narrative: General: No acute distress, AO x1 HEENT: PERRLA, pupils bilaterally equal and reactive, pallors not present Chest: Normal vesicular breath sounds, no added sounds, equal good air entry bilaterally CVS: S1-S2 regular, no murmurs, no tachycardia, no gallops, no rubs Abdomen: Soft, nontender, no organomegaly, bowel sounds present Neuro: confused, dysarthria, aphasia, able to ambulate independently Data 03/16/23 16:41 03/16/23 16:41 Other Labs: Launch?Image [facility] [address] [place] [address] CT Scan Report Signed with [place] Patient: Angelica Acevedo Unit #: [id number] : 1960 Age/Sex: 62 / F ADM Date: 03/16/23 Loc: ER Room/Bed: Attending Dr: Ordering Provider/Ordering MD: Jefferson Henao MD Date of Service: 03/16/23 Procedure(s): CT head wo con* [id number] Accession Number(s): [id number] Report Number: [id number]/CT head wo con* [id number] THIS REPORT CONTAINS FINDINGS THAT MAY BE CRITICAL TO PATIENT CARE. The findings were verbally communicated via telephone conference with JEFFERSON Vera at 5:28 PM CDT on 03/16/2023. The findings were acknowledged and understood. ? Addendum Dictated By: ?Julio Strong MD Addendum Signed By: ?Julio Strong MD Signed Date/Time: 03/16/231729 Addendum Cosigned By: ? PROCEDURE INFORMATION: Exam: CT Head Without Contrast Exam date and time: 03/16/2023 4:52 PM Age: 62 years old Clinical indication: Altered mental status/memory loss; Additional info: AMS, onset 2 days ago--expressive aphasia TECHNIQUE: Imaging protocol: Computed tomography of the head without contrast. Radiation optimization: All CT scans at this facility use at least one of these dose optimization techniques: automated exposure control; mA and/or kV adjustment per patient size (includes targeted exams where dose is matched to clinical indication); or iterative reconstruction. REPORTING DATA: Count of CT and Cardiac NM exams in prior 12 months: This patient has received 4 known CTs and 0 known cardiac nuclear medicine studies in the 12 months prior to the current study. COMPARISON: CT head wo con* [id number] 10/26/2022 12:19 PM RADIATION DOSE METRICS: Total DLP (mGy-cm): 1022 FINDINGS: Brain: There is new asymmetric hypodensity in the left temporal lobe for example on series 5, image number 15 and series 13, image number 8 suspicious for possible ischemia given history. No hemorrhage. No midline shift or mass effect. Cerebral ventricles: No ventriculomegaly. Paranasal sinuses: No significant inflammation. No fluid levels. Mastoid air cells: Visualized mastoid air cells are well aerated. Bones/joints: Unremarkable. No acute fracture. Soft tissues: Unremarkable. CT/CT head wo con* [id number] IMPRESSION: New asymmetric hypodensity is seen in the left temporal lobe suspicious for possible acute ischemia given history. Recommend MRI brain correlation. A&P Assessment and plan (1) Acute CVA (cerebrovascular accident): Plan Admit the patient to [facility] for close neuro monitoring She is not a tPA candidate due to unknown onset of symptoms Continue telemetry monitoring on the unit to evaluate for underlying arrhythmias. CT head concerning for acute stroke CTA head and neck unable to be performed due to anaphylaxis to iodinated contrast MRA head and neck in am as recommended by neurology Echocardiogram ordered and pending Start aspirin 325 mg daily Atorvastatin 40 mg daily Continue metoprolol and imdur PT OT speech therapy assessment on 96 hr hold per neurology recommendation, lacks capacity for decision making at this time Attestations Medical Necessity Statement*: > 2 midnight admission is anticipated for acute CVA management Coding Level of Care Code Acute Code for Chg Fwd High MDM includes number and complexity of problems actively addressed during encounter, amount and/or complexity of data reviewed/ordered and described risk of complication, morbidity or mortality of management as documented Diagnoses Acute CVA (cerebrovascular accident) I63.9
[2023-03-16 22:47] LABS: Procalcitonin 0.04 ng/mL (0-0.5)
[2023-03-16 22:55] LABS: Iron 53 ug/dL (37-145); Percent Saturation 15.7 % (20-50); Total Iron Binding Capacity 337 mcg/dl; Unsaturated Iron Binding 284 ug/dL (112-347); Vitamin B12 264 pg/mL (232-1245)
[2023-03-16 23:43] LABS: Ammonia 24 umol/L (11-51)
[2023-03-17] VITALS: BP 155/61; PULSE 62; RESP 15; TEMP 36.8; O2SAT 97
--- NOTE | 2023-03-17 | USCV_ITS ---
Angelica Acevedo Age: 62 Gender: F : 1960 Exam Date: 03/17/2023 15:20 Ordering Phys: Derrek Farr MD Technologist: Exam Location: [facility] [place] Indication: cva BP: 132 / 74 HR: 74 Rhythm: Sinus Technical Quality: Poor because of body habitus MEASUREMENTS (Male / Female) Normal Values 2D ECHO LV Diastolic Diameter PLAX 3.3 cm 4.2 - 5.9 / 3.9 - 5.3 cm LV Systolic Diameter PLAX 2.1 cm IVS Diastolic Thickness 1.2 cm 0.6 - 1.0 / 0.6 - 0.9 cm IVS Systolic Thickness 1.8 cm LVPW Diastolic Thickness 1.2 cm 0.6 - 1.0 / 0.6 - 0.9 cm LVPW Systolic Thickness 1.7 cm LVOT Diameter 2.2 cm LV Ejection Fraction 2D Teich 67.0 % LV Ejection Fraction MOD 2C 69.9 % LV Ejection Fraction 2C AL 70.6 % LA Diameter 4.0 cm M-MODE Aortic Annulus Diameter 3.4 cm LA Ao Ratio MM 1.4 MV E Point Septal Separation 1.2 cm DOPPLER AV Peak Velocity 153.0 cm/s LVOT Peak Velocity 92.0 cm/s AV Area Cont Eq vti 2.6 cm squared AV Area Cont Eq pk 2.3 cm squared MV Area PHT 5.1 cm squared Mitral E to A Ratio 1.2 MV E' Velocity 42.5 cm/s Mitral E to MV E' Ratio 12.1 Mitral E to LV E' Lateral Ratio 11.7 Mitral E to LV E' Septal Ratio 12.7 TR Peak Velocity 140.0 cm/s TR Peak Gradient 7.8 mmHg TV Peak E Velocity 72.0 cm/s Right Atrial Pressure 3.0 mmHg Pulmonary Artery Systolic Pressu 10.8 mmHg FINDINGS Left Ventricle Technically limited quality echocardiogram. Left ventricle is normal in size. LV systolic function is normal with EF of 55- 60%. No regional wall motion abnormalities are seen. Right Ventricle Normal in size and function Right Atrium Normal in size Left Atrium Normal in size Mitral Valve Mild mitral regurgitation. Aortic Valve Structurally normal aortic valve. No significant stenosis or regurgitation. Tricuspid Valve Trace tricuspid regurgitation. Insufficient TR jet to calculate RVSP Pulmonic Valve Not well visualized Pericardium Normal Aorta Normal in size IVC Not well visualized CONCLUSIONS Technically limited quality echocardiogram LV systolic function is normal with EF of 55-60%. Mild mitral regurgitation Trace tricuspid regurgitation Compared to prior echocardiogram from 2020, no significant changes are seen David Mcnamara MD (Electronically Signed) Final Date: 18 March 2023 10:46 S
[2023-03-17 00:06] LABS: Rapid Plasma Reagin Syphilis Nonreactive (Nonreactive)
--- NOTE | 2023-03-17 06:24 | PC.NURSE ---
Patient refusing all care at this time. When attempting to start IV patient states she is going home and doesn't need it. Attempted to take vitals this morning without success. Patient also refused school bus monitor. 1:1 sitter in room.
--- NOTE | 2023-03-17 08:24 | PC.PHAR ---
pt unable to verify medications-asked pt to verify her name she stated no im going home and refused to verify her name-medications entered are from what [facility] states they have filled recently and what was on a previously entered med list-[facility] states the pt told them before that the trulicity was dced and changed to victoza-[facility] states the pt had a rosuvastatin 20mg daily states last time filled was 09/22/22 30d/s no refills-notes are made in the pharmacy comments with last filled dates and if it was on a previously entered med list
[2023-03-17] MEDS: haloperidol inj 5 mg/mL INJ 1 mL IM (09:37)
--- NOTE | 2023-03-17 10:34 | PC.CHAP ---
Pastoral Care Encounter/Spiritual Assessment Type of Contact [] Declined mobile manager visit [] Patient/Family/Request visit [] Outpatient visit [] Follow-up visit [] Physician referral [] Code/Alert [x] Routine visit [] Staff referral [] Actively dying [] Patient sleeping [] Family support [] [] Out of room [] Palliative care [] [x] Receiving care in room [] Pre-surgical visit [] Trauma [] Long length of stay [] ICU visit [] Other: Relational/Emotional Strength [x] Patient feels connected with others/family/visitors/staff [] Distress [] Loneliness/isolation [] Abandonment Spirituality of Patient [x] Person of Sandie [] Attends Yazdanism of their Sandie [x] Believes in Prayer [] Reads Bible or Latter Day materials [] There are Spiritual issues to be addressed Prop Attendant Interventions [x] Prayer [x] Active listening [x] Non-anxious presence [x] Spiritual/emotional support [] Crisis/trauma care [x] Spiritual counseling [] Bereavement support [] Provided bereavement packet [] Provided Bible/devotional materials [] Provided toy/stuffed animal, coloring book to patient or family member [] Provided Communion [] Anointing/[place] [] Salvation [x] Completed spiritual assessment [] Other: Impact on Illness or Injury [] Angry [] Fearful [] Anxious [] Often cries [] Exhaustion [] Unable to work [] Unable to attend rastafarian [] Unable to walk/stand [] Unable to read [] Unable to drive [] Unable to eat/drink [] Unable to sleep [] Unable to be with family [] Patient intubated [] Other: Summary negetive response not sure about his health waiting doctor staff care doeswn't know when he well go home Time spent with patient 10 mins
--- NOTE | 2023-03-17 11:05 | XRR_ITS ---
PROCEDURE INFORMATION: Exam: XR Abdomen, MR Screening Exam date and time: 03/17/2023 12:26 PM Age: 62 years old Clinical indication: Screening exam; Other: Screening for mri TECHNIQUE: Imaging protocol: abdomen and pelvis. Exam was performed for MR screening. Views: 1 view. Total images: 1 COMPARISON: CT abdomen pelvis w con* [id number] 07/11/2017 9:45 AM FINDINGS: Gastrointestinal tract: Bowel gas pattern is nondistended and nonobstructive. Bones/joints: Unremarkable. Soft tissues: No radio-dense foreign body. Radiopaque device or foreign body: None. No evidence of device or foreign body. No visible contraindication to MRI on this exam. Other findings: Mild stool burden. XR/XR KUB portable [id number] IMPRESSION: 1. Normal bowel gas pattern 2. Mild stool burden. 3. No radio-dense foreign body.
--- NOTE | 2023-03-17 11:05 | XRR_ITS ---
PROCEDURE INFORMATION: Exam: XR Chest Exam date and time: 03/17/2023 12:23 PM Age: 62 years old Clinical indication: Screening exam; Other screening; Additional info: Screening for mri TECHNIQUE: Imaging protocol: Radiologic exam of the chest. Views: 1 view. Total images: 58 COMPARISON: CR XR chest 2V* [id number] 09/10/2022 8:26 AM FINDINGS: Lungs: Unremarkable. No consolidation. Pleural spaces: Unremarkable. No pleural effusion. No pneumothorax. Heart/Mediastinum: Unremarkable. No cardiomegaly. Bones/joints: Unremarkable. Soft tissues: Soft tissue anchor in the left humeral head. XR/XR chest 1V portable [id number] IMPRESSION: No acute findings.
[2023-03-17 11:13] LABS: Glucose Point of Care 143 mg/dL (70-110)
[2023-03-17 11:25] LABS: Basophils % 0.4 %; Eosinophils # 0.1 10^3/uL (0.0-0.8); Eosinophils % 0.7 %; Hematocrit 42.8 % (36-47); Mean Corpuscular HGB Conc 33.9 g/dL (30-55); Mean Corpuscular Hemoglobin 30.3 pg (27-33); Mean Corpuscular Volume 89.4 fl (85-98); Mean Platelet Volume 9.6 fL (7.4-10.4); Monocytes # 0.6 10^3/uL (0.2-0.9); Monocytes % 6.8 %; Neutrophils # 7.22 10^3/uL (1.8-7.7); Neutrophils % 80.8 %; Nucleated Red Blood Cells % 0 %; Platelet Count 318 10^3/cmm (157-399); Red Blood Count 4.79 10^6/uL (3.85-5.65); Red Cell Distribution Width 12.2 % (12.1-15.1); White Blood Count 8.94 10^3/uL (3.29-11.43)
[2023-03-17 11:56] LABS: Alanine Aminotransferase 9 U/L (0-33); Alkaline Phosphatase 76 U/L (35-105); Blood Urea Nitrogen 20 mg/dL (8-23); Calcium 9.2 mg/dL (8.5-10.5); Carbon Dioxide 21 mmol/L (22-29); Chloride 101 mmol/L (98-107); Creatinine Clr Calc Pharmacy 73.7756; Globulin 3.5 g/dL (1.3-4.6); Glucose 132 mg/dL (65-115); Magnesium 2.1 mg/dL (1.7-2.3); Osmolality Calculated 282 mOsm/kg (285-295); Phosphorus 2.7 mg/dL (2.5-4.5); Sodium 134 mmol/L (136-145); Total Bilirubin 0.6 mg/dL (0.15-1.2); Total Protein 7.5 g/dL (6.6-8.7)
[2023-03-17] MEDS: LORazepam 2 mg/mL INJ 1 mL IM (11:57)
[2023-03-17 12:11] LABS: Anion Gap 16.6 (5-19); Aspartate Amino Transferase 17 U/L (0-32); Potassium 4.6 mmol/L (3.5-5.1)
[2023-03-17] MEDS: insulin lispro 100 unit/1 mL SUBCUT (12:45)
[2023-03-17 12:47] LABS: Folate Level > 20.0 ng/mL (4.8-37.3)
--- NOTE | 2023-03-17 13:31 | P.PN_ITS ---
Subjective Subjective: H&P and labs appreciated. Patient admitted last night. Examination seen with sitter at bedside. Patient is awake and alert. She is alert to self, date and month of her birthday but is not able to tell the year of her birthday, current place, her address. She tells me that she lives by herself and usually she takes care of her own ADLs. States car friend/bereavement coordinator will help her. Patient has been refusing most of her medications, IV line placement. She has been asking to go home. Vitals/I&O/Wt Last Vital Signs Temp 98.2 F 03/17/23 00:00 Pulse 62 03/17/23 00:00 Resp 15 03/17/23 00:00 BP 155/61 03/17/23 00:00 Pulse Ox 97 03/17/23 00:00 O2 Del Method Room Air 03/17/23 00:00 03/16/23 03/17/23 03/17/23 22:59 06:59 14:59 Intake Total 240 / 240 Output Total 0 / 0 Balance 0 / 0 240 / 240 Weight last 48 hrs Weight 109.86 kg Weight 101.151 kg Physical Exam Narrative: General: No acute distress, AO x 1-2, anxious HEENT: PERRLA, pupils bilaterally equal and reactive Chest: Normal vesicular breath sounds, with patient rhonchi lower lung field, equal good air entry bilaterally CVS: S1-S2 regular, no murmurs, no tachycardia, no gallops, no rubs Abdomen: Soft, nontender, no organomegaly, bowel sounds present Neuro: No focal deficits, power 5/5 in all limbs, able to ambulate by herself, expressive aphasia, confusion, dysarthria present Data 03/17/23 11:15 03/17/23 11:15 A&P Assessment and plan (1) Acute CVA (cerebrovascular accident): (2) Altered mental status: (3) Diabetes type 2, uncontrolled: (4) Mixed hyperlipidemia due to type 2 diabetes mellitus: (5) Atherosclerotic heart disease of [place] coronary artery with other forms of angina pectoris: (6) Morbid obesity with BMI of 40.0-44.9, adult: (7) Cognitive changes: Plan Altered mental status: In setting of acute CVA. Seen on CT head. Appreciate neurology recommendations. As per neurology evaluation she has been deemed not to be able to make her own reliable medical decision currently. Placed on 96-hour hold by ER physician. Sitter at bedside. Haldol 5 mg IM every 4 hours as needed, add Zyprexa Zydis 5 mg oral daily, Zyprexa IM as needed. Continue with aspirin 325 mg daily, statin. Permissible hypertension. Check echocardiogram, carotid Doppler. MRI and MRA head awaited. Not able to get CTA as patient is allergic to contrast. PT/OT/speech evaluation. Advance diet accordingly. For now continue with clear liquid diet. Type 2 diabetes mellitus: Recent A1c 7.1. Continue with insulin sliding scale. History of CAD: Denies of any active chest pain. Echocardiogram as above. Continue with aspirin, statin, beta-bryon. Hypertension: Permissive hypertension for now. We will restart antihypertensives as per goal blood pressures. Continue other chronic medications. Discharge plan: Patient lives by herself. As per the patient she does not have any family. Caregiver noted to be her bereavement coordinator who brought her to the hospital. Unfortunately patient has significant cognitive decline because of the stroke and has been deemed to be not be able to take care of her own needs currently. Will need to continue to monitor. If patient continues to remain without any improvement in cognition she would most likely need placement to SNF and possibly guardianship. Currently on 96-hour hold. Full code Clear liquid diet Heparin 5000 every 12 hourly for DVT prophylaxis Protonix for PUD prophylaxis. Attestations Medical Necessity Statement*: Requires further hospitalization for management of severe cognition decline in setting of acute CVA while safe discharge planning is sought, 96-hour hold Diagnoses Acute CVA (cerebrovascular accident) I63.9 Altered mental status R41.82 Diabetes type 2, uncontrolled Mixed hyperlipidemia due to type 2 diabetes mellitus E11.69; E78.2 Atherosclerotic heart disease of [place] coronary artery with other forms of a ngina pectoris I25.118 Morbid obesity with BMI of 40.0-44.9, adult E66.01; Z68.41 Cognitive changes R41.89
--- NOTE | 2023-03-17 13:34 | USCV_ITS ---
Angelica Acevedo Age: 62 Gender: F : 1960 Exam Date: 03/17/2023 15:35 Ordering Phys: Derrek Farr MD Technologist: Dano Villela Exam Location: [facility] [place] Indication: stroke Risk Factors: Previous Vascular Surgery: Right Brachial BP: / Left Brachial BP: / Right Left Velocity (cm/s) Spectral Plaque Velocity (cm/s) Spectral Plaque Syst/Diast Broadening Syst/Diast Broadening 80.50/ 14.30 Prox CCA 111.10/ 51.90 61.70/ 13.20 Mid CCA 77.60 / 18.40 78.30/ 15.40 Distal CCA 114.40/ 15.80 71.70/ 19.80 Prox ICA 82.80 / 19.70 78.30/ 17.60 Mid ICA 77.60 / 18.40 70.60/ 20.90 Distal ICA 99.90 / 23.70 109.20 ECA 132.80 0.97 ICA/CCA 0.87 Antegrade Vertebral Antegrade 38.50/ 6.40 cm/s 76.20/ 17.10 cm/s Tri Subclavian Tri 126.2 156.4 0 0 CONCLUSIONS Right ICA stenosis <50%. Left ICA stenosis <50%. Normal antegrade Doppler flow noted in the right vertebral artery. Normal antegrade Doppler flow noted in the left vertebral artery. Brandon Emmanuel MD (Electronically Signed) Final Date: 17 March 2023 16:40 S
--- NOTE | 2023-03-17 13:34 | USCV_ITS ---
Angelica Acevedo Age: 62 Gender: F : 1960 Exam Date: 03/17/2023 15:35 Ordering Phys: Derrek Farr MD Technologist: Dano V[place]la [place] [facility] [place]: [place] Risk Factors: Previous Vascular Surgery: Right Brachial BP: / Left Brachial BP: / Right Left Velocity (cm/s) Spectral Plaque Velocity (cm/s) Spectral Plaque Syst/Diast Broadening Syst/Diast Broadening 80.50/ 14.30 Prox CCA 111.10/ 51.90 61.70/ 13.20 Mid CCA 77.60 / 18.40 78.30/ 15.40 Distal CCA 114.40/ 15.80 71.70/ 19.80 Prox ICA 82.80 / 19.70 78.30/ 17.60 Mid ICA 77.60 / 18.40 70.60/ 20.90 Distal ICA 99.90 / 23.70 109.20 ECA 132.80 0.97 ICA/CCA 0.87 Antegrade Vertebral Antegrade 38.50/ 6.40 cm/s 76.20/ 17.10 cm/s Tri Subclavian Tri 126.2 156.4 0 0 CONCLUSIONS Right ICA stenosis <50%. Left ICA stenosis <50%. Normal antegrade Doppler flow noted in the right vertebral artery. Normal antegrade Doppler flow noted in the left vertebral artery. Brandon Emmanuel MD (Electronically Signed) Final Date: 17 March 2023 16:40 S
--- NOTE | 2023-03-17 15:07 | P.PN_ITS ---
Subjective Subjective: History of Present Illness Angelica Acevedo is a 62 year old female with a history of a remote stroke 2-1/2 years ago.? Approximately 2 days prior to presenting to the [facility] e mergency room the patient was reported to display strange behavior on 03/14/2023. On 03/15/2023 the patient was reported to display more strange behavior associated with trouble communicating.? Today the patient's symptoms were reported to be worse and the patient's registration scheduling specialist had the patient brought to [facility] emergency room for evaluation.? Noncontrast head CT performed on 03/16/2023 revealed acute stroke in the left temporal area. The patient was uncooperative in the emergency room and repeatedly attempted to leave the emergency department throughout? emergency room physician's evaluation as well as during my neurological evaluation.? She displayed played intermittent confusion During the neurological assessment and during questioning. The patient displayed paraphasias and some receptive aphasia. Patient answered some questions appropriately but At other times her answers were incorrect and at times her conversation did not coincide with the questions being presented. The patient was walking up and down the hallway and security had to be called.? Patient repeatedly was attempting to leave through the locked exit door. The patient stated that she had to get home to her support animal. In view of the patient's report of change in her mental status 2 days prior to presenting to the [facility] emergency room, patient was not a candidate for tenecteplase or thrombectomy. The patient is also severely allergic to IV contrast dye which resulted in anaphylactic type reaction with respiratory/airway closure, CT angiogram could not be obtained.? I was informed by the ER physician that MRA with gadolinium can be performed in the morning of 03/17/2023.? But patient may not be cooperative for the study.? I recommend the patient Not be released from the hospital secondary to potential harm to self.? I recommended obtaining carotid duplex study or MRA of the great vessels of the neck on 03/17/2023 and started aspirin and Lipitor per NIH stroke protocol.? Also I recommended patient undergo 2D echocardiogram and I agreed with using sedation temporarily to keep patient from potentially harming herself and prevent patient from removing her IV Hep-Lock. This afternoon the patient appears to be slightly better. She is visiting with her friend with a friend. Patient is sitting in the chair next to her bed. She is not agitated and in no apparent distress. Still has some mental processing issues she stated she is aware that something has happened to her health and she needs to see a doctor. She could not tell me that she had a stroke. She did know she was in the hospital. Patient recognized her friend. She thought the year was 2002. She could not tell me h er age but she could tell me her full name. Patient did remember her dog's name. Past medical history: Cerebral infarction 2-1/2 years ago ENT procedure 03/14/2023 Diabetes mellitus Drug allergies: Iodinated contrast medium which resulted in anaphylactic type reaction Sulfonamide antibiotics which resulted in chest pain Walnuts which resulted in a cough Soy type reaction unknown Whey type of reaction unknown Outpatient medications on the formulary:(Note due to the patient's current medical condition the medications could not be reconciled) Norvasc 5 mg p.o. daily Aspirin 81 mg p.o. daily Albuterol 90 mcg per accusation 2 puffs every 6 hours as needed Dicyclomine 20 mg p.o. twice daily Dulagutide 0.5 mg subcutaneously every 7 days Lasix 40 mg p.o. daily Nitroglycerin 0.4 mg sublingual as needed Spironolactone 25 mg p.o. every morning Crestor 20 mg p.o. daily Metoprolol 50 mg p.o. twice daily Isosorbide mononitrate 30 mg p.o. twice a day Habits: Unknown Family history: Unable to obtain secondary to patient's change in mental status and agitation Social history: Patient reports that she lives alone with her support dog Vitals/I&O/Wt Last Vital Signs Temp 98.2 F 03/17/23 00:00 Pulse 62 03/17/23 00:00 Resp 15 03/17/23 00:00 BP 155/61 03/17/23 00:00 Pulse Ox 97 03/17/23 00:00 O2 Del Method Room Air 03/17/23 00:00 03/17/23 03/17/23 03/17/23 06:59 14:59 22:59 Intake Total 240 / 240 Balance 240 / 240 Weight last 48 hrs Weight 242 lb 3.2 oz Weight 223 lb Physical Exam Const: OTHER: Vital signs stable.? Patient is alert and more cooperative.The patient is sitting in the recliner next to her bed talking to a friend who came to visit. Patient recognized a friend. Patient still displaying some paraphasia But receptive aphasia has improved.? Patient could not tell me her age or her date of .?? Patient she could tell me the current year and her full name.? Head atraumatic.? Neck supple.? Cranial nerves II through XII grossly intact.? Pupils 3 to 4 mm reactive to light and accommodation.? Extraocular movements intact.? Throat clear.? Motor testing 5/5 bilaterally.? There was no ataxia.? Deep tendon reflexes grossly symmetrical.? Lungs clear.? Pulse symmetrical in the upper ext remities bilaterally. Data 03/17/23 11:15 03/17/23 11:15 A&P Assessment and plan (1) Acute CVA (cerebrovascular accident): Impression: 1. Acute versus subacute left temporal lobe infarction reported on noncontrast head CT 03/16/2023 2. Receptive aphasia with paraphasias and agitation, improving 3. Clinically patient still displays decreased ability to comprehend the seriousness of her illness and in my medical opinion with a reasonable degree of medical certainty, patient is not safe to make formative decisions with regards to her health. In my medical opinion with a reasonably of medical certainty, it is not safe for patient to be released on her own recognizance 4. History of remote stroke 2-1/2 years ago 5. History of ENT procedure 03/14/2023 Plan: 1.? Clinically patient still displays decreased ability to comprehend the john usness of her illness and in my medical opinion with a reasonable degree of medical certainty, the patient is not able to make formative decisions with regards to her health due to her medical condition. In my medical opinion with a reasonably of medical certainty, it is not safe for patient to be released on her own recognizance 2. Agree with current treatment plan to hold patient in the hospital for observation and treatment since the patient, in my medical opinion with a reasonable degree of medical certainty, is not competent to make formative decisions regarding her health due to her acute illness. 3. Agree with starting aspirin 325 mg p.o. every morning with food with cholesterol-lowering agent per NIH stroke protocol 4. Recommend obtaining carotid duplex study to assess for carotid or vertebral artery stenosis 5. Recommend obtaining 2D echocardiogram with bubble study if not performed in the recent past to assess for embolic source for stroke 6. Note: Since the patient's symptoms were reported to began on 03/14/2023, patient was not a candidate for tenecteplase or thrombectomy 7. Agree with obtaining head MRI 8. Recommend social service and Neuropsychological evaluation to Further assess mental process and competency if not already ordered (2) Cognitive changes: Attestations Medical Necessity Statement*: Patient seen by neurology in follow-up for left temporal lobe stroke and decreased mental processing ability Coding Level of Care Code 85351 Diagnoses Acute CVA (cerebrovascular accident) I63.9 Cognitive changes R41.89
[2023-03-17 16:00] VITALS: BP 152/79; PULSE 78; RESP 17; TEMP 36.7; O2SAT 94
[2023-03-17 17:00] LABS: Glucose Point of Care 117 mg/dL (70-110)
[2023-03-17] MEDS: sodium chloride 0.9% 1,000 ML 75 ML IV (19:30)
--- NOTE | 2023-03-17 19:57 | PC.NURSE ---
Patient friend at bedside and was able to provide information on patient brother Wallace camacho telephone number [phone]. The brother is said to becoming to visit the patient either tonight or tomorrow and is active in the patients life.
[2023-03-17 20:00] VITALS: PULSE 63; RESP 14; O2SAT 92
[2023-03-17 20:22] LABS: Amphetamines Screen Urine Negative (Negative); Barbiturates Screen Urine Negative (Negative); Benzodiazepines Screen Urine Positive (Negative); Cocaine Screen Urine Negative (Negative); Opiate Screen Urine Negative (Negative); PCP Screen Urine Negative (Negative); THC Screen Urine Negative (Negative)
[2023-03-17 20:23] LABS: Add Urine Microscopic? YES; Bilirubin Urine Neg (Negative); Blood Urine Neg (Negative); Glucose Urine UA Norm (Normal); Ketones Urine Negative (Negative); Leukocyte Esterase Urine Trace (Negative); Nitrate Urine Negative (Negative); Protein Urine 2+ (Negative); Specific Gravity, Urine 1.015 (1.005-1.030); Urine Appearance Hazy (CLEAR); Urine Color Light yellow (Yellow); Urobilinogen Urine Neg (Negative); pH Urine 5 (5-7)
[2023-03-17 20:24] LABS: Add Urine Culture? No; Bacteria Urine 2+ /hpf; Mucus Urine 2+ /hpf
[2023-03-17] MEDS: metoprolol tartrate 50 mg Tablet PO (20:41)
[2023-03-17] MEDS: pantoprazole 40 mg SDV IVP (20:42)
[2023-03-18 03:31] VITALS: BP 184/83; PULSE 71; RESP 16; TEMP 36.8; O2SAT 96
[2023-03-18 07:04] LABS: Glucose Point of Care 94 mg/dL (70-110)
--- NOTE | 2023-03-18 07:25 | MR_ITS ---
WS: [id number] MRA ANGIOGRAPHY [place] HISTORY: stroke COMPARISON: None available. TECHNIQUE: 3-D MR angiography is performed of the [place]. All images are reviewed including source images. Nondiagnostic evaluation of the [place]. Significant motion artifact. Patient was unable to remain still for this examination. IMPRESSION: Nondiagnostic evaluation of the [place].
[2023-03-18] MEDS: haloperidol inj 5 mg/mL INJ 1 mL IM ×2 (07:57→11:45)
[2023-03-18] MEDS: metoprolol tartrate 50 mg Tablet PO (07:58)
[2023-03-18] MEDS: isosorbide mononitrate ER 30 mg Tablet PO ×2 (07:58→17:34)
[2023-03-18] MEDS: aspirin 325 mg Tablet PO (07:58)
[2023-03-18 08:17] VITALS: BP 161/73; PULSE 56; RESP 18; TEMP 36.6; O2SAT 94
[2023-03-18] MEDS: OLANZapine 10 mg VIAL 5 MG IM (08:32)
[2023-03-18 10:00] VITALS: BMI 44.3
[2023-03-18 11:37] LABS: Glucose Point of Care 132 mg/dL (70-110)
[2023-03-18] MEDS: LORazepam 2 mg/mL INJ 1 mL IVP (11:45)
[2023-03-18] MEDS: sodium chloride 0.9% 1,000 ML 75 ML IV (11:48)
[2023-03-18] MEDS: heparin 5,000 unit/mL INJ 1 mL 5000 UNIT SUBCUT (11:52)
[2023-03-18 12:29] VITALS: BP 104/54; PULSE 53; RESP 16; TEMP 37.1; O2SAT 90
--- NOTE | 2023-03-18 14:08 | PM.PN ---
Subjective Subjective: No acute events overnight. Patient seems to be slightly more cooperative and alert today. She is alert to self, place and date of . Still finding it difficult to get words together, confused but more compliant with treatment. Patient's friend and sitter at bedside. Plan for MRI later in the day. Patient is nervous about the MRI. Will need premedication. Has remained hemodynamically stable and afebrile. Vitals/I&O/Wt Last Vital Signs Temp 98.7 F 03/18/23 12:29 Pulse 53 L 03/18/23 12:29 Resp 16 03/18/23 12:29 BP 104/54 03/18/23 12:29 Pulse Ox 90 03/18/23 12:29 O2 Del Method Room Air 03/18/23 12:29 03/17/23 03/18/23 03/18/23 22:59 06:59 14:59 Intake Total 240 / 480 1600 / 1600 Output Total 100 / 100 200 / 300 850 / 850 Balance 140 / 380 -200 / 180 750 / 750 Weight last 48 hrs Weight 109.86 kg Weight 109.86 kg Weight 101.151 kg Physical Exam Narrative: General: No acute distress, AO x 2, alert te self, , place, less anxious HEENT: PERRLA, pupils bilaterally equal and reactive Chest: Normal vesicular breath sounds, with patient rhonchi lower lung field, equal good air entry bilaterally CVS: S1-S2 regular, no murmurs, no tachycardia, no gallops, no rubs Abdomen: Soft, nontender, no organomegaly, bowel sounds present Neuro: No focal deficits, power 5/5 in all limbs, able to ambulate by herself, expressive aphasia, confusion, dysarthria present Data 03/17/23 11:15 03/17/23 11:15 A&P Assessment and plan (1) Acute CVA (cerebrovascular accident): (2) Altered mental status: (3) Diabetes type 2, uncontrolled: (4) Mixed hyperlipidemia due to type 2 diabetes mellitus: (5) Atherosclerotic heart disease of [place] coronary artery with other forms of angina pectoris: (6) Morbid obesity with BMI of 40.0-44.9, adult: (7) Cognitive changes: Plan Altered mental status: In setting of acute CVA. Seen on CT head. Appreciate neurology recommendations. Plan for MRI later in the day today though would be difficult as patient is not able to follow commands and is nervous about the same. As per neurology evaluation she has been deemed not to be able to make her own reliable medical decision currently. Placed on 96-hour hold by ER physician. Sitter at bedside. Haldol 5 mg IM every 4 hours as needed, add Zyprexa Zydis 5 mg oral daily, Zyprexa IM as needed. Continue with aspirin 325 mg daily, statin. Blood pressure to be at goal of 140/90 now. Appreciate carotid Doppler, echocardiogram. Not able to get CTA as patient is allergic to contrast. PT/OT/speech evaluation. Advance diet accordingly. Currently on dysphagia level 6 carb consistent diet. Type 2 diabetes mellitus: Recent A1c 7.1. Continue with insulin sliding scale. History of CAD: Denies of any active chest pain. Echocardiogram as above. Continue with aspirin, statin, beta-bryon. Hypertension: Goal blood pressure less than 140/90 mmHg with mean over 65. Continue with home dose of Imdur 30 mg twice daily. Also continue with metoprolol 50 mg twice daily. Hold off on amlodipine 5 mg daily. Will restart as per goal blood pressures. Continue other chronic medications. Discharge plan: We found out that patient has a brother Mr. Gonsalez. Spoke to him over the phone on number [phone]. Due to poor connection we were not able to talk in detail but he is agreeable to be in the hospital tomorrow at 11 AM for further discussions of goals of care. He is agreeable to make medical decisions. As per him patient does not have any other living relative. Full code Clear liquid diet Heparin 5000 every 12 hourly for DVT prophylaxis Protonix for PUD prophylaxis. Attestations Medical Necessity Statement*: Requires further hospitalization for management of mild to moderate cognitive impairment in setting of acute stroke while safe discharge planning is sought Diagnoses Acute CVA (cerebrovascular accident) I63.9 Altered mental status R41.82 Diabetes type 2, uncontrolled Mixed hyperlipidemia due to type 2 diabetes mellitus E11.69; E78.2 Atherosclerotic heart disease of [place] coronary artery with other forms of angina pectoris I25.118 Morbid obesity with BMI of 40.0-44.9, adult E66.01; Z68.41 Cognitive changes R41.89
--- NOTE | 2023-03-18 15:22 | PM.PN ---
Subjective Subjective: History of Present Illness Angelica Acevedo is a 62 year old female with a history of a remote stroke 2-1/2 years ago.? Approximately 2 days prior to presenting to the [facility] emergency room the patient was reported to display strange behavior on 03/14/2023. On 03/15/2023 the patient was reported to display more strange behavior associated with trouble communicating.? Today the patient's symptoms were reported to be worse and the patient's regional director of finance had the patient brought to [facility] emergency room for evaluation.? Noncontrast head CT performed on 03/16/2023 revealed acute stroke in the left temporal area. The patient was uncooperative in the emergency room and repeatedly attempted to leave the emergency department throughout? emergency room physician's evaluation as well as during my neurological evaluation.? She displayed played intermittent confusion During the neurological assessment and during questioning. The patient displayed paraphasias and some receptive aphasia. Patient answered some questions appropriately but At other times her answers were incorrect and at times her conversation did not coincide with the questions being presented. The patient was walking up and down the hallway and security had to be called.? Patient repeatedly was attempting to leave through the locked exit door. The patient stated that she had to get home to her support animal. In view of the patient's report of change in her mental status 2 days prior to presenting to the [facility] emergency room, patient was not a candidate for tenecteplase or thrombectomy. The patient is also severely allergic to IV contrast dye which resulted in anaphylactic type reaction with respiratory/airway closure, CT angiogram could not be obtained.? I was informed by the ER physician that MRA with gadolinium can be performed in the morning of 03/17/2023.? But patient may not be cooperative for the study.? I recommend the patient Not be released from the hospital secondary to potential harm to self.? I recommended obtaining carotid duplex study or MRA of the great vessels of the neck on 03/17/2023 and started aspirin and Lipitor per NIH stroke protocol.? Also I recommended patient undergo 2D echocardiogram and I agree with using sedation temporarily to keep patient from potentially harming herself and prevent patient from removing her IV Hep-Lock. On 03/18/2023 patient currently sleepy secondary to sedation for head MRI performed today. The patient's friend is at the bedside along with the [place] healthcare personnel. Patient in no apparent distress. Carotid duplex study performed on 03/17/2023 was reported to be negative. Patient underwent head MRA today which was reported to be negative. According to the patient's friend, she has been displaying decreased oral intake of food but the patient's friend stated the patient stated she only eats once a day. Past medical history: Cerebral infarction 2-1/2 years ago ENT procedure 03/14/2023 Diabetes mellitus Drug allergies: Iodinated contrast medium which resulted in anaphylactic type reaction Sulfonamide antibiotics which resulted in chest pain Walnuts which resulted in a cough Soy type reaction unknown Whey type of reaction unknown Outpatient medications on the formulary:(Note due to the patient's current medical condition the medications could not be reconciled) Norvasc 5 mg p.o. daily Aspirin 81 mg p.o. daily Albuterol 90 mcg per accusation 2 puffs every 6 hours as needed Dicyclomine 20 mg p.o. twice daily Dulagutide 0.5 mg subcutaneously every 7 days Lasix 40 mg p.o. daily Nitroglycerin 0.4 mg sublingual as needed Spironolactone 25 mg p.o. every morning Crestor 20 mg p.o. daily Metoprolol 50 mg p.o. twice daily Isosorbide mononitrate 30 mg p.o. twice a day Habits: Unknown Family history: Unable to obtain secondary to patient's change in mental status and agitation Social history: Patient reports that she lives alone with her support dog Vitals/I&O/Wt Last Vital Signs Temp 98.7 F 03/18/23 12:29 Pulse 53 L 03/18/23 12:29 Resp 16 03/18/23 12:29 BP 104/54 03/18/23 12:29 Pulse Ox 90 03/18/23 12:29 O2 Del Method Room Air 03/18/23 12:29 03/18/23 03/18/23 03/18/23 06:59 14:59 22:59 Intake Total 1600 / 1600 Output Total 200 / 300 850 / 850 Balance -200 / 180 750 / 750 Weight last 48 hrs Weight 242 lb 3.2 oz Weight 242 lb 3.2 oz Weight 223 lb Physical Exam Narrative: Vital signs stable.? Patient Currently resting. According to the patient's friend who is at the bedside the patient was given sedation for MRI.The patient is lying comfortably in the recliner next to her bed and a friend who came to visit is at the patient's bedside.? Head atraumatic.? Neck supple.? Cranial nerves II through XII grossly intact.? Pupils 3 to 4 mm reactive to light and accommodation.? Throat clear.? Motor testing grossly Nonfocal.? Deep tendon reflexes grossly symmetrical.? Lungs clear.? Pulse symmetrical in the upper extremities bilaterally. Data 03/17/23 11:15 03/17/23 11:15 A&P Assessment and plan (1) Acute CVA (cerebrovascular accident): Impression: 1. Acute versus subacute left temporal lobe infarction reported on noncontrast head CT 03/16/2023 2. Receptive aphasia with paraphasias and agitation 3. Clinically patient displays decreased ability to comprehend the seriousness of her illness and in my medical opinion with a reasonable degree of medical certainty, patient is not safe to make formative decisions with regards to her health. In my medical opinion with a reasonably of medical certainty, it is not safe for patient to be released on her own recognizance 4. History of remote stroke 2-1/2 years ago 5. History of ENT procedure 03/14/2023 Plan: 1. Awaiting noncontrast head MRI (Note: MRA of the [place] was obtained on 03/18/2023) 2. Agree with current treatment plan (2) Behavior disturbance: (3) Cognitive changes: Attestations Medical Necessity Statement*: Patient evaluated by neurology for acute left temporal lobe infarction with change in mental processing Coding Level of Care Code 66106 Diagnoses Acute CVA (cerebrovascular accident) I63.9 Behavior disturbance F91.9 Cognitive changes R41.89
[2023-03-18 16:01] VITALS: BP 176/75; PULSE 58; RESP 16; TEMP 36.6; O2SAT 98
[2023-03-18] MEDS: diphenhydrAMINE 50 mg/mL SDV 1mL 25 MG IVP (16:36)
[2023-03-18 17:18] LABS: Glucose Point of Care 87 mg/dL (70-110)
[2023-03-18 20:00] VITALS: BP 148/75; PULSE 49; PULSE 60; RESP 14; RESP 15; TEMP 36.4; O2SAT 94; O2SAT 97
[2023-03-18 20:47] LABS: Glucose Point of Care 74 mg/dL (70-110)
--- NOTE | 2023-03-18 22:26 | PC.NURSE ---
This nurse went to assess pt and administer meds as well as start a new IV. Pt refused to participate in assessment, answer questions, or take medications. She refused IV start stating I don't need that. This nurse educated pt, pt stated I don't care, I don't need that. Dr Rivers notified.
--- NOTE | 2023-03-19 04:39 | PC.NURSE ---
Pt refused morning lab draw. Pt once again refused all care including vital signs and nursing assessment. This nurse provided education. Pt stated I don't need any of that, I need to go home!
--- NOTE | 2023-03-19 07:10 | PC.NURSE ---
Sister who lives in [place] named Lana Acevedo called for an update. Patient stated she could have information. phone number is [phone].
--- NOTE | 2023-03-19 11:10 | PC.NURSE ---
LATE ENTRY - This nurse went into patient room to perform nursing shift assessment and administer am medications. This nurse explain to the patient what I would be doing and the patient state no i do not need anything, I am fine. she also stated let me go home, I am fine to go home. This nurse educated patient on the need and use of her medications and the need to be in the hospital in order to reach her maximal level of health. Patient still refused to let this nurse to administer meds and peform assessment. MD notified. No further concerns at this time.
[2023-03-19 11:33] LABS: Glucose Point of Care 101 mg/dL (70-110)
--- NOTE | 2023-03-19 15:22 | PM.PN ---
Subjective Subjective: No acute events overnight. Again seen with her friend at bedside. Patient continues to refuse any medication or be compliant with lab draws. Patient continues to remain alert and oriented only to self and date of . On asking the address she is not able to provide with any, she is not aware of being in the hospital, she is fixated on going home though does not seem to have insight for why she is in the hospital. Vitals/I&O/Wt Last Vital Signs Temp 97.5 F L 03/18/23 20:00 Pulse 49 L 03/18/23 20:00 Resp 15 03/18/23 20:00 BP 148/75 03/18/23 20:00 Pulse Ox 94 03/18/23 20:00 O2 Del Method Room Air 03/18/23 20:00 03/19/23 03/19/23 03/19/23 06:59 14:59 22:59 Intake Total 120 / 120 Balance 120 / 120 Weight last 48 hrs Weight 109.86 kg Physical Exam Narrative: General: No acute distress, AO x 2, alert te self, , place, less anxious HEENT: PERRLA, pupils bilaterally equal and reactive Chest: Normal vesicular breath sounds, with patient rhonchi lower lung field, equal good air entry bilaterally CVS: S1-S2 regular, no murmurs, no tachycardia, no gallops, no rubs Abdomen: Soft, nontender, no organomegaly, bowel sounds present Neuro: No focal deficits, power 5/5 in all limbs, able to ambulate by herself, expressive aphasia, confusion, dysarthria present Data 03/17/23 11:15 03/17/23 11:15 A&P Assessment and plan (1) Acute CVA (cerebrovascular accident): (2) Altered mental status: (3) Diabetes type 2, uncontrolled: (4) Mixed hyperlipidemia due to type 2 diabetes mellitus: (5) Atherosclerotic heart disease of [place] coronary artery with other forms of angina pectoris: (6) Morbid obesity with BMI of 40.0-44.9, adult: (7) Cognitive changes: Plan Altered mental status: In setting of acute CVA. Seen on CT head. Appreciate neurology recommendations. Plan for MRI later in the day today though would be difficult as patient is not able to follow commands and is nervous about the same. As per neurology evaluation she has been deemed not to be able to make her own reliable medical decision currently. Placed on 96-hour hold by ER physician. Sitter at bedside. Haldol 5 mg IM every 4 hours as needed, add Zyprexa Zydis 5 mg oral daily, Zyprexa IM as needed. Continue with aspirin 325 mg daily, statin. Blood pressure to be at goal of 140/90 now. Appreciate carotid Doppler, echocardiogram. Not able to get CTA as patient is allergic to contrast. PT/OT/speech evaluation. Advance diet accordingly. Currently on dysphagia level 6 carb consistent diet. Type 2 diabetes mellitus: Recent A1c 7.1. Continue with insulin sliding scale. History of CAD: Denies of any active chest pain. Echocardiogram as above. Continue with aspirin, statin, beta-bryon. Hypertension: Goal blood pressure less than 140/90 mmHg with mean over 65. Continue with home dose of Imdur 30 mg twice daily. Also continue with metoprolol 50 mg twice daily. Hold off on amlodipine 5 mg daily. Will restart as per goal blood pressures. Continue other chronic medications. Plan for the day: Care plan discussed in detail with patient and patient's friend at bedside. Discussed in detail again with the patient for needs to be compliant with medications. Patient's cognition is severely impaired and she does not seem to have proper insight into her reason being in the hospital and for her to get the medications. She is fixated on going home. We discussed that currently we are awaiting for a proper discharge plan and to be in touch with her family members for safe discharge planning as it is not safe for her to live by herself because there is a concern of cognitive impairment. We also discussed that he might be looking for guardianship. Currently not sure if patient was able to comprehend the conversation. Even at the other conversation she was fixated on going home. She is not able to name the medication she is on at home. On further discussion patient states all the talk with me is making her more confused, patient seems slightly agitated hence further talks were discontinued. Continue with oral medications as possible when available. Goal blood pressure less than 140/90 mmHg. Continue with current diet insulin sliding scale. Aspirin 325 mg daily. Patient is at high risk of ACS and further stroke as she is noncompliant to medications currently. Discharge plan: We found out that patient has a brother Mr. Gonsalez. Spoke to him over the phone on number [phone]. Due to poor connection we were not able to talk in detail but he is agreeable to be in the hospital tomorrow at 11 AM for further discussions of goals of care. He is agreeable to make medical decisions. As per him patient does not have any other living relative. 03/19: Patient's brother who was supposed to be present in the hospital at 11 AM today could not come up as he woke up late in the morning. Also found out that patient has further family including her brother and a sister in [place]. Sister's name in [place] Is Lana Acevedo with phone number [phone]. Daughter was not able to get in touch to left voice message. We will continue to do the same to discuss further discharge planning in detail. Currently patient is not safe and does not seem to be cognitively intact to make her own decisions for her to live by herself. Full code Level 6 Carb consistent diet Heparin 5000 every 12 hourly for DVT prophylaxis Protonix for PUD prophylaxis. Attestations Medical Necessity Statement*: Requires further hospitalization for management of stroke leading to significant cognitive impairment while safe discharge planning is sought. Diagnoses Acute CVA (cerebrovascular accident) I63.9 Altered mental status R41.82 Diabetes type 2, uncontrolled Mixed hyperlipidemia due to type 2 diabetes mellitus E11.69; E78.2 Atherosclerotic heart disease of [place] coronary artery with other forms of angina pectoris I25.118 Morbid obesity with BMI of 40.0-44.9, adult E66.01; Z68.41 Cognitive changes R41.89
[2023-03-19 16:00] VITALS: BP 188/83; PULSE 57; RESP 17; TEMP 36.8; O2SAT 96
[2023-03-19 17:13] LABS: Glucose Point of Care 165 mg/dL (70-110)
[2023-03-19] MEDS: isosorbide mononitrate ER 30 mg Tablet PO (17:26)
[2023-03-19] MEDS: insulin lispro 100 unit/1 mL SUBCUT (17:26)
[2023-03-19 19:45] VITALS: BP 145/79; PULSE 64; RESP 16; TEMP 36.4; O2SAT 93
[2023-03-19 20:00] VITALS: PULSE 55; RESP 15; O2SAT 95
[2023-03-19 20:55] LABS: Glucose Point of Care 101 mg/dL (70-110)
[2023-03-19] MEDS: atorvastatin 40 mg Tablet 80 MG PO (21:34)
[2023-03-19] MEDS: OLANZapine 5 mg ODT PO (21:37)
[2023-03-19] MEDS: heparin 5,000 unit/mL INJ 1 mL 5000 UNIT SUBCUT (21:37)
[2023-03-19 22:30] VITALS: O2SAT 96
--- NOTE | 2023-03-19 23:30 | PC.NURSE ---
INOCENTE reported to feature writer that patient was refusing midnight VS to be taken. Remote Sensing Technologist went to the room to speak with the patient, informed the patient of the importance of close monitoring and the risks associated with extremely high blood pressures. feature writer asked the patient if we could please get her VS, even just the blood pressure, and the patient declined, stating no, tomorrow . will continue to monitor.
[2023-03-20] VITALS (8 sets, daily range): BP systolic 137–179; BP diastolic 69–81; PULSE 46–91; RESP 16–19; TEMP 36.4–36.6; O2SAT 91–97
[2023-03-20 06:33] LABS: Glucose Point of Care 113 mg/dL (70-110)
[2023-03-20] MEDS: levothyroxine 100 mcg Tablet PO (07:49)
[2023-03-20] MEDS: aspirin 325 mg Tablet PO (07:49)
[2023-03-20] MEDS: metoprolol tartrate 50 mg Tablet PO (07:49)
[2023-03-20] MEDS: isosorbide mononitrate ER 30 mg Tablet PO ×2 (07:50→18:16)
[2023-03-20] MEDS: pantoprazole DR 40 mg Tablet PO (07:50)
[2023-03-20] MEDS: heparin 5,000 unit/mL INJ 1 mL 5000 UNIT SUBCUT ×2 (07:51→22:05)
--- NOTE | 2023-03-20 09:46 | PM.PN ---
Subjective Subjective: History of Present Illness Angelica Acevedo is a 62 year old female with a history of a remote stroke 2-1/2 years ago.? Approximately 2 days prior to presenting to the [facility] emergency room the patient was reported to display strange behavior on 03/14/2023. On 03/15/2023 the patient was reported to display more strange behavior associated with trouble communicating.? Today the patient's symptoms were reported to be worse and the patient's air plant engineer had the patient brought to [facility] emergency room for evaluation.? Noncontrast head CT performed on 03/16/2023 revealed acute stroke in the left temporal area. The patient was uncooperative in the emergency room and repeatedly attempted to leave the emergency department throughout? emergency room physician's evaluation as well as during my neurological evaluation.? She displayed played intermittent confusion During the neurological assessment and during questioning. The patient displayed paraphasias and some receptive aphasia. Patient answered some questions appropriately but At other times her answers were incorrect and at times her conversation did not coincide with the questions being presented. The patient was walking up and down the hallway and security had to be called.? Patient repeatedly was attempting to leave through the locked exit door. The patient stated that she had to get home to her support animal. In view of the patient's report of change in her mental status 2 days prior to presenting to the [facility] emergency room, patient was not a candidate for tenecteplase or thrombectomy. The patient is also severely allergic to IV contrast dye which resulted in anaphylactic type reaction with respiratory/airway closure, CT angiogram could not be obtained.? I was informed by the ER physician that MRA with gadolinium can be performed in the morning of 03/17/2023.? But patient may not be cooperative for the study.? I recommend the patient Not be released from the hospital secondary to potential harm to self.? I recommended obtaining carotid duplex study or MRA of the great vessels of the neck on 03/17/2023 and started aspirin and Lipitor per [facility] stroke protocol.? Also I recommended patient undergo 2D echocardiogram and I agree with using sedation temporarily to keep patient from potentially harming herself and prevent patient from removing her IV Hep-Lock. On 03/18/2023 patient currently sleepy secondary to sedation for head MRI scheduled for 03/18/2023 but MRA of the brain was performed and not the head MRIl.? This morning on 03/20/2023 the patient in no apparent distress. The patient is awake and sitting in the recliner next to her bed. Sitter is in the room. Patient is doing much better and was able to tell me that she was in the hospital. She is alert and oriented to person place and situation. Her speech is clear although she has some occasional paraphasias and some word finding difficulty. Patient requesting to go home. I informed the patient that will inform the admitting physician and the nurse caring for her that if the patient can be discharged to home with a family member to stay with her or another adult, she can be discharged from a neurological standpoint with outpatient occupational therapy and speech therapy. Patient reported to ambulate to the bathroom this morning without any assistance. She is eating without any issues. Carotid duplex study performed on 03/17/2023 was reported to be negative.? Patient underwent head MRA which was reported to be negative. Still awaiting the head MRI without contrast. Past medical history: Cerebral infarction 2-1/2 years ago ENT procedure 03/14/2023 Diabetes mellitus Drug allergies: Iodinated contrast medium which resulted in anaphylactic type reaction Sulfonamide antibiotics which resulted in chest pain Walnuts which resulted in a cough Soy type reaction unknown Whey type of reaction unknown Outpatient medications on the formulary: Norvasc 5 mg p.o. daily Aspirin 81 mg p.o. daily Albuterol 90 mcg per accusation 2 puffs every 6 hours as needed Dicyclomine 20 mg p.o. twice daily Dulagutide 0.5 mg subcutaneously every 7 days Lasix 40 mg p.o. daily Nitroglycerin 0.4 mg sublingual as needed Spironolactone 25 mg p.o. every morning Crestor 20 mg p.o. daily Metoprolol 50 mg p.o. twice daily Isosorbide mononitrate 30 mg p.o. twice a day Habits: Unknown Family history: Unknown Social history: Patient reports that she lives alone with her support dog Review of systems: The patient denied headaches, visual difficulty, chest pain, shortness of breath, focal weakness, numbness, or ataxia. She did report some word finding difficulty. The patient denied throat pain, abdominal pain or change in her bowels or bladder. Vitals/I&O/Wt Last Vital Signs Temp 97.5 F L 03/19/23 19:45 Pulse 81 03/20/23 07:30 Resp 16 03/20/23 07:30 BP 157/75 03/20/23 07:22 Pulse Ox 96 03/20/23 07:30 O2 Del Method Room Air 03/20/23 07:30 03/19/23 03/20/23 03/20/23 23:59 06:59 14:59 Intake Total Balance Physical Exam Narrative: Vital signs stable.? Patient Currently resting.? According to the patient's friend who is at the bedside the patient was given sedation for MRI.The patient is lying comfortably in the recliner next to her bed and a friend who came to visit is at the patient's bedside.? Head atraumatic.? Neck supple.? Cranial nerves II through XII grossly intact.? Pupils 3 to 4 mm reactive to light and accommodation.? Throat clear.? Motor testing grossly Nonfocal.? Deep tendon reflexes grossly symmetrical.? Lungs clear.? Pulse symmetrical in the upper extremities bilaterally. Data 03/17/23 11:15 03/17/23 11:15 A&P Assessment and plan (1) Acute CVA (cerebrovascular accident): Impression: 1. Acute versus subacute left temporal lobe infarction reported on noncontrast head CT 03/16/2023 2. Receptive aphasia with paraphasias, improving 3. Clinically the patient today on 03/20/2023 displays the ability to comprehend the seriousness of her illness and in my medical opinion with a reasonable degree of medical certainty, the patient is safe to start discharge planning to home with adult supervision and outpatient Physical therapy, Occupational Therapy and Speech therapy. 4. History of remote stroke 2-1/2 years ago 5. History of ENT procedure 03/14/2023 Plan: 1. Awaiting noncontrast head MRI. Recommend obtaining noncontrast head MRI to further assess the reported left temporal lobe stroke reported on head CT scan on admission (Note: MRA of the [place] was obtained on 03/18/2023) 2. Clinically the patient today on 03/20/2023 displays the ability to comprehend the seriousness of her illness and in my medical opinion with a reasonable degree of medical certainty, the patient is safe to start discharge planning to home with adult supervision and outpatient Physical therapy, Occupational Therapy and Speech therapy. 3. Recommend outpatient neuropsychological evaluation to further assess mental processing prior to allowing patient to live on her own under her own recognizance 4. If discharge planning is initiated please schedule patient for follow-up in the [facility] neurology clinic in 2 to 4 weeks (2) Cognitive changes: Attestations Medical Necessity Statement*: The patient was evaluated by neurology secondary to left temporal lobe stroke with change in mental processing Coding Level of Care Code 75520 Diagnoses Acute CVA (cerebrovascular accident) I63.9 Cognitive changes R41.89
[2023-03-20 11:42] LABS: Basophils # 0.1 10^3/uL (0.0-0.1); Basophils % 0.8 %; Eosinophils # 0.3 10^3/uL (0.0-0.8); Eosinophils % 4.4 %; Lymphocytes # 1.6 10^3/uL (0.8-4.8); Lymphocytes % 25.8 %; Mean Corpuscular HGB Conc 31.8 g/dL (30-55); Mean Corpuscular Hemoglobin 29.7 pg (27-33); Mean Corpuscular Volume 93.7 fl (85-98); Mean Platelet Volume 9.6 fL (7.4-10.4); Monocytes # 0.5 10^3/uL (0.2-0.9); Monocytes % 8.7 %; Neutrophils # 3.67 10^3/uL (1.8-7.7); Nucleated Red Blood Cells % 0 %; Platelet Count 337 10^3/cmm (157-399); Red Blood Count 4.27 10^6/uL (3.85-5.65); Red Cell Distribution Width 12.4 % (12.1-15.1); White Blood Count 6.12 10^3/uL (3.29-11.43)
[2023-03-20 11:54] LABS: Glucose Point of Care 102 mg/dL (70-110)
[2023-03-20 11:57] LABS: Alanine Aminotransferase 13 U/L (0-33); Albumin Level 3.4 g/dL (3.5-5.2); Alkaline Phosphatase 73 U/L (35-105); Anion Gap 12.8 (5-19); Aspartate Amino Transferase 17 U/L (0-32); Blood Urea Nitrogen 14 mg/dL (8-23); Calcium 8.8 mg/dL (8.5-10.5); Carbon Dioxide 24 mmol/L (22-29); Chloride 105 mmol/L (98-107); Creatinine Clr Calc Pharmacy 73.7756; Globulin 3.4 g/dL (1.3-4.6); Glucose 116 mg/dL (65-115); Osmolality Calculated 287 mOsm/kg (285-295); Potassium 3.8 mmol/L (3.5-5.1); Sodium 138 mmol/L (136-145); Total Bilirubin 0.7 mg/dL (0.15-1.2); Total Protein 6.8 g/dL (6.6-8.7)
--- NOTE | 2023-03-20 15:21 | P.PN_ITS ---
Subjective Subjective: No acute events over night. Patient is more compliant with medications. Sitting up in chair. Sitter at bedside. Patient seems slightly more alert today. Patient is alert to self, date of still not able to tell me her address. On asking why she is in the hospital she is appropriate she states she is in the hospital for a stroke. Again fixated about going home. Spoke to her brother at bedside over the phone in front of the patient. We discussed about concerns for safe discharge because of cognitive decline. Patient's brother/Anastacio is agreeable to take decisions on behalf of the patient and is agreeable to take patient to his house. Patient was agreeable for blood work today which shows normal CBC and CMP. Vitals/I&O/Wt Last Vital Signs Temp 97.9 F 03/20/23 11:54 Pulse 46 L 03/20/23 11:54 Resp 17 03/20/23 11:54 BP 152/81 03/20/23 11:54 Pulse Ox 94 03/20/23 11:54 O2 Del Method Room Air 03/20/23 11:54 03/20/23 03/20/23 03/20/23 06:59 14:59 22:59 Intake Total 360 / 360 Balance 360 / 360 Weight last 48 hrs Weight 109.86 kg Physical Exam Narrative: General: No acute distress, AO x 2, alert te self, , place, less anxious HEENT: PERRLA, pupils bilaterally equal and reactive Chest: Normal vesicular breath sounds, with patient rhonchi lower lung field, equal good air entry bilaterally CVS: S1-S2 regular, no murmurs, no tachycardia, no gallops, no rubs Abdomen: Soft, nontender, no organomegaly, bowel sounds present Neuro: No focal deficits, power 5/5 in all limbs, able to ambulate by herself, expressive aphasia, confusion, dysarthria present Data 03/20/23 11:25 03/20/23 11:25 A&P Assessment and plan (1) Acute CVA (cerebrovascular accident): (2) Altered mental status: (3) Diabetes type 2, uncontrolled: (4) Mixed hyperlipidemia due to type 2 diabetes mellitus: (5) Atherosclerotic heart disease of [place] coronary artery with other forms of angina pectoris: (6) Morbid obesity with BMI of 40.0-44.9, adult: (7) Cognitive changes: Plan Altered mental status: In setting of acute CVA. Seen on CT head. Appreciate neurology recommendations. Plan for MRI later in the day today though would be difficult as patient is not able to follow commands and is nervous about the same. As per neurology evaluation on 03/20 she seems to be improving and today she has been deemed to make her own medical decision as she has some insight. Placed on 96-hour hold by ER physician. Sitter at bedside. Haldol 5 mg IM every 4 hours as needed, add Zyprexa Zydis 5 mg oral daily, Zyprexa IM as needed. Continue with aspirin 325 mg daily, statin. Blood pressure to be at goal of 140/90 mmHg. Appreciate carotid Doppler, echocardiogram. Not able to get CTA as patient is allergic to contrast. PT/OT/speech evaluation. Patient continues to have cognitive impairment. Will request OT for further BIMS review. Advance diet accordingly. Currently on dysphagia level 6 carb consistent diet. Type 2 diabetes mellitus: Recent A1c 7.1. Continue with insulin sliding scale. History of CAD: Denies of any active chest pain. Echocardiogram as above. Continue with aspirin, statin, beta-bryon. Hypertension: Goal blood pressure less than 140/90 mmHg with mean over 65. Patient overnight having episodes of bradycardia. We will decrease dose of metoprolol to 25 mg home dose of Imdur 30 mg amlodipine 5 mg daily. Continue other chronic medications. Discharge plan: We found out that patient has a brother Mr. Gonsalez. Spoke to him over the phone on number [phone]. Due to poor connection we were not able to talk in detail but he is agreeable to be in the hospital tomorrow at 11 AM for further discussions of goals of care. He is agreeable to make medical decisions. As per him patient does not have any other living relative. 03/19: Patient's brother who was supposed to be present in the hospital at 11 AM today could not come up as he woke up late in the morning. Also found out that patient has further family including her brother and a sister in [place]. Sister's name in [place] Is Lana Acevedo with phone number [phone]. Daughter was not able to get in touch to left voice message. We will continue to do the same to discuss further discharge planning in detail. Currently patient is not safe and does not seem to be cognitively intact to make her own decisions for her to live by herself. 03/20: As per neurology patient has been improving and currently if deemed to make her own medical decisions though patient continues to have episodes of confusion on my examination. We will request BIMS reviewed with Occupational Therapy. If improving on the same can plan to discharge depending on the score. Poke with patient's brother Anastacio over the phone in front of the patient. He is agreeable to take the responsibility of making medical decisions for the patient. He is also agreeable to take patient to his own home. Requested Mr. Gonsalez to be present in the hospital to make further arrangements. He states he will be available later in the day. For now we will continue to wait. Full code Level 6 Carb consistent diet Heparin 5000 every 12 hourly for DVT prophylaxis Protonix for PUD prophylaxis. Attestations Medical Necessity Statement*: Patient requires further hospitalization For safe discharge planning in setting of significant cognitive decline because of acute stroke, patient on 96-hour hold Diagnoses Acute CVA (cerebrovascular accident) I63.9 Altered mental status R41.82 Diabetes type 2, uncontrolled Mixed hyperlipidemia due to type 2 diabetes mellitus E11.69; E78.2 Atherosclerotic heart disease of [place] coronary artery with other forms of angina pectoris I25.118 Morbid obesity with BMI of 40.0-44.9, adult E66.01; Z68.41 Cognitive changes R41.89
--- NOTE | 2023-03-20 16:54 | ECG_ITS ---
[facility] Test Date: 2023-03-20 Pat Name: Angelica Acevedo Department: Room: 255 Gender: Female Accident Examiner: : [id number] Requested By: Derrek Farr Order Number: [id number] Shayy MD: Linda Mcpherson M.D. Measurements Intervals [place] Rate: 45 P: 38 WV: 130 QRS: -40 QRSD: 106 T: 5 QT: 472 QTc: 410 Interpretive Statements SINUS BRADYCARDIA LEFT AXIS DEVIATION [QRS AXIS < -30] PATTERN CONSISTENT WITH PULMONARY DISEASE VOLTAGE CRITERIA FOR LVH [MEETS CRITERIA IN ONE OF: R(aVL), S(V1), R(V5), R(V5/V6)+S(V1)] Compared to ECG 08/22/2022 15:30:24 Left-axis deviation now present Myocardial infarct finding no longer present Electronically Signed On 03-20-2023 22:31:44 DINKING MACHINE OPERATOR by Linda Mcpherson M.D. [id number]
[2023-03-20 21:30] LABS: Glucose Point of Care 125 mg/dL (70-110)
[2023-03-20] MEDS: OLANZapine 5 mg ODT PO (22:04)
[2023-03-20] MEDS: metoprolol tartrate 25 mg Tablet PO (22:05)
[2023-03-20] MEDS: atorvastatin 40 mg Tablet 80 MG PO (22:05)
[2023-03-21 03:36] VITALS: BP 149/82; PULSE 48; RESP 18; TEMP 36.5; O2SAT 96
--- NOTE | 2023-03-21 07:42 | P.PN_ITS ---
Subjective Subjective: History of Present Illness Angelica Acevedo is a 62 year old female with a history of a remote stroke 2-1/2 years ago.? Approximately 2 days prior to presenting to the [facility] e mergency room the patient was reported to display strange behavior on 03/14/2023. On 03/15/2023 the patient was reported to display more strange behavior associated with trouble communicating.? 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 Noncontrast head CT performed on 03/16/2023 revealed acute stroke in the left temporal area. The patient was uncooperative in the emergency room and repeatedly attempted to leave the emergency department throughout? emergency room physician's evaluation as well as during my neurological evaluation.? She displayed played intermittent confusion During the neurological assessment and during questioning. The patient displayed paraphasias and some receptive aphasia. Patient answered some questions appropriately but At other times her answers were incorrect and at times her conversation did not coincide with the questions being presented. The patient was walking up and down the hallway and security had to be called.? Patient repeatedly was attempting to leave through the locked exit door. The patient stated that she had to get home to her support animal. In view of the patient's report of change in her mental status 2 days prior to presenting to the [facility] emergency room, patient was not a candidate for tenecteplase or thrombectomy. The patient is also severely allergic to IV contrast dye which resulted in anaphylactic type reaction with respiratory/airway closure, CT angiogram could not be obtained.? I was informed by the ER physician that MRA with gadolinium can be performed in the morning of 03/17/2023.? But patient may not be cooperative for the study.? I recommend the patient Not be released from the hospital secondary to potential harm to self.? I recommended obtaining carotid duplex study or MRA of the great vessels of the neck on 03/17/2023 and started aspirin and Lipitor per [facility] stroke protocol.? Also I recommended patient undergo 2D echocardiogram and I agree with using sedation temporarily to keep patient from potentially harming herself and prevent patient from removing her IV Hep-Lock. On 03/18/2023 patient was sleepy secondary to sedation for head MRI scheduled for 03/18/2023 but MRA of the brain was performed and not the head MRI.? This morning on 03/21/2023 the patient is in no apparent distress.? The patient is awake and sitting on the side of her bed.? Sitter is in the room.? Patient is doing much better and was able to tell me that she was in the hospital.? She is alert and oriented to person and was able to tell me her name and date of but she thought she was [address] and situation.? Her speech is clear although she has some occasional paraphasias and some word finding difficulty.? Patient requesting to go home.? I again informed the patient that I informed the admitting physician and the nurse caring for her that if the patient can be discharged to home with a family member to stay with her or another adult, she can be discharged from a neurological standpoint with outpatient occupational therapy and speech therapy.? Patient reported to ambulate to the bathroom this morning without any assistance.? She is eating without any issues.? Carotid duplex study performed on 03/17/2023 was reported to be negative.? 2D echocardiogram was obtained and reported to be negative with ejection fraction of 55 to 60%. Patient underwent head MRA which was reported to be negative. Still awaiting the head MRI without contrast. Past medical history: Cerebral infarction 2-1/2 years ago ENT procedure 03/14/2023 Diabetes mellitus Drug allergies: Iodinated contrast medium which resulted in anaphylactic type reaction Sulfonamide antibiotics which resulted in chest pain Walnuts which resulted in a cough Soy type reaction unknown Whey type of reaction unknown Outpatient medications on the formulary: Norvasc 5 mg p.o. daily Aspirin 81 mg p.o. daily Albuterol 90 mcg per accusation 2 puffs every 6 hours as needed Dicyclomine 20 mg p.o. twice daily Dulagutide 0.5 mg subcutaneously every 7 days Lasix 40 mg p.o. daily Nitroglycerin 0.4 mg sublingual as needed Spironolactone 25 mg p.o. every morning Crestor 20 mg p.o. daily Metoprolol 50 mg p.o. twice daily Isosorbide mononitrate 30 mg p.o. twice a day Habits: Unknown Family history: Unknown Social history: Patient reports that she lives alone with her support dog Review of systems: The patient denied headaches, visual difficulty, chest pain, shortness of breath, focal weakness, numbness, or ataxia.? She did report some word finding difficulty.? The patient denied throat pain, abdominal pain or change in her bowels or bladder. Vitals/I&O/Wt Last Vital Signs Temp 97.7 F 03/21/23 03:36 Pulse 48 L 03/21/23 03:36 Resp 18 03/21/23 03:36 BP 149/82 03/21/23 03:36 Pulse Ox 96 03/21/23 03:36 O2 Del Method Room Air 03/21/23 03:36 03/20/23 03/21/23 03/21/23 22:59 06:59 14:59 Intake Total 120 / 480 Balance 120 / 480 Weight last 48 hrs Weight 242 lb 3.2 oz Physical Exam Const: OTHER: Patient is sitting on the side of her bed awake and in no apparent distress. Patient still displaying some paraphasias and was unable to repeat. She was oriented to person. She was able to tell me her name and date of but not her age. She stated she was 43 years old instead of stating she was 62 years old. Patient was aware she was in the hospital. Patient follows commands. She is cooperative. There is no obvious focal weakness. Head atraumatic.? Neck supple.? Cranial nerves II through XII grossly intact.? Pupils 3 to 4 mm reactive to light and accommodation.? Throat clear.? Motor testing grossly Nonfocal.? Deep tendon reflexes grossly symmetrical.? Lungs clear.? Pulse symmetrical in the upper extremities bilaterally. Data 03/20/23 11:25 03/20/23 11:25 A&P Assessment and plan (1) Acute CVA (cerebrovascular accident): Impression: 1. Acute versus subacute left temporal lobe infarction reported on noncontrast head CT 03/16/2023 2. Receptive aphasia with paraphasias, improving 3. Clinically the patient today on 03/21/2023 appears to display the ability to comprehend the seriousness of her illness and in my medical opinion with a reasonable degree of medical certainty, the patient is safe to start discharge planning to home with adult supervision and outpatient Physical therapy, Occupational Therapy and Speech therapy after completion of head MRI without contrast 4. History of remote stroke 2-1/2 years ago 5. History of ENT procedure 03/14/2023 Plan: 1. Awaiting noncontrast head MRI.? Recommend obtaining noncontrast head MRI to further assess the reported left temporal lobe stroke reported on head CT scan on admission (Note: MRA of the [place] of [place] was obtained on 03/18/2023) 2. Clinically the patient today on 03/21/2023 continues to display the ability to comprehend the seriousness of her illness and in my medical opinion with a reasonable degree of medical certainty, the patient is safe to start discharge planning to home with adult supervision and outpatient Physical therapy, Occupational Therapy and Speech therapy once noncontrast head MRI has been completed and evaluated. 3.? Recommend outpatient neuropsychological evaluation to further assess mental processing prior to allowing patient to live on her own under her own recognizance (2) Cognitive changes: Attestations Medical Necessity Statement*: Patient evaluated by neurology for left temporal lobe stroke with change in mental processing and paraphasias Coding Level of Care Code 70264 Diagnoses Acute CVA (cerebrovascular accident) I63.9 Cognitive changes R41.89
[2023-03-21] MEDS: amlodipine 5 mg Tablet PO (08:36)
[2023-03-21] MEDS: aspirin 325 mg Tablet PO (08:36)
[2023-03-21] MEDS: pantoprazole DR 40 mg Tablet PO (08:36)
[2023-03-21] MEDS: levothyroxine 100 mcg Tablet PO (08:37)
[2023-03-21] MEDS: isosorbide mononitrate ER 30 mg Tablet PO (08:37)
[2023-03-21] MEDS: heparin 5,000 unit/mL INJ 1 mL 5000 UNIT SUBCUT (08:48)
--- NOTE | 2023-03-21 13:38 | P.DS_ITS ---
Discharge Providers Date of Admission: 03/16/23 20:02 Date of Discharge: March 21, 2023 Attending Provider at Admission: Derrek Farr MD Attending Provider at Discharge: Santos Miller MD Consults: Neurology Primary Care Provider: Cj Gonzalez MD Diagnoses at Discharge Discharge Diagnosis (1) Acute CVA (cerebrovascular accident): Status: Inactive (2) Cognitive changes: Status: Resolved Reason for Visit Reason for Visit: Carlos sent for possible ams Hospital Course Hospital Course Angelica Acevedo is a 62-year-old female with a past medical history significant for hypothyroidism, coronary artery disease, congestive heart failure, type II diabetes mellitus, GERD, stroke with left-sided weakness, hypertension, irritable bowel syndrome, and morbid obesity who presented with altered mental status, found to have acute CVA. Neurology was consulted and followed. Patient's mentation significantly improved with treatment. She became oriented and demonstrated medical decision-making capacity. The original 96-hour hold was lifted. She worked with therapy. Patient was found to have a brother who agreed to help patient after discharge. Patient discharged home with family in stable condition with plans to establish home health. Physical Exam Narrative: General: Patient is awake and alert. Head: Normocephalic. Atraumatic. EOM intact. Neck: No JVD. Cardiovascular: RRR. No gallops. No murmurs. No peripheral edema. Lungs: Clear to auscultation, no use of accessory muscles, no crackles or wheezes. Skin: No jaundice. No rashes. Abdomen: Normal bowel sounds, abdomen soft and nontender. Genito Urinary: Genital exam not performed since complaints not related. Rectal: Rectal exam not performed since no symptoms indicated blood loss. Extremities: No cyanosis or clubbing. Musculoskeletal: 5/5 strength, normal range of motion, no swollen or erythematous joints. Neurological: Moves all 4 extremities. No myoclonus. Discharge Data Studies Completed and Pending Completed Studies During Hospitalization Category Date Time Status CT head wo con* [id number] Stat Cat Scan 03/16/23 16:32 Completed XR KUB portable [id number] Stat Exams 03/17/23 11:05 Completed XR chest 1V portable [id number] Stat Exams 03/17/23 11:05 Completed MR angio head wo con [id number] Routine MRI 03/18/23 07:25 Completed CV carotid duplex BI* [id number] Routine Ultrasound 03/17/23 13:34 Completed CV. echo complete* [id number] Routine Ultrasound 03/17/23 Completed Radiology Impressions Head CT 03/16/23 16:32 IMPRESSION: New asymmetric hypodensity is seen in the left temporal lobe suspicious for possible acute ischemia given history. Recommend MRI brain correlation. ADDENDUM: 03/16/23 [id number] THIS REPORT CONTAINS FINDINGS THAT MAY BE CRITICAL TO PATIENT CARE. The findings were verbally communicated via telephone conference with LINA Vera at 5:28 PM CDT on 03/16/2023. The findings were acknowledged and understood. Chest X-Ray 03/17/23 11:05 IMPRESSION: No acute findings. KUB X-Ray 03/17/23 11:05 IMPRESSION: 1. Normal bowel gas pattern 2. Mild stool burden. 3. No radio-dense foreign body. Laboratory Results WBC 6.12 10^3/uL (3.29-11.43) 03/20/23 11:25 RBC 4.27 10^6/uL (3.85-5.65) 03/20/23 11:25 Hgb 12.70 g/dL (11.27-16.99) 03/20/23 11:25 Hct 40.0 % (36-47) 03/20/23 11:25 MCV 93.7 fl (85-98) 03/20/23 11:25 MCH 29.7 pg (27-33) 03/20/23 11:25 MCHC 31.8 g/dL (30-55) 03/20/23 11:25 RDW 12.4 % (12.1-15.1) 03/20/23 11:25 Plt Count 337 10^3/cmm (157-399) 03/20/23 11:25 MPV 9.6 fL (7.4-10.4) 03/20/23 11:25 Neut % (Auto) 60.0 % 03/20/23 11:25 Lymph % (Auto) 25.8 % 03/20/23 11:25 [place] % (Auto) 8.7 % 03/20/23 11:25 Eos % (Auto) 4.4 % 03/20/23 11:25 Baso % (Auto) 0.8 % 03/20/23 11:25 Neut # (Auto) 3.67 10^3/uL (1.8-7.7) 03/20/23 11:25 Lymph # (Auto) 1.6 10^3/uL (0.8-4.8) 03/20/23 11:25 [place] # (Auto) 0.5 10^3/uL (0.2-0.9) 03/20/23 11:25 Eos # (Auto) 0.3 10^3/uL (0.0-0.8) 03/20/23 11:25 Baso # (Auto) 0.1 10^3/uL (0.0-0.1) 03/20/23 11:25 Nucleated RBC % (auto) 0 % 03/20/23 11:25 Nucleated RBCs # 0.0 /100WBC 03/20/23 11:25 Sodium 138 mmol/L (136-145) 03/20/23 11:25 Potassium 3.8 mmol/L (3.5-5.1) 03/20/23 11:25 Chloride 105 mmol/L (98-107) 03/20/23 11:25 Carbon Dioxide 24 mmol/L (22-29) 03/20/23 11:25 Anion Gap 12.8 (5-19) 03/20/23 11:25 BUN 14 mg/dL (8-23) 03/20/23 11:25 Creatinine 0.9 mg/dL (0.5-0.9) 03/20/23 11:25 GFR Calculation 63.0 mL/min (90-130) L 03/20/23 11:25 Glucose 116 mg/dL (65-115) H 03/20/23 11:25 POC Glucose 125 mg/dL (70-110) H 03/20/23 21:27 Calculated Osmolality 287 mOsm/kg (285-295) 03/20/23 11:25 Calcium 8.8 mg/dL (8.5-10.5) 03/20/23 11:25 Phosphorus 2.7 mg/dL (2.5-4.5) 03/17/23 11:15 Magnesium 2.1 mg/dL (1.7-2.3) 03/17/23 11:15 Iron 53 ug/dL (37-145) 03/16/23 16:41 TIBC 337 mcg/dl 03/16/23 16:41 % Saturation 15.7 % (20-50) L 03/16/23 16:41 Unsat Iron Binding 284 ug/dL (112-347) 03/16/23 16:41 Total Bilirubin 0.7 mg/dL (0.15-1.2) 03/20/23 11:25 AST 17 U/L (0-32) 03/20/23 11:25 ALT 13 U/L (0-33) 03/20/23 11:25 Alkaline Phosphatase 73 U/L (35-105) 03/20/23 11:25 Ammonia 24 umol/L (11-51) 03/16/23 23:20 Total Protein 6.8 g/dL (6.6-8.7) 03/20/23 11:25 Albumin 3.4 g/dL (3.5-5.2) L 03/20/23 11:25 Globulin 3.4 g/dL (1.3-4.6) 03/20/23 11:25 Vitamin B12 264 pg/mL (232-1245) 03/16/23 16:41 Folate > 20.0 ng/mL (4.8-37.3) 03/17/23 11:15 Procalcitonin 0.04 ng/mL (0-0.5) 03/16/23 16:41 TSH Cancelled 03/16/23 16:41 Urine Color Light yellow (Yellow) 03/17/23 17:30 Urine Appearance Hazy (CLEAR) A 03/17/23 17:30 Urine pH 5 (5-7) 03/17/23 17:30 Ur Specific [place] 1.015 (1.005-1.030) 03/17/23 17:30 Urine Protein 2+ (Negative) H 03/17/23 17:30 Urine Glucose (UA) Norm (Normal) 03/17/23 17:30 Urine Ketones Negative (Negative) 03/17/23 17:30 Urine Blood Neg (Negative) 03/17/23 17:30 Urine Nitrate Negative (Negative) 03/17/23 17:30 Urine Bilirubin Neg (Negative) 03/17/23 17:30 Urine Urobilinogen Neg mg/dL (Negative) 03/17/23 17:30 Ur Leukocyte Esterase Trace (Negative) H 03/17/23 17:30 Urine RBC None /hpf (0-2) 03/17/23 17:30 Urine WBC 10-15 /hpf (0-5) H 03/17/23 17:30 Ur Squamous Epith Cells 10-15 /hpf (0-5) H 03/17/23 17:30 Amorphous Sediment Not Reportable 03/17/23 17:30 Urine Bacteria 2+ /hpf (NONE) H 03/17/23 17:30 Urine Mucus 2+ /hpf 03/17/23 17:30 Urine Opiates Screen Negative ng/mL (Negative) 03/17/23 17:30 Ur Barbiturates Screen Negative ng/mL (Negative) 03/17/23 17:30 Ur Phencyclidine Scrn Negative ng/mL (Negative) 03/17/23 17:30 Ur Amphetamines Screen Negative ng/mL (Negative) 03/17/23 17:30 U Benzodiazepines Scrn Positive ng/mL (Negative) H 03/17/23 17:30 Urine Cocaine Screen Negative ng/mL (Negative) 03/17/23 17:30 U Marijuana (THC) Screen Negative ng/mL (Negative) 03/17/23 17:30 RPR Nonreactive (Nonreactive) 03/16/23 23:20 Vitals Last Vital Signs Temp 97.7 F 03/21/23 03:36 Pulse 48 L 03/21/23 03:36 Resp 18 03/21/23 03:36 BP 149/82 03/21/23 03:36 Pulse Ox 96 03/21/23 03:36 O2 Del Method Room Air 03/21/23 03:36 Discharge Plan Discharge Patient Disposition: Home Condition: Stable Prescriptions: New atorvastatin 40 mg Tablet 80 mg PO BEDTIME 30 Days Qty: 30 1RF aspirin 325 mg Tablet 325 mg PO DAILY 30 Days Qty: 30 1RF olanzapine 5 mg Tablet,Disintegrating 5 mg PO BEDTIME 30 Days Qty: 30 1RF Continued (DME) Diabetic shoes with 3 sets of inserts See Rx Instructions .Route .MEDSUPPLY Qty: 1 0RF Rx Instructions: [place] [facility] [place] [place] with 3 inserts See Rx Instructions .ROUTE .MEDSUPPLY Qty: 1 0RF Rx Instructions: As directed (DME) pen needle, diabetic 33 gauge x 5/32 needle See Rx Instructions .ROUTE .MEDSUPPLY Qty: 100 2RF Rx Instructions: 1 time day furosemide [Lasix] 20 mg tablet 40 mg PO QAM PRN (Reason: edema & blood pressure) Qty: 60 5RF budesonide-formoterol [Symbicort] 80-4.5 mcg/actuation HFA aerosol inhaler 2 puff inhalation BID Qty: 10.2 6RF guaifenesin [Mucinex] 600 mg tablet extended release 12hr 600 mg PO BID PRN (Reason: congestion) Qty: 30 6RF albuterol sulfate 90 mcg/actuation HFA aerosol inhaler 2 puff inhalation Q6H PRN (Reason: shortness of breath or wheezing) Qty: 8.5 6RF nitroglycerin [Nitrostat] 0.4 mg tablet, sublingual 0.4 mg sublingual Q5M PRN (Reason: chest pain) Qty: 25 3RF Rx Instructions: do not exceed 3 doses per episode (DME) pen needle, diabetic [BD Ultra-Fine Micro Pen Needle] 32 gauge x 1/4 needle See Rx Instructions .Route Qty: 100 3RF Rx Instructions: using daily (DME) OneTouch Verio test strips Strip See Rx Instructions .Route Qty: 400 0RF Rx Instructions: Check up to 2 to 3 times daily isosorbide mononitrate 30 mg tablet extended release 24 hr 30 mg PO BID@0700,2200 Qty: 60 5RF Victoza 3-Johnny 0.6 mg/0.1 mL (18 mg/3 mL) pen injector 0.6 mg SUBCUT DAILY Qty: 9 0RF Victoza 3-Johnny 0.6 mg/0.1 mL (18 mg/3 mL) pen injector 1.2 mg SUBCUT DAILY Qty: 9 0RF Victoza 2-Johnny 0.6 mg/0.1 mL (18 mg/3 mL) pen injector 1.8 mg SUBCUT DAILY Qty: 6 0RF metoprolol tartrate 50 mg tablet 50 mg PO BID amlodipine 5 mg tablet 5 mg PO DAILY spironolactone 25 mg tablet 25 mg PO QAM PRN (Reason: Edema) levothyroxine 100 mcg tablet 100 mcg PO QAM omeprazole magnesium 20 mg capsule,delayed release(DR/EC) 20 mg PO BID PRN (Reason: Acid Reflux) potassium chloride 20 mEq tablet extended release 20 meq PO DAILY PRN (Reason: K replacement) Discontinued aspirin 81 mg tablet,delayed release (DR/EC) 81 mg PO DAILY@2200 Qty: 90 3RF naproxen [EC-Naproxen] 500 mg tablet,delayed release (DR/EC) 500 mg PO BID PRN (Reason: pain) Qty: 30 0RF Discharge Orders: Discharge Order (Routine); Ordered 03/21/23 Ordered By: Santos Miller Referrals: Cj Gonzalez MD [Primary Care Provider] - 4-7 days Discharge Diet: Advance as tolerated and Usual diet Discharge Activity: Resume usual activity and Increase activity as tolerated Patient Instructions: Cognitive Dysfunction, Ischemic Stroke (DC), Altered Mental Status (GEN), Opioid Safety Activity Restrictions/Additional Instructions: 1. Increase activity as tolerated. 2. No driving or operating heavy machinery until cleared by PCP. 3. Follow up with providers for referral for neuropsychological?testing. Discharge Attestations Time Spent in Discharge Care*: greater than 30 min Quality Metrics Clinical Quality Measures [ No reported AMI, CVA or VTE this stay] Coding Level of Care Code Acute Code for Chg Fwd Diagnoses Acute CVA (cerebrovascular accident) I63.9 Cognitive changes R41.89
--- NOTE | 2023-03-21 14:12 | PC.NURSE ---
Discharge education completed with Marquez and Angelica including ADLs that require assistance (i.e cooking), medication administration times, and that Angelica should not be driving. Marquez verbalizes understanding. Extensive information given on pt diagnosis and AMS. Marquez asks this nurse to send medications to [facility] pharmacy, not [facility]. This nurse calls [facility] pharmacy verbal medication orders, and cancels [facility] orders via phone. Notifies Marquez and Angelica of the change. This RN explains to Angelica and Marquez that follow-up visit must be scheduled by them. This is because Angelica and Marquez were anxious to leave before appointment could be made. All patient belongings gathered and sent with Chiquis.
[2023-03-21 14:22] VITALS: BP 149/82; PULSE 48; RESP 18; TEMP 36.5; O2SAT 96
== END 2023-03-21 14:24 | disposition home or self-care (01) | DRG 65 ==
LOC: ER 19:34 → MEDSURG 20:07
PROVIDERS: Admitting Provider Student in an Organized Health Care Education/Training Program; Emergency Provider Internal Medicine; PCP Family Medicine; Visit Provider Internal Medicine
DX: I63.9 Cerebral infarction, unspecified (principal); I50.32 Chronic diastolic (congestive) heart failure; Z68.41 Body mass index [BMI] 40.0-44.9, adult; I69.354 Hemiplegia and hemiparesis following cerebral infarction affecting left non-dominant side; R47.01 Aphasia; E03.9 Hypothyroidism, unspecified; I25.10 Atherosclerotic heart disease of native coronary artery without angina pectoris; Z95.5 Presence of coronary angioplasty implant and graft; Z86.16 Personal history of COVID-19; E11.9 Type 2 diabetes mellitus without complications; K58.9 Irritable bowel syndrome, unspecified; E66.01 Morbid (severe) obesity due to excess calories; E78.2 Mixed hyperlipidemia; I11.0 Hypertensive heart disease with heart failure; K21.9 Gastro-esophageal reflux disease without esophagitis
CPT/HCPCS: 36415; 36416; 70450; 70544; 71045; 74018; 80053; 80306; 81001; 82140; 82607; 82746; 82962; 83540; 83550; 83735; 84100; 84145; 85025; 86592; 92507; 92523; 92526; 92610; 93005; 93306; 93880; 94664; 96372; 96374; 97116; 97161; 97165; 97168; 97530; 99285; C9113; J1200; J1630; J1644; J1815; J2060; J3490; J7030

== ENCOUNTER → 2023-05-25 10:58 | Outpatient (BNVA) | payer MEDICARE, MEDICAID, SELFPAY | PROVIDERS: PCP Family Medicine; Visit Provider Specialist | DX: I63.412 Cerebral infarction due to embolism of left middle cerebral artery (principal); I69.30 Unspecified sequelae of cerebral infarction; R51.9 Headache, unspecified; F41.9 Anxiety disorder, unspecified | CPT/HCPCS: 99215 ==

== ENCOUNTER → 2023-06-03 08:24 | Outpatient (BNVA) | payer MEDICARE, MEDICAID, SELFPAY | PROVIDERS: PCP Family Medicine; Visit Provider Internal Medicine Pulmonary Disease | DX: I50.32 Chronic diastolic (congestive) heart failure (principal); I25.10 Atherosclerotic heart disease of native coronary artery without angina pectoris; I69.30 Unspecified sequelae of cerebral infarction; R13.10 Dysphagia, unspecified; J82.83 Eosinophilic asthma | CPT/HCPCS: 99214 ==

== ENCOUNTER → 2023-06-13 09:35 | Outpatient (BNVA) | payer MEDICARE, MEDICAID, SELFPAY | PROVIDERS: PCP Family Medicine; Visit Provider Internal Medicine | DX: E03.8 Other specified hypothyroidism (principal); E11.69 Type 2 diabetes mellitus with other specified complication; E78.2 Mixed hyperlipidemia; E66.01 Morbid (severe) obesity due to excess calories; Z68.41 Body mass index [BMI] 40.0-44.9, adult; R41.82 Altered mental status, unspecified; Z79.890 Hormone replacement therapy; Z79.85 Long-term (current) use of injectable non-insulin antidiabetic drugs | CPT/HCPCS: 99215 ==

== ENCOUNTER 2023-06-15 12:27 | Outpatient (CLI) | payer MEDICARE, MEDICAID, SELFPAY ==
--- NOTE | 2023-06-15 13:00 | CT_ITS ---
WS: [id number] CT HEAD NONCONTRAST HISTORY: I63.512 - Cerebral infarction due to unspecified occlusio... TECHNIQUE: Contiguous axial imaging performed through the brain in 2.5 mm imaging. Bone and soft tiss ue windows. Sagittal and coronal reformats reviewed. All CT scans at [facility] use at least one of these dose optimization techniques: automated exposure control; mA and/or kV adjustment per pa tient size (includes targeted exams where dose is matched to clinical indication); or iterative recon struction. DLP: 1045.05 mGy.cm COMPARISON: 03/16/2023 No acute intracranial hemorrhage, midline shift or mass effect. There is several new areas of decreased attenuation developed since 03/16/2023. Along the LEFT lateral ventricle there is several areas of decreased attenuation consistent with small lacunar infarcts. Th ere is additional lacunar infarct toward the LEFT thalamus. Prior lacunar infarct inferior LEFT tempo ral lobe. Ventricles: Normal size with no hydrocephalus. Paranasal sinuses: As visualized are clear. Mastoid air cells: Well pneumatized. Calvarium and scalp: Skull is intact with no soft tissue edema or swelling. IMPRESSION: 1. No acute hemorrhage. 2. New lacunar infarcts and remote ischemic changes since 03/16/2023 involving the LEFT temporal lobe , LEFT thalamus and along the LEFT lateral ventricle. These are not acute changes but new since 2022. Otherwise negative.
== END 2023-06-15 12:28 | disposition home or self-care (01) ==
LOC: RAD 12:27
PROVIDERS: PCP Family Medicine; Visit Provider Specialist
DX: Z86.73 Personal history of transient ischemic attack (TIA), and cerebral infarction without residual deficits (principal)
CPT/HCPCS: 70450

== ENCOUNTER → 2023-06-27 10:26 | Outpatient (BNVA) | payer MEDICARE, MEDICAID, SELFPAY | PROVIDERS: PCP Family Medicine; Visit Provider Internal Medicine | DX: E03.8 Other specified hypothyroidism (principal); E11.9 Type 2 diabetes mellitus without complications; E66.01 Morbid (severe) obesity due to excess calories; Z68.41 Body mass index [BMI] 40.0-44.9, adult; R41.82 Altered mental status, unspecified; Z79.890 Hormone replacement therapy | CPT/HCPCS: 36415; 80053; 80061; 83036; 84439; 84443; 99214 ==

== ENCOUNTER 2023-07-01 08:20 | Outpatient (CLI) | payer MEDICARE, MEDICAID, SELFPAY ==
--- NOTE | 2023-07-01 08:30 | FL_ITS ---
WS: [id number] Barium swallow and esophagram, 07/01/2023 Clinical Data: Stroke 3 months ago, trouble swallowing. Comparison: Barium swallow, 09/13/2018 Fluoroscopy time: 1min [id number] # of spot films: 22 Findings: The patient swallowed the thick and thin barium, and it flowed through the hypopharynx without hesita tion. No stricture, mass, polyp or erosion was seen. There is osteoarthritic spurring of the C4-C7 ve rtebra which impinged slightly onto the posterior hypopharynx. No aspiration or penetration was seen. The barium entered the esophagus and there was poor motility throughout. No hiatal hernia, reflux, st ricture, polyp, mass, erosion or ulcer was noted. The patient was unable to recline and no imaging wa s performed in the prone position.. Impression: 1. 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 2. Poor esophageal motility but no hiatal hernia or reflux was observed.
== END 2023-07-01 08:21 | disposition home or self-care (01) ==
LOC: RAD 08:20
PROVIDERS: PCP Family Medicine; Visit Provider Internal Medicine Pulmonary Disease
DX: R13.10 Dysphagia, unspecified (principal); M47.812 Spondylosis without myelopathy or radiculopathy, cervical region; R93.3 Abnormal findings on diagnostic imaging of other parts of digestive tract
CPT/HCPCS: 74220

== ENCOUNTER → 2023-07-12 14:45 | Outpatient (BNVA) | payer MEDICARE, MEDICAID, SELFPAY | PROVIDERS: PCP Family Medicine; Visit Provider Podiatrist Foot & Ankle Surgery | DX: E11.65 Type 2 diabetes mellitus with hyperglycemia (principal); Z79.4 Long term (current) use of insulin; L60.3 Nail dystrophy; I73.9 Peripheral vascular disease, unspecified | CPT/HCPCS: 11721 ==

== ENCOUNTER → 2023-07-19 11:34 | Outpatient (BNVA) | payer MEDICARE, MEDICAID, SELFPAY | PROVIDERS: PCP Electrodiagnostic Medicine; Visit Provider Specialist | DX: I69.320 Aphasia following cerebral infarction (principal) | CPT/HCPCS: 99214 ==

== ENCOUNTER → 2023-08-17 13:30 | Outpatient (BNVA) | payer MEDICARE, MEDICAID, SELFPAY | PROVIDERS: PCP Electrodiagnostic Medicine; Visit Provider Specialist | DX: I69.30 Unspecified sequelae of cerebral infarction (principal); I63.512 Cerebral infarction due to unspecified occlusion or stenosis of left middle cerebral artery | CPT/HCPCS: 99214 ==

== ENCOUNTER → 2023-08-25 13:44 | Outpatient (BNVA) | payer MEDICARE, MEDICAID, SELFPAY | PROVIDERS: PCP Electrodiagnostic Medicine; Visit Provider Internal Medicine Pulmonary Disease | DX: I50.32 Chronic diastolic (congestive) heart failure (principal); I25.10 Atherosclerotic heart disease of native coronary artery without angina pectoris; I69.30 Unspecified sequelae of cerebral infarction; R13.10 Dysphagia, unspecified; J82.83 Eosinophilic asthma | CPT/HCPCS: 99214 ==

== ENCOUNTER → 2023-08-30 12:52 | Outpatient (BNVA) | payer MEDICARE, MEDICAID, SELFPAY | PROVIDERS: PCP Electrodiagnostic Medicine; Visit Provider Internal Medicine | DX: I50.32 Chronic diastolic (congestive) heart failure (principal); I25.10 Atherosclerotic heart disease of native coronary artery without angina pectoris; E03.8 Other specified hypothyroidism; E66.01 Morbid (severe) obesity due to excess calories; Z68.41 Body mass index [BMI] 40.0-44.9, adult; I69.391 Dysphagia following cerebral infarction; R41.82 Altered mental status, unspecified; K22.9 Disease of esophagus, unspecified; E11.59 Type 2 diabetes mellitus with other circulatory complications; Z79.890 Hormone replacement therapy | CPT/HCPCS: 80053; 80061; 83036; 84439; 84443; 99214 ==

== ENCOUNTER → 2023-09-01 14:35 | Outpatient (BNVA) | payer MEDICARE, MEDICAID, SELFPAY | PROVIDERS: PCP Electrodiagnostic Medicine; Visit Provider Otolaryngology | DX: K22.9 Disease of esophagus, unspecified (principal); R13.14 Dysphagia, pharyngoesophageal phase; K22.4 Dyskinesia of esophagus; M25.78 Osteophyte, vertebrae | CPT/HCPCS: 99204 ==

== ENCOUNTER 2023-09-14 08:56 | Outpatient (RCR) | payer MEDICAID, SELFPAY | END 2023-10-14 23:59 | disposition home or self-care (01) | LOC: SST 08:56 | PROVIDERS: PCP Electrodiagnostic Medicine; Visit Provider Internal Medicine | DX: R22.9 Localized swelling, mass and lump, unspecified (principal); R13.10 Dysphagia, unspecified | CPT/HCPCS: 92507; 92523; 92610 ==

== ENCOUNTER 2023-09-15 11:57 | Outpatient (CLI) | payer MEDICAID, SELFPAY ==
--- NOTE | 2023-09-15 11:30 | FL_ITS ---
WS: [id number] FL barium swallow modifd 81530 REASON FOR EXAM: Difficulty swallowing FLUOROSCOPY TIME: 2min [id number] # OF SPOT FILMS: 1 FINDINGS: Examination was supervised by the speech therapy department. The patient was examined in the sitting upright lateral projection. Multiple swallows of varying consistency barium were monitored fluoroscopically and video recorded. Detailed report of the swallowing will be rendered by the speech therapy department. FL/FL barium swallow modifd [id number] IMPRESSION: Modified barium swallow as above.
== END 2023-09-15 11:58 | disposition home or self-care (01) ==
LOC: RAD 11:58
PROVIDERS: PCP Electrodiagnostic Medicine; Visit Provider Otolaryngology
DX: K22.9 Disease of esophagus, unspecified (principal); R13.10 Dysphagia, unspecified
CPT/HCPCS: 74230; 92611

== ENCOUNTER → 2023-09-29 10:52 | Outpatient (BNVA) | payer MEDICARE, MEDICAID, SELFPAY | PROVIDERS: PCP Electrodiagnostic Medicine; Visit Provider Otolaryngology | DX: R13.14 Dysphagia, pharyngoesophageal phase (principal) | CPT/HCPCS: 99213 ==

== ENCOUNTER 2023-10-05 06:00 | Outpatient (RCR) | payer MEDICARE, MEDICAID, SELFPAY | END 2023-10-14 23:59 | disposition home or self-care (01) | LOC: SPT 06:00 | PROVIDERS: PCP Electrodiagnostic Medicine; Visit Provider Electrodiagnostic Medicine | DX: Z86.73 Personal history of transient ischemic attack (TIA), and cerebral infarction without residual deficits (principal) | CPT/HCPCS: 95992; 97161 ==

== ENCOUNTER 2023-10-15 06:00 | Outpatient (RCR) | payer OTHER, MEDICAID, SELFPAY | END 2023-11-13 23:59 | disposition home or self-care (01) | LOC: SST 06:00 | PROVIDERS: PCP Electrodiagnostic Medicine; Visit Provider Internal Medicine | DX: R13.12 Dysphagia, oropharyngeal phase (principal); K22.9 Disease of esophagus, unspecified | CPT/HCPCS: 92507 ==

== ENCOUNTER 2023-11-04 11:00 | Outpatient (CLI) | payer OTHER, MEDICAID, SELFPAY ==
--- NOTE | 2023-11-04 11:27 | USCV_ITS ---
Angelica Arambula Age: 63 Gender: F : 1960 Exam Date: 11/04/2023 12:24 Ordering Phys: Claudio Doty DO Technologist: [employer] [place]am [place] [facility] [place]: syncope BP: 156 / 76 HR: 55 Rhythm: Sinus Technical Quality: Suboptimal MEASUREMENTS (Male / Female) Normal Values 2D ECHO LV Diastolic Diameter PLAX 4.0 cm 4.2 - 5.9 / 3.9 - 5.3 cm IVS Diastolic Thickness 1.1 cm 0.6 - 1.0 / 0.6 - 0.9 cm IVS Systolic Thickness 1.7 cm LVPW Diastolic Thickness 1.6 cm 0.6 - 1.0 / 0.6 - 0.9 cm LVPW Systolic Thickness 1.8 cm LVOT Diameter 2.0 cm LV Ejection Fraction 2D Teich 63.7 % LV Ejection Fraction MOD 2C 57.8 % LV Ejection Fraction 2C AL 60.2 % LA Diameter 4.1 cm RA Systolic Volume 4C AL 46.9 ml RA Systolic Volume 4C MOD 46.2 ml LA Sys Volume AL 49.9 cm cubed LA Sys Volume Index AL 22.9 cm cubed/m squared Aorta at Sinotubular Diameter 2.3 cm IVC Diameter 1.9 cm M-MODE LA Ao Ratio MM 1.5 AV Cusp Separation MM 1.6 cm DOPPLER AV Peak Velocity 111.3 cm/s LVOT Peak Velocity 62.0 cm/s AV Area Cont Eq vti 2.0 cm squared AV Area Cont Eq pk 1.8 cm squared MV Peak Velocity 85.0 cm/s MV Area PHT 4.4 cm squared Mitral E to A Ratio 0.8 TV Peak Velocity 234.5 cm/s TR Peak Velocity 278.0 cm/s TR Peak Gradient 30.9 mmHg TR Mean Velocity 230.0 cm/s TR Mean Gradient 21.8 mmHg TR Velocity Time Integral 83.7 cm Right Atrial Pressure 3.0 mmHg Pulmonary Artery Systolic Pressu 33.9 mmHg PV Peak Velocity 80.3 cm/s RV Ejection Time 0.4 s FINDINGS Left Ventricle Normal left ventricular size, systolic function and wall thickness, with no regional wall motion abnormalities. Grade I/IV diastolic dysfunction (abnormal relaxation filling pattern), normal to mildly elevated filling pressures. Left ventricular ejection fraction is estimated at 60 %. Right Ventricle Normal right ventricular size and systolic function. Normal right ventricular systolic pressure. Right Atrium The right atrium is normal in size. Left Atrium Mildly increased left atrial size. Mitral Valve Structurally normal mitral valve without significant stenosis or prolapse. There is no mitral regurgitation. Aortic Valve Structurally normal trileaflet aortic valve. No aortic valve stenosis. Mild aortic valve regurgitation. Tricuspid Valve Structurally normal tricuspid valve. Mild tricuspid valve regurgitation. Pulmonic Valve Pulmonic valve not well visualized. Trace pulmonary valve regurgitation. Pericardium Normal pericardium without effusion. Aorta Normal ascending aorta dimension. IVC Inferior vena cava not visualized. CONCLUSIONS Normal left ventricular size, systolic function and wall thickness, with no regional wall motion abnormalities. Grade I/IV diastolic dysfunction (abnormal relaxation filling pattern), normal to mildly elevated filling pressures. Left ventricular ejection fraction is estimated at 60 %. Mildly increased left atrial size. Structurally normal trileaflet aortic valve. No aortic valve stenosis. Mild aortic valve regurgitation. Previous echo was done March of last year. No significant change. Dr. Harris Carson MD (Electronically Signed) Final Date: 05 November 2023 12:59 S
--- NOTE | 2023-11-04 11:27 | USCV_ITS ---
ArambulaAngelica Age: 63 Gender: F : 1960 Exam Date: 11/04/2023 12:00 Ordering Phys: Claudio Doty DO Technologist: [employer] Exam Location: [facility] – [place] Indication: syncope Risk Factors: Previous Vascular Surgery: Right Brachial BP: / Left Brachial BP: / Right Left Velocity (cm/s) Spectral Plaque Velocity (cm/s) Spectral Plaque Syst/Diast Broadening Syst/Diast Broadening 74.50/ 11.50 Prox CCA 84.70 / 18.60 61.90/ 8.00 Mid CCA 81.40 / 20.60 48.70/ 0.00 Distal CCA 70.70 / 13.40 67.50/ 14.90 Prox ICA 63.70 / 10.00 50.80/ 14.90 Mid ICA 68.00 / 22.80 57.20/ 17.40 Distal ICA 47.10 / 12.90 117.50 ECA 147.80 1.40 ICA/CCA 1.00 Antegrade Vertebral Antegrade 46.60/ 15.10 cm/s 45.70/ 14.60 cm/s Tri Subclavian Tri 118.0 125.0 0 0 CONCLUSIONS Right ICA stenosis <50%. Mild atheromatous plaque right carotid bulb/ICA. Left ICA stenosis <50%. Mild atheromatous plaque left carotid bulb/ICA. Normal antegrade Doppler flow noted in the right vertebral artery. Normal antegrade Doppler flow noted in the left vertebral artery. Brandon Emmanuel MD (Electronically Signed) Final Date: 04 November 2023 16:40 S
== END 2023-11-04 11:09 | disposition home or self-care (01) ==
PROVIDERS: PCP Electrodiagnostic Medicine; Visit Provider Electrodiagnostic Medicine
DX: R55 Syncope and collapse (principal); I50.30 Unspecified diastolic (congestive) heart failure
CPT/HCPCS: 93306; 93880

== ENCOUNTER 2023-11-14 06:00 | Outpatient (RCR) | payer MEDICARE, MEDICAID, SELFPAY | END 2023-12-14 23:59 | disposition home or self-care (01) | LOC: SST 06:00 | PROVIDERS: PCP Electrodiagnostic Medicine; Visit Provider Internal Medicine | DX: K22.9 Disease of esophagus, unspecified (principal); R13.10 Dysphagia, unspecified | CPT/HCPCS: 92507 ==

== ENCOUNTER 2023-11-14 06:00 | Outpatient (RCR) | payer MEDICARE, MEDICAID, SELFPAY | END 2023-12-09 08:37 | disposition home or self-care (01) | LOC: SPT 06:00 | PROVIDERS: PCP Electrodiagnostic Medicine; Visit Provider Electrodiagnostic Medicine | DX: Z86.73 Personal history of transient ischemic attack (TIA), and cerebral infarction without residual deficits (principal) | CPT/HCPCS: 97164 ==

== ENCOUNTER → 2023-12-12 08:30 | Outpatient (BNVA) | payer MEDICARE, MEDICAID, SELFPAY | PROVIDERS: PCP Electrodiagnostic Medicine; Visit Provider Podiatrist Foot & Ankle Surgery | DX: E11.65 Type 2 diabetes mellitus with hyperglycemia (principal); Z79.4 Long term (current) use of insulin; L60.3 Nail dystrophy; I73.9 Peripheral vascular disease, unspecified; M21.41 Flat foot [pes planus] (acquired), right foot; M21.42 Flat foot [pes planus] (acquired), left foot | CPT/HCPCS: 11721; 99213 ==

== ENCOUNTER 2023-12-28 06:00 | Outpatient (RCR) | payer MEDICARE, MEDICAID, SELFPAY | END 2024-01-14 23:59 | disposition home or self-care (01) | LOC: APT 06:00 | PROVIDERS: PCP Electrodiagnostic Medicine; Visit Provider Electrodiagnostic Medicine | DX: M62.81 Muscle weakness (generalized) (principal) | CPT/HCPCS: 97110; 97112; 97162 ==

== ENCOUNTER 2024-01-09 12:50 | Outpatient (CLI) | payer MEDICARE, MEDICAID, SELFPAY ==
--- NOTE | 2024-01-09 12:54 | XR_ITS ---
WS: [id number] Exam: XR knee RT 3V* [id number] Date/Time of Exam: 01/09/2024 12:54 PM Reason For Exam: PAIN IN RIGHT LOWER LIMB Comparison 08/15/2023. Moderate tricompartmental DJD noted particularly involving the lateral compartment. Marginal osteophy elaine along the lateral compartment and the posterior patella. Very small joint effusion in the suprapa tellar bursa. Soft tissues are otherwise unremarkable. XR/XR knee RT 3V* [id number] IMPRESSION: 1. Moderate tricompartmental DJD noted. Small joint effusion.
== END 2024-01-09 12:51 | disposition home or self-care (01) ==
LOC: RADOUTREAD 12:52
PROVIDERS: PCP Electrodiagnostic Medicine; Visit Provider Electrodiagnostic Medicine
DX: J82.83 Eosinophilic asthma (principal); T17.910A Gastric contents in respiratory tract, part unspecified causing asphyxiation, initial encounter; T17.320A Food in larynx causing asphyxiation, initial encounter; K22.4 Dyskinesia of esophagus; R13.19 Other dysphagia; W44.F3XA Food entering into or through a natural orifice, initial encounter; J69.0 Pneumonitis due to inhalation of food and vomit; R06.09 Other forms of dyspnea; R13.14 Dysphagia, pharyngoesophageal phase; Z91.89 Other specified personal risk factors, not elsewhere classified; X58.XXXA Exposure to other specified factors, initial encounter; Z68.39 Body mass index [BMI] 39.0-39.9, adult
CPT/HCPCS: 99214

== ENCOUNTER 2024-01-15 06:00 | Outpatient (RCR) | payer MEDICARE, MEDICAID, SELFPAY | END 2024-02-13 23:59 | disposition home or self-care (01) | LOC: APT 06:00 | PROVIDERS: PCP Electrodiagnostic Medicine; Visit Provider Electrodiagnostic Medicine | DX: M62.81 Muscle weakness (generalized) (principal) | CPT/HCPCS: 97110; 97112; 97116 ==

== ENCOUNTER 2024-01-15 06:30 | Outpatient (RCR) | payer MEDICARE, MEDICAID, SELFPAY | END 2024-02-13 23:59 | disposition home or self-care (01) | LOC: AST 06:30 | PROVIDERS: PCP Electrodiagnostic Medicine; Visit Provider Internal Medicine Critical Care Medicine | DX: R13.19 Other dysphagia (principal); T17.320A Food in larynx causing asphyxiation, initial encounter; W44.F3XA Food entering into or through a natural orifice, initial encounter; K22.4 Dyskinesia of esophagus; X58.XXXA Exposure to other specified factors, initial encounter | CPT/HCPCS: 92507; 92523; 92526; 92610 ==

== ENCOUNTER → 2024-01-26 08:16 | Outpatient (BNVA) | payer MEDICARE, MEDICAID, SELFPAY | PROVIDERS: PCP Electrodiagnostic Medicine; Visit Provider Internal Medicine | DX: E03.8 Other specified hypothyroidism (principal); E11.9 Type 2 diabetes mellitus without complications; E66.01 Morbid (severe) obesity due to excess calories; Z68.41 Body mass index [BMI] 40.0-44.9, adult; R41.82 Altered mental status, unspecified; K22.9 Disease of esophagus, unspecified; R13.14 Dysphagia, pharyngoesophageal phase | CPT/HCPCS: 36415; 84439; 84443; 99214 ==

== ENCOUNTER 2024-02-03 11:24 | Outpatient (CLI) | payer MEDICARE, MEDICAID, SELFPAY ==
--- NOTE | 2024-02-03 11:32 | USCV_ITS ---
Angelica Arambula Age: 63 Gender: F : 1960 Exam Date: 02/03/2024 11:45 Ordering Phys: Claudio Doty DO Technologist: CT Exam Location: [facility] – [place] Indication: Risk Factors: Previous Vascular Surgery: RIGHT LEFT BP: 137.0 / 88.00 BP: / 0 Waveform Velocity (cm/s) Velocity (cm/s) Waveform Triphasic Iliac Prox Triphasic Iliac Mid Triphasic Iliac Distal Triphasic 131.0 DIGITAL ADVERTISING SPECIALIST Biphasic 167.0 SFA Prox Biphasic 153.0 SFA Mid Biphasic 186.0 SFA Dist Biphasic 158.0 POP Monophasic 27.0 [employer]ANT Biphasic 141.0 DPA 0.9 CALIN FINDINGS Mild diffuse plaque in the iliac, femoral and popliteal artery on the right side. Monophasic arterial Doppler waveform in the posterior tibial artery Resting CALIN of 0.9 on the right side. CONCLUSIONS 1. Mildly diminished resting CALIN of 0.9 on the right side, suggesting mild peripheral arterial disease. 2. Minimal plaques in the iliac, femoral and popliteal artery on the right side Dr Rebel Mitchell MD [facility] (Electronically Signed) Final Date: 03 February 2024 18:29 S
== END 2024-02-03 11:25 | disposition home or self-care (01) ==
LOC: RAD 11:25
PROVIDERS: PCP Electrodiagnostic Medicine; Visit Provider Electrodiagnostic Medicine
DX: M79.604 Pain in right leg (principal); R94.39 Abnormal result of other cardiovascular function study
CPT/HCPCS: 93926

== ENCOUNTER 2024-02-14 06:00 | Outpatient (RCR) | payer MEDICARE, MEDICAID, SELFPAY | END 2024-03-15 23:59 | disposition home or self-care (01) | LOC: APT 06:00 | PROVIDERS: PCP Electrodiagnostic Medicine; Visit Provider Electrodiagnostic Medicine | DX: M62.81 Muscle weakness (generalized) (principal) | CPT/HCPCS: 97110 ==

== ENCOUNTER 2024-02-14 06:00 | Outpatient (RCR) | payer MEDICARE, MEDICAID, SELFPAY | END 2024-03-15 23:59 | disposition home or self-care (01) | LOC: AST 06:00 | PROVIDERS: PCP Electrodiagnostic Medicine; Visit Provider Internal Medicine Critical Care Medicine | DX: T17.320A Food in larynx causing asphyxiation, initial encounter (principal); W44.F3XA Food entering into or through a natural orifice, initial encounter; R13.19 Other dysphagia; X58.XXXA Exposure to other specified factors, initial encounter | CPT/HCPCS: 92526 ==

== ENCOUNTER → 2024-03-08 08:00 | Outpatient (BNVA) | payer MEDICARE, MEDICAID, SELFPAY | PROVIDERS: PCP Electrodiagnostic Medicine; Visit Provider Specialist | DX: I69.30 Unspecified sequelae of cerebral infarction (principal); I63.512 Cerebral infarction due to unspecified occlusion or stenosis of left middle cerebral artery; G44.309 Post-traumatic headache, unspecified, not intractable | CPT/HCPCS: 99214 ==

== ENCOUNTER → 2024-04-04 12:30 | Outpatient (BNVA) | payer MEDICARE, MEDICAID, SELFPAY | PROVIDERS: PCP Electrodiagnostic Medicine; Visit Provider Internal Medicine Cardiovascular Disease | DX: R07.9 Chest pain, unspecified (principal) | CPT/HCPCS: 93005; 99214 ==

== ENCOUNTER → 2024-05-31 11:30 | Outpatient (BNVA) | payer MEDICARE, MEDICAID, SELFPAY | PROVIDERS: PCP Electrodiagnostic Medicine; Referring Provider Electrodiagnostic Medicine; Visit Provider Specialist | DX: M79.604 Pain in right leg (principal) | CPT/HCPCS: 95910 ==

== ENCOUNTER → 2024-06-15 10:32 | Outpatient (BNVA) | payer MEDICARE, MEDICAID, SELFPAY | PROVIDERS: PCP Electrodiagnostic Medicine; Visit Provider Clinical Nurse Specialist Adult Health | DX: J06.9 Acute upper respiratory infection, unspecified (principal) | CPT/HCPCS: 87400; 87426 ==

== ENCOUNTER → 2024-08-14 10:32 | Outpatient (BNVA) | payer MEDICARE, MEDICAID, SELFPAY | PROVIDERS: PCP Electrodiagnostic Medicine; Visit Provider Podiatrist Foot & Ankle Surgery | DX: E11.65 Type 2 diabetes mellitus with hyperglycemia (principal); E11.8 Type 2 diabetes mellitus with unspecified complications; Z79.4 Long term (current) use of insulin; L60.3 Nail dystrophy; I73.9 Peripheral vascular disease, unspecified; M21.41 Flat foot [pes planus] (acquired), right foot; M21.42 Flat foot [pes planus] (acquired), left foot | CPT/HCPCS: 99213 ==

== ENCOUNTER → 2024-09-21 10:23 | Outpatient (BNVA) | payer MEDICARE, SELFPAY | PROVIDERS: PCP Electrodiagnostic Medicine; Referring Provider Electrodiagnostic Medicine; Visit Provider Specialist | DX: G62.89 Other specified polyneuropathies (principal) | CPT/HCPCS: 99213 ==

== ENCOUNTER 2024-09-25 14:04 | Outpatient (CLI) | payer MEDICARE, MEDICAID, SELFPAY ==
--- NOTE | 2024-09-25 14:00 | MM_ITS ---
WS: [id number] BILATERAL 3D TOMOSYNTHESIS DIGITAL SCREENING MAMMOGRAPHY WITH CAD CLINICAL INFORMATION: SCREENING HISTORY: Screening mammogram. No current complaints. COMPARISON: 2020 TECHNIQUE: Bilateral CC and MLO views. FINDINGS: Scattered fibroglandular densities bilaterally. No suspicious focal mass, asymmetry, calcifications, or architectural distortion. No evidence of malignancy. A few incidental calcifications. MM/MM [facility] tomosynthesis [id number] IMPRESSION: DENSITY: There are scattered areas of fibroglandular density. BI-RADS: 2 - Benign. FOLLOW UP: 1 Year Follow-up Recommend return to annual screening mammography.
== END 2024-09-25 14:05 | disposition home or self-care (01) ==
PROVIDERS: PCP Electrodiagnostic Medicine; Visit Provider Electrodiagnostic Medicine
DX: Z12.31 Encounter for screening mammogram for malignant neoplasm of breast (principal); R92.323 Mammographic fibroglandular density, bilateral breasts; R92.1 Mammographic calcification found on diagnostic imaging of breast
CPT/HCPCS: 77063; 77067

== ENCOUNTER → 2024-10-04 12:47 | Outpatient (BNVA) | payer MEDICARE, MEDICAID, SELFPAY | PROVIDERS: PCP Electrodiagnostic Medicine; Visit Provider Internal Medicine | DX: R13.14 Dysphagia, pharyngoesophageal phase (principal) | CPT/HCPCS: 36415; 84439; 84443 ==

== ENCOUNTER → 2024-10-29 11:35 | Outpatient (BNVA) | payer MEDICARE, MEDICAID, SELFPAY | PROVIDERS: PCP Electrodiagnostic Medicine; Visit Provider Internal Medicine | DX: R13.14 Dysphagia, pharyngoesophageal phase (principal); K22.9 Disease of esophagus, unspecified; E03.8 Other specified hypothyroidism; E11.9 Type 2 diabetes mellitus without complications; E78.2 Mixed hyperlipidemia; I25.10 Atherosclerotic heart disease of native coronary artery without angina pectoris; I50.32 Chronic diastolic (congestive) heart failure; E66.01 Morbid (severe) obesity due to excess calories; Z68.41 Body mass index [BMI] 40.0-44.9, adult | CPT/HCPCS: 36415; 80053; 82044; 82248; 83036; 84439; 84443 ==

== ENCOUNTER → 2025-03-28 09:35 | Outpatient (BNVA) | payer MEDICARE, MEDICAID, SELFPAY | PROVIDERS: PCP Electrodiagnostic Medicine; Visit Provider Podiatrist Foot & Ankle Surgery | DX: I73.9 Peripheral vascular disease, unspecified (principal); E11.8 Type 2 diabetes mellitus with unspecified complications; E11.65 Type 2 diabetes mellitus with hyperglycemia; Z79.4 Long term (current) use of insulin; L60.3 Nail dystrophy; M21.41 Flat foot [pes planus] (acquired), right foot; M21.42 Flat foot [pes planus] (acquired), left foot; R09.89 Other specified symptoms and signs involving the circulatory and respiratory systems | CPT/HCPCS: 99213 ==

== ENCOUNTER 2025-04-08 12:22 | Outpatient (CLI) | payer MEDICARE, MEDICAID, SELFPAY ==
--- NOTE | 2025-04-08 12:45 | USR_ITS ---
PROCEDURE INFORMATION: Exam: US Duplex Bilateral Lower Extremity Arteries Exam date and time: 04/08/2025 12:49 PM Age: 64 years old Clinical indication: Condition or disease; Peripheral vascular disease; Additional info: Pad TECHNIQUE: Imaging protocol: Real-time ultrasound scan of the arteries of the bilateral lower extremities with 2-D shaffer scale, color Doppler flow and spectral waveform analysis. Images documented and saved. COMPARISON: CR XR knee RT 3V* [id number] 04/18/2024 12:29 PM FINDINGS: The bilateral common iliac arteries are patent with velocities ranging from 70-122 cm/sec, within normal limits. Biphasic waveforms seen in the right leg arteries, with monophasic waveform seen in the right posterior tibial artery. Peak velocity in the right proximal and mid superficial femoral artery measuring between 150-175 cm/sec, corresponding with 30-49% stenosis by velocity measurements. Peak velocity in the right distal superficial femoral artery measuring 201 cm/sec, corresponding with 50-75% stenosis by velocity measurements. Peak velocity in the popliteal artery of 153 cm/sec, corresponding with 30-49% stenosis by velocity measurements. Remaining right lower extremity arteries demonstrate peak velocities of less than 150 cm/sec, within the normal range. Biphasic waveforms seen in the left leg arteries, with monophasic waveforms seen in the left posterior tibial artery and dorsalis pedis artery. Peak velocity in the left mid superficial femoral artery of 217 cm/sec, corresponding with 50-75% stenosis by velocity measurements. Peak velocities of the remaining left lower extremity arteries measure less than 150 cm/sec, within the normal range. Right ankle branchial index of 1, which is within the normal range. Left ankle-brachial index not obtained. US/CV arterial duplex [facility] [id number] IMPRESSION: 1. No occlusion or high-grade stenosis in the lower extremity arteries identified by ultrasound. 2. Abnormal biphasic waveforms seen in both lower extremity arteries, with monophasic waveforms seen in the bilateral posterior tibial arteries and left dorsalis pedis artery. 3. Areas of 50-75% stenosis in the right distal superficial femoral artery and left mid superficial femoral artery by velocity measurements. 4. Areas of 30-49% stenosis in the right proximal/mid superficial femoral artery and right popliteal artery by velocity measurements. 5. Right ankle branchial index of 1, which is within the normal range. Left ankle-brachial index not obtained. 6. If clinically warranted, lower extremity CTA could be performed for further evaluation.
== END 2025-04-08 12:23 | disposition home or self-care (01) ==
PROVIDERS: PCP Electrodiagnostic Medicine; Visit Provider Podiatrist Foot & Ankle Surgery
DX: I73.9 Peripheral vascular disease, unspecified (principal)
CPT/HCPCS: 93925